=== PATIENT | male | born 1975 | race Caucasian/White ===

== ENCOUNTER 2017-02-09 07:43 | Emergency (ER) | payer OTHER ==
[~2017-02-09] VITALS: Ht 172.7 cm; Wt 146.0 kg
[~2017-02-09 07:43] MED LIST: ALBU0.08 INH; ASPCH81X PO; ATOR10TA88 PO; BUPRTAB51 PO; HYDR50TA3 PO; LISI20TA3 PO; MONT1TAB3 PO; NTRGSL/4 UT; PANT40TA PO; POTA-327 PO; VERA240T20 PO; VNTHFA/IN INH
[2017-02-09 07:45] VITALS: Ht 172.7 cm; Wt 146.0 kg
[2017-02-09] MEDS ORDERED: POTA10CA28 PO (08:16)
[2017-02-09] MEDS ORDERED: ALBINS/ INH (08:21)
[2017-02-09 08:40] LABS: BASO % 0.2 %; BASO ABS # 0.02 K/uL (0-0.2); COMPLETE YES; EOS % 0.6 %; HEMATOCRIT 42.5 % (42-52); IG% 0.8 %; LYMPH % 11.2 %; LYMPH ABS # 1.38 K/uL (1.2-3.4); MEAN CELL VOLUME 88.7 fL (80-100); MEAN CORPUSCULAR HEMOGLOBIN 30.3 pg (25-34); MEAN CORPUSCULAR HGB CONC 34.1 g/dl (32-36); MONO % 8.1 %; NEUT % 79.1 %; PLATELET COUNT 319 K/uL (130-400); RED BLOOD COUNT 4.79 M/uL (4.7-6.1); WHITE BLOOD COUNT 12.27 K/uL (4.8-10.8)
[2017-02-09 08:52] LABS: PROTHROMBIN TIME (PATIENT) 10.8 SECONDS (9.0-12.0)
[2017-02-09 08:57] LABS: BUN/CREATININE RATIO 13.6 (10-20); CALCIUM 8.4 mg/dl (8.5-10.1); POTASSIUM 3.7 mmol/L (3.5-5.1)
[2017-02-09 09:01] LABS: ALB/GLOB RATIO 0.8 (0.9-2); CKMB/CK RATIO 0.7 (0-3.0)
--- NOTE | 2017-02-09 09:50 | DIAGNOSTIC IMAGING REPORT ---
CHEST 2 VIEWS ROUTINE HISTORY: cough, chest pain COMPARISON: Chest 11/26/2016. FINDINGS: The lungs remain clear. The heart is normal in size. No pleural effusions. No pneumothorax. IMPRESSION: No acute process. Electronically signed by: Aguilar Juarez M.D. 02/09/2017 9:48 AM Dictated Date/Time: 02/09/2017 9:47 AM
--- NOTE | 2017-02-09 09:54 | DIAGNOSTIC IMAGING REPORT ---
LEFT RIBS UNILATERAL MIN 2 VIEWS CLINICAL HISTORY: left rib pain, fall yesterday COMPARISON STUDY: Chest 02/09/2017. FINDINGS: No acute left rib fractures. No pneumothorax. IMPRESSION: No acute left rib fractures. Electronically signed by: Aguilar Juarez M.D. 02/09/2017 9:52 AM Dictated Date/Time: 02/09/2017 9:51 AM
[2017-02-09 11:24] VITALS: BP 138/81; PULSE 79; TEMP 36.8; O2SAT 98
[2017-02-09] MEDS ORDERED: AZITTAB PO ×2 (11:54→12:06)
--- NOTE | 2017-02-09 11:54 | EMERGENCY ROOM VISIT NOTE ---
History First contact with patient: 07:49 Chief Complaint: CARDIAC ASSESSMENT Stated Complaint: TIGHTNESS IN CHEST, LEFT ARM PAIN, FELL Nursing Triage Summary: pt to the ED with c/o fall yesterday and went out to shovel and now has chest tightness and cough with burning fell on left side and has rib pain and couldn't sleep History of Present Illness Patient is a 41-year-old white male with past medical history significant for morbid obesity, asthma, hypertension, GERD and history of renal cell carcinoma status post partial left nephrectomy. He presents to the emergency department for evaluation of chest pain, shortness of breath, cough and left-sided rib pain. Patient reports that he had an upper respiratory illness for about a week. He reports sinus pressure, nasal congestion and a slight cough. Yesterday, he felt like his symptoms are worsened. He noted his cough was productive of some scant yellow sputum, but he felt more short of breath. He also developed some left-sided chest discomfort that he describes as both burning and aching in nature, which radiated slightly to the left upper chest and shoulder. He did nebulizer treatments 2 yesterday without relief. He also reports that he sustained a fall to his left side yesterday when he went out to [facility]. This occurred around 8:00 in the morning. He states that he tried to shovel, but had to stop due to his shortness of breath. He did not note any worsening pain with the exertion. He had difficulty sleeping due to his shortness of breath. He reports feeling slightly nauseous, and vomited up water that he had to drink early this morning. He reports a remote history of a PE about 3 years ago which occurred in the setting of a surgical procedure. His most recent cardiac catheterization was in December of this year performed in [place] which was reportedly clear. The patient has a family history of an early cardiac , but he himself has never had an OH. He had nitroglycerin, but did not use it for his chest pain because he did not feel that it was related to his heart. He has not had a fever. He presently rates his left- sided red/chest discomfort a 10/10. Review of Systems Review of systems as per HPI. All other systems reviewed were negative. 10 systems reviewed. Past Medical/Surgical History Medical Problems: (1) ASTHMA, UNSPECIFIED, W (ACUTE) EXACERBATION (2) Asthma, Unspecified, W (Acute) Exacerbation (3) Asthma, Unspecified, W (Acute) Exacerbation (4) BENIGN HYPERTENSION (5) BODY MASS INDEX 50.0-59.9, ADULT (6) Cancer of kidney (7) Diab Hannah Wo Compl, Type Ii Or Unspec Type, Not Uncntrld (8) GENERALIZED ANXIETY DIS (9) HX-PENICILLIN ALLERGY (10) Hypertension Nos (11) MORBID OBESITY (12) Renal cell carcinoma Electronic medical records are reviewed and summarized as above/below. See Problem List. Family History Diabetes mellitus FH: heart disease Hypertension Social History Smoking Status: Never Smoker Alcohol Use: none Drug Use: none Marital Status: Housing Status: lives with family Occupation Status: employed Current/Historical Medications Scheduled Albuterol Sulf (Proventil 0.083% 2.5MG/3ML), 2.5 MG INH HS Aspirin (Aspirin Chewable), 81 MG PO QAM Atorvastatin (Lipitor), 10 MG PO QAM Azithromycin (Zithromax Z-Yehuda), 0 PO UD Bupropion (Wellbutrin-Xl), 300 MG PO QAM Hydrochlorothiazide (Hctz), 50 MG PO QAM Lisinopril (Prinivil), 40 MG PO QAM Montelukast Sodium (Singulair), 10 MG PO QAM Pantoprazole (Protonix), 40 MG PO BID Potassium Chloride (Micro-K Ext Rel), 10 MEQ PO BID Verapamil Sust Rel (Calan Sr Ext Rel), 240 MG PO QAM Scheduled PRN Albuterol Hfa (Ventolin Hfa), 2 PUFFS INH QID PRN for Shortness of Breath Nitroglycerin (Nitrostat), 0.4 MG UT UD PRN for Chest Pain Allergies Coded Allergies: Acetaminophen (Unverified Allergy, Intermediate, UPSET STOMACH/ NO BOWEL MOVEMENT, 02/09/17) Ketorolac (Unverified Allergy, Intermediate, UPSET STOMACH/ ITCHY, 02/09/17 ) Oxycodone (Unverified Allergy, Intermediate, UPSET STOMACH/ NO BOWEL MOVEMENT, 02/09/17) Penicillins (Verified Allergy, Mild, THROAT SWELLING, 02/09/17) Physical Exam Vital Signs Date Time Temp Pulse Resp B/P Pulse Ox O2 Delivery O2 Flow Rate FiO2 02/09/17 11:24 36.8 79 18 138/81 98 Room Air 02/09/17 09:50 78 18 144/89 98 Room Air 02/09/17 08:08 85 02/09/17 07:45 37.2 93 20 173/106 96 Physical Exam CONSTITUTIONAL: Patient is obese 41-year-old white male who is awake and alert and in no acute distress. Oxygen saturation is 96% on room air. Respiratory rate 20 and unlabored. No conversational dyspnea noted. EYES: Pupils equal, round, reactive to light and accommodation. EOMs intact without nystagmus. Sclera are anicteric. ENT: Tympanic membranes intact, with normal landmarks. External canals are clear. Oral and nasopharynx are clear. Mucous membranes are moist, no lesions , tongue and gums appear normal. NECK: No bruits auscultated. Supple without lymphadenopathy. No thyromegaly. No meningeal signs. Full active range of motion without discomfort. CARDIOVASCULAR: Regular rate and rhythm, with normal S1 and S2, no murmur or gallop or rub is heard. No carotid bruits auscultated. No JVD. Peripheral pulses easy to palpable. RESPIRATORY: Breath sounds equal and clear to auscultation without wheezes, rales, or rhonchi heard. Full and equal chest expansion without accessory muscle use or retractions. He has slight tenderness to palpation over the inferior left mid axillary line. GI: Bowel sounds are present. Abdomen is soft, nontender, nondistended. No organomegaly. No pulsatile masses. No guarding or rebound. MUSCULOSKELETAL: Full range of motion of extremities x 4 with good strength. No cyanosis, edema, joint tenderness or swelling. No deformity. INTEGUMENTARY: No lesions or rash, normal skin turgor. NEUROLOGICAL: Alert, oriented, and cooperative. Cranial nerves, sensation and strength grossly intact. Pupils round, equal, and react to light, EOMs are full. LYMPH: No lymphadenopathy. Medical Decision & Procedures ER Provider Diagnostic Interpretation: CHEST 2 VIEWS ROUTINE HISTORY: cough, chest pain COMPARISON: Chest 11/26/2016. FINDINGS: The lungs remain clear. The heart is normal in size. No pleural effusions. No pneumothorax. IMPRESSION: No acute process. LEFT RIBS UNILATERAL MIN 2 VIEWS CLINICAL HISTORY: left rib pain, fall yesterday COMPARISON STUDY: Chest 02/09/2017. FINDINGS: No acute left rib fractures. No pneumothorax. IMPRESSION: No acute left rib fractures. Laboratory Results 02/09/17 08:30 Red Blood Count 4.79, Mean Corpuscular Volume 88.7, Mean Corpuscular Hemoglobin 30.3, Mean Corpuscular Hemoglobin Concent 34.1, Mean Platelet Volume 9.0, Neutrophils (%) (Auto) 79.1, Lymphocytes (%) (Auto) 11.2, Monocytes (%) (Auto) 8.1, Eosinophils (%) (Auto) 0.6, Basophils (%) (Auto) 0.2, Neutrophils # (Auto) 9.70, Lymphocytes # (Auto) 1.38, Monocytes # (Auto) 1.00, Eosinophils # (Auto) 0.07, Basophils # (Auto) 0.02 02/09/17 08:30 Test 02/09/17 08:30 White Blood Count 12.27 K/uL (4.8-10.8) Red Blood Count 4.79 M/uL (4.7-6.1) Hemoglobin 14.5 g/dL (14.0-18.0) Hematocrit 42.5 % (42-52) Mean Corpuscular Volume 88.7 fL (80-100) Mean Corpuscular Hemoglobin 30.3 pg (25-34) Mean Corpuscular Hemoglobin Concent 34.1 g/dl (32-36) Platelet Count 319 K/uL (130-400) Mean Platelet Volume 9.0 fL (7.4-10.4) Neutrophils (%) (Auto) 79.1 % Lymphocytes (%) (Auto) 11.2 % Monocytes (%) (Auto) 8.1 % Eosinophils (%) (Auto) 0.6 % Basophils (%) (Auto) 0.2 % Neutrophils # (Auto) 9.70 K/uL (1.4-6.5) Lymphocytes # (Auto) 1.38 K/uL (1.2-3.4) Monocytes # (Auto) 1.00 K/uL (0.11-0.59) Eosinophils # (Auto) 0.07 K/uL (0-0.5) Basophils # (Auto) 0.02 K/uL (0-0.2) RDW Standard Deviation 45.2 fL (36.4-46.3) RDW Coefficient of Variation 13.8 % (11.5-14.5) Immature Granulocyte % (Auto) 0.8 % Immature Granulocyte # (Auto) 0.10 K/uL (0.00-0.02) Prothrombin Time 10.8 SECONDS (9.0-12.0) Prothromb Time International Ratio 1.0 (0.9-1.1) Activated Partial Thromboplast Time 25.9 SECONDS (21.0-31.0) Partial Thromboplastin Ratio 1.0 Anion Gap 7.0 mmol/L (3-11) Est Creatinine Clear Calc Drug Dose 134.0 ml/min Estimated GFR () 106.4 Estimated GFR (Non- 91.8 BUN/Creatinine Ratio 13.6 (10-20) Calcium Level 8.4 mg/dl (8.5-10.1) Total Bilirubin 0.4 mg/dl (0.2-1) Aspartate Amino Transf (AST/SGOT) 27 U/L (15-37) Alanine Aminotransferase (ALT/SGPT) 53 U/L (12-78) Alkaline Phosphatase 100 U/L (45-117) Total Creatine Kinase 234 U/L (39-308) Creatine Kinase MB 1.7 ng/ml (0.5-3.6) Creatine Kinase MB Ratio 0.7 (0-3.0) Troponin I < 0.015 ng/ml (0-0.045) Total Protein 7.6 gm/dl (6.4-8.2) Albumin 3.4 gm/dl (3.4-5.0) Globulin 4.2 gm/dl (2.5-4.0) Albumin/Globulin Ratio 0.8 (0.9-2) ECG Indication: chest pain, SOB/dyspnea Rate (beats per minute): 90 Rhythm: normal sinus Findings: no acute ischemic change, no ectopy Change: no significant change ED Course Patient was seen and assessed as above. Old records were reviewed. IV access was obtained. Laboratory studies were collected including CBC with differential , coags, CMP, cardiac enzymes and urine dip. Chest x-ray and left rib x-rays were obtained. EKG did not demonstrate acute ischemic changes. Urine dip was negative for hematuria. Chest x-ray did not demonstrate any acute findings. No evidence for failure, consolidation, pneumonia or effusion. Left rib x-rays were negative for fracture. Laboratory studies noted a minimally elevated white count at 12,000 H&H is normal. Electrolytes are within normal limits. Liver functions are not elevated. Cardiac enzymes are negative 1, with chest pain symptoms ongoing for roughly 24 hours. Laboratory and diagnostic imaging studies were reviewed with attending physician. I suspect the patient's symptoms are multifactorial. He has underlying asthma and has had an upper respiratory illness for the last week which appears to be getting worse. He likely has an exacerbation of his asthma , possibly an early bronchitis. He does not have any evidence for pneumonia on exam. He also fell and hit the left ribs yesterday, but does not have any evidence for pneumothorax, rib fracture and I do not suspect retroperitoneal or intra-abdominal injury. His testing is not consistent with cardiac etiology at this time. He had a negative cardiac catheterization about a year ago. The patient was reassured. He was encouraged to continue his inhalers as prescribed. I did discuss a short course of prednisone with the patient, but he states that he has not tolerated the side effects well in the past and declines. He was given a prescription for a Z-Yehuda should his symptoms not improve with supportive care over the next 2-3 days. He is educated on the worrisome signs or symptoms for which she should return to the emergency department. He was discharged home in the care of family in good condition. He rated his discomfort a 0/10 at discharge. Medical Decision See ED course Impression Primary Impression: Left sided chest pain Additional Impressions: URI (upper respiratory infection) Rib pain on left side Fall Departure Information Prescriptions Azithromycin (ZITHROMAX Z-YEHUDA) 250 Mg Tab 0 PO UD, #1 PKT 2 TABS DAY 1, THEN 1 TAB DAILY FOR 4 DAYS Prov: Nunu Kulkarni PA 02/09/17 Referrals Mya Galvan D.O. (PCP) Patient Instructions My [facility] Additional Instructions Azithromycin(Z-Yehuda) : Take one a day for 5 additional days. All antibiotics can cause diarrhea. If this occurs and you feel worse or it does not resolve in 1-2 days follow up with your doctor or return to the Emergency Department as this could be signs of serious underlying problems. Any medication can cause an allergic reaction, stop the pills immediately and return to the ER for rash, hives, breathing difficulties, or swelling. Continue inhalers/nebulizers as prescribed. Ibuprofen(Motrin, Advil) may be used for fever or pain. Use 600mg every six hours as needed. Take with food. Avoid using more than 2400mg in a 24 hour period. Do not use 2400mg per day for more than three consecutive days without physician direction. Prolonged inappropriate use can lead to stomach upset or ulcers. This is available over the counter and typically comes in 200mg tablets. (AND/OR) Acetaminophen(Tylenol) may be used for fever or pain. Use 1000mg every eight hours as needed. Avoid using more than 3000mg in a 24 hour period. This is available over the counter. Read all the package inserts or medication information paperwork provided. If you have any questions or concerns call your primary provider, pharmacist or the ER for assistance. Controlling your fever with Tylenol and Ibuprofen as above will make you feel better. Rest and drink plenty of fluids. Avoid strenuous activity until your symptoms resolve and your breathing returns to normal. Continue current medications. Return to the ER for chest pain, difficulty breathing, persistent fevers, vomiting, worsening of your condition, or as needed. Follow-up with your primary care physician in 3-5 days for recheck. If your symptoms are not improving by this weekend, so and take the prescription for azithromycin. Problem Qualifiers
== END 2017-02-09 11:54 | disposition home or self-care (01) ==
LOC: C.EDB 07:45
DX: R07.81 Pleurodynia (principal); J06.9 Acute upper respiratory infection, unspecified; W19.XXXA Unspecified fall, initial encounter; Y93.H1 Activity, digging, shoveling and raking; J45.909 Unspecified asthma, uncomplicated; I10 Essential (primary) hypertension; Z85.528 Personal history of other malignant neoplasm of kidney; Z90.5 Acquired absence of kidney; E11.9 Type 2 diabetes mellitus without complications; E66.01 Morbid (severe) obesity due to excess calories; Z83.3 Family history of diabetes mellitus; Z82.49 Family history of ischemic heart disease and other diseases of the circulatory system; Z79.82 Long term (current) use of aspirin; Z79.899 Other long term (current) drug therapy

== ENCOUNTER → 2017-02-16 | Outpatient (CLI) | payer OTHER ==
[~2017-02-16] MED LIST changes: +ALBINS/ INH; -ALBU0.08 INH; +AZITTAB PO; -POTA-327 PO; +POTA10CA28 PO
[2017-02-16 09:51] LABS: BLOOD UREA NITROGEN 17 mg/dl (7-18); CALCIUM 8.9 mg/dl (8.5-10.1); CARBON DIOXIDE 31 mmol/L (21-32); CHLORIDE 103 mmol/L (98-107); GLUCOSE 96 mg/dl (70-99); POTASSIUM 3.6 mmol/L (3.5-5.1); SODIUM 140 mmol/L (136-145)
== END | disposition home or self-care (01) ==
LOC: C.LAB 08:29
PROVIDERS: ATTEND Family Medicine
DX: K05.6 Periodontal disease, unspecified (principal)

== ENCOUNTER 2017-03-09 13:14 | Emergency (ER) | payer OTHER ==
[~2017-03-09 13:14] MED LIST changes: +ATOR10TA82 PO; -ATOR10TA88 PO
[2017-03-09 13:26] VITALS: Ht 172.7 cm
[2017-03-09] MEDS ORDERED: HYDROCODONE/ACETAMINOPHEN 7.5/325MG TAB PO STA (15:19)
--- NOTE | 2017-03-09 15:23 | EMERGENCY ROOM VISIT NOTE ---
ED Visit Note First contact with patient: 13:28 CHIEF COMPLAINT: "Dental pain, bleeding". HISTORY OF PRESENT ILLNESS: This 41-year-old male patient presented to the emergency department via private vehicle accompanied by female for evaluation of his bleeding, status post dental extraction this morning. The patient had nearly all of his teeth removed today around [address] Goff of [place]. The patient states that since then he has had continued bleeding, and mcc home he called the office and stated that he is experiencing continued bleeding in the office said that he may return or go to the local ER. He decided to the ER. He denies any blood thinners, rates his pain as a 10/10. He does furnish a prescription written by the dentist office for clindamycin and Pennock. REVIEW OF SYSTEMS: A 6 system review of systems was completed with positives and pertinent negatives listed in the HPI. ALLERGIES: Acetaminophen, Toradol, oxycodone, penicillins. MEDICATIONS: As noted below. PMH: High blood pressure, asthma, stomach problems SOCIAL HISTORY: Patient lives at home with . PHYSICAL EXAM: Vitals are noted on the nurse's note and reviewed by myself. Vital signs stable. He is nontoxic in appearance. GENERAL -41-year-old male appearing his stated age who is in no acute distress. Communicates well with provider and answers questions appropriately. The patient does have difficulty talking as he does have gauze in his mouth. HEAD - NC/AT. EYES - Sclera anicteric. Palpebral conjunctiva pink and moist with no injection noted. MOUTH/OROPHARYNX - Without perioral cyanosis. Buccal mucosa pink and moist and without leukoplakia. Tongue midline with equal elevation of palate bilaterally. No tonsillar hypertrophy, erythema, or exudates noted. No there is evidence of recent extraction of all of the patient's teeth. There are many sockets that currently have evidence of recent bleeding. There is oozing of blood from all of these sites without evidence of hemorrhage. Posterior pharynx is patent. ED COURSE: Patient was seen and evaluated as above. After obtaining a thorough history and physical examination he was appearing that the patient is experiencing normal bleeding secondary to recent dental extraction. Gauze was in the patient's mouth, and when mixed with saliva the gauze became saturated with diluted blood. This was removed, the patient was given water to cleanse the mouth, he then rinse the mouth and I repacked these regions with cause. Patient tolerated this well. After period of 2 hours he had the packing repeated and was reevaluated many times her stay. I did elect to discuss the case with my attending, and subsequently with the office of which the patient had recently been to. I recommended that I take a teabag and wrapped this and gauze, saturated region in place in the patient's mouth. I discussed this with the patient, and two decaffeinated tea bags were utilized. The patient tolerated this well. The bleeding did begin to slow down. I believe that at this time he is stable for discharge as the bleeding appears to be what is expected given the procedure. He is not lightheaded or showing evidence of anemia. He was given one Pennock tablet here for his pain. I see that the patient has an acetaminophen and oxycodone allergy however the patient states that when he takes his medications he gets an upset stomach, but is able to take these and would like something for the pain. He also furnishes prescription for the same medication. He was educated upon worrisome symptoms which to return, had questions prior to discharge, and was discharged home in good condition. In the evaluation and treatment of this patient, the following differential diagnoses were considered: Periapical Abscess, normal post-operative bleeding, Osteonecrosis of the Jaw, Dental Fracture, Dental Caries, Hema's Angina, Vincent's Angina, Facial Cellulitis. Problem List Medical Problems: (1) ASTHMA, UNSPECIFIED, W (ACUTE) EXACERBATION Status: Chronic (2) BENIGN HYPERTENSION Status: Chronic (3) BODY MASS INDEX 50.0-59.9, ADULT Status: Chronic (4) Cancer of kidney Status: Chronic (5) GENERALIZED ANXIETY DIS Status: Chronic (6) HX-PENICILLIN ALLERGY Status: Chronic (7) MORBID OBESITY Status: Chronic (8) Renal cell carcinoma Status: Chronic Current/Historical Medications Scheduled Albuterol Sulf (Proventil 0.083% 2.5MG/3ML), 2.5 MG INH HS Aspirin (Aspirin Chewable), 81 MG PO QAM Atorvastatin (Lipitor), 10 MG PO QAM Azithromycin (Zithromax Z-Yehuda), 0 PO UD Bupropion (Wellbutrin-Xl), 300 MG PO QAM Hydrochlorothiazide (Hctz), 50 MG PO QAM Lisinopril (Prinivil), 40 MG PO QAM Montelukast Sodium (Singulair), 10 MG PO QAM Pantoprazole (Protonix), 40 MG PO BID Potassium Chloride (Micro-K Ext Rel), 10 MEQ PO BID Verapamil Sust Rel (Calan Sr Ext Rel), 240 MG PO QAM Scheduled PRN Albuterol Hfa (Ventolin Hfa), 2 PUFFS INH QID PRN for Shortness of Breath Nitroglycerin (Nitrostat), 0.4 MG UT UD PRN for Chest Pain Allergies Coded Allergies: Acetaminophen (Unverified Allergy, Intermediate, UPSET STOMACH/ NO BOWEL MOVEMENT, 02/09/17) Ketorolac (Unverified Allergy, Intermediate, UPSET STOMACH/ ITCHY, 02/09/17 ) Oxycodone (Unverified Allergy, Intermediate, UPSET STOMACH/ NO BOWEL MOVEMENT, 02/09/17) Penicillins (Verified Allergy, Mild, THROAT SWELLING, 02/09/17) Vital Signs Date Time Temp Pulse Resp B/P Pulse Ox O2 Delivery O2 Flow Rate FiO2 03/09/17 15:33 72 16 166/85 99 03/09/17 13:26 72 20 177/107 96 Room Air Medications Administered Medications (Trade) Dose Ordered Sig/Edouard Route Start Time Stop Time Status Last Admin Dose Admin Acetaminophen/ Hydrocodone Bitart (Pennock 7.5/325 Tab) 1 tab NOW STAT PO 03/09/17 15:19 03/09/17 15:22 DC 03/09/17 15:32 1 TAB Departure Information Impression Primary Impression: S/P tooth extraction Additional Impression: Bleeding gums Dispostion Home / Self-Care Condition GOOD Referrals Mya Galvan D.ORamiro (PCP) Forms HOME CARE DOCUMENTATION FORM, IMPORTANT VISIT INFORMATION Patient Instructions My [facility] Additional Instructions You have been treated in the Emergency Department for Dental Pain/bleeding. You have received pain medicine in the emergency department which impairs your ability to operate a vehicle. It is illegal for you to drive after receiving these medicines. You may take the prescription of clindamycin and Pennock to your prescribed by the dentist. Refrain from smoking cigarettes or using chewing tobacco until you have been evaluated by your dentist. Keeping beverages lukewarm and consuming soft foods can decrease your pain. Warm compresses over the affected area may offer some relief. You MUST seek evaluation of your dental pain by a dentist following your visit to the Emergency Department. The Emergency Department is not capable of treating dental issues long-term. You should call your dentist as soon as possible to make an appointment for evaluation of your dental pain. Please keep your follow-up appointment with the dentist. Return to the emergency department if you develop the following symptoms despite treatment course outlined above: fever, intractable pain, increased redness, swelling, or purulent discharge. Please return to the emergency department with any new/concerning symptoms. Problem Qualifiers
[2017-03-09 15:33] VITALS: BP 166/85; PULSE 72; O2SAT 99
[2017-09-05] MEDS ORDERED: HYD50 PO (09:16)
[2017-09-05] MEDS ORDERED: LISI40TA PO (09:16)
[2017-09-05] MEDS ORDERED: ATOR10TA82 PO (09:16)
[2017-09-05] MEDS ORDERED: PANT40TA PO (09:16)
[2017-09-05] MEDS ORDERED: MONT1TAB3 PO (09:16)
[2017-09-05] MEDS ORDERED: BUPRTAB51 PO (09:16)
[2017-09-05] MEDS ORDERED: VERA180T PO (09:16)
[2017-09-05] MEDS ORDERED: CITA40TA12 PO (09:16)
== END 2017-03-09 15:34 | disposition home or self-care (01) ==
LOC: C.EDB 13:16 → C.EDD 15:34
DX: K08.409 Partial loss of teeth, unspecified cause, unspecified class (principal); K91.840 Postprocedural hemorrhage of a digestive system organ or structure following a digestive system procedure; I10 Essential (primary) hypertension; J45.909 Unspecified asthma, uncomplicated; E66.01 Morbid (severe) obesity due to excess calories; C64.9 Malignant neoplasm of unspecified kidney, except renal pelvis; Z79.82 Long term (current) use of aspirin

== ENCOUNTER 2017-04-16 10:44 | Emergency (ER) | payer OTHER ==
[~2017-04-16] VITALS: Ht 172.7 cm; Wt 113.2 kg
[2017-04-16 10:46] VITALS: Ht 172.7 cm; Wt 113.2 kg
--- NOTE | 2017-04-16 11:45 | DIAGNOSTIC IMAGING REPORT ---
LEFT ELBOW MIN 3 VIEWS ROUTINE CLINICAL HISTORY: L elbow pain COMPARISON: None. DISCUSSION: The bones and joint spaces appear intact. There is no evidence of fracture, dislocation or bony disease. There is no evidence for soft tissue swelling. IMPRESSION: Negative study. Electronically signed by: Raudel Kerr M.D. 04/16/2017 11:43 AM Dictated Date/Time: 04/16/2017 11:43 AM
[2017-04-16 12:10] VITALS: BP 163/92; PULSE 58; TEMP 36.6; O2SAT 95
--- NOTE | 2017-04-16 19:03 | EMERGENCY ROOM VISIT NOTE ---
ED Visit Note First contact with patient: 11:01 Chief Complaint: Left arm pain. History of Present Illness: Mr. Hdoge is a 41-year-old white male who ambulates into the ED complaining of left arm pain over the medial aspect of the left elbow. 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 He reports since that time he has been having moderate to severe pain over the lateral aspect of the elbow. He describes his pain as a sharp sensation. He rates his discomfort 10/10. The pain is nonradiating. Pain worsens with palpation and the last few degrees of flexion. He has not identified any alleviating factors related to the pain. He reports he has been using acetaminophen; even notice listed on his allergy list, without relief of his discomfort. Associated with his pain he feels the area of his pain is also swollen. He denies fevers, chills, sweats, skin eruptions, skin color changes, neck pain , shoulder pain, wrist pain, hand pain, arm weakness/numbness/tingling. He also denies any previous significant injuries or surgeries to the elbow. Review of Systems: As noted above in history of present illness. At least body systems were reviewed and found to be negative as noted above. Past Medical History: Asthma, hypertension, obesity, kidney cancer, diabetes, anxiety. Current Medications: Medications Dose Route/Sig Max Daily Dose Days Date Category Dose Instructions Zithromax Z-Yehuda (Azithromycin) 250 Mg Tab 0 PO UD 02/09/17 Rx 2 TABS DAY 1, THEN 1 TAB DAILY FOR 4 DAYS Proventil 0.083% 2.5MG/3ML (Albuterol Sulf) 2.5 Mg/3 Ml Nebu 2.5 Mg INH HS 02/09/17 Reported Micro-K Ext Rel (Potassium Chloride) 10 Meq Capcr 10 Meq PO BID 02/09/17 Reported Aspirin Chewable (Aspirin) 81 Mg Chew 81 Mg PO QAM 06/23/16 Reported Protonix (Pantoprazole Sodium) 40 Mg Tab 40 Mg PO BID 06/23/16 Reported Wellbutrin-Xl (Bupropion HCl) 300 Mg Tabcr 300 Mg PO QAM 01/20/16 Reported Calan Sr Ext Rel (Verapamil HCl) 240 Mg Tabcr 240 Mg PO QAM 05/20/15 Reported Prinivil (Lisinopril) Unknown Strength Tab 1 Tab PO QAM 04/07/15 Reported Nitrostat (Nitroglycerin) 0.4 Mg Tab 0.4 Mg UT UD PRN 01/31/15 Reported Lipitor (Atorvastatin Calcium) 10 Mg Tab 10 Mg PO QAM 04/07/14 Reported Singulair (Montelukast Sodium) 10 Mg Tab 10 Mg PO QAM 09/12/13 Reported Ventolin Hfa (Albuterol) 200 Puffs/84815 Mcg Aers 2 Puffs INH QID PRN 01/20/13 Reported Hctz (Hydrochlorothiazide) 50 Mg Tab 50 Mg PO QAM 01/20/13 Reported Allergies to Medications: Acetaminophen, oxycodone, penicillin, Toradol. Social History: Patient is currently employed; he feels safe in his home environment; he denies tobacco use. Physical Examination: Vital Signs: Date Time Temp Pulse Resp B/P Pulse Ox O2 Delivery O2 Flow Rate FiO2 04/16/17 12:10 36.6 58 16 163/92 95 04/16/17 10:46 36.6 56 16 163/92 96 Room Air GENERAL: 41-year-old male in mild distress due to pain, nontoxic-appearing, afebrile and hemodynamically stable. NEUROLOGICAL: Awake, alert and oriented to person, place and time. Answering questions appropriately and following commands. SKIN: Warm, dry and pink. No soft tissue eruptions or trauma noted. LEFT UPPER EXTREMITY: No gross bony deformity. No tenderness in the shoulder, proximal humerus, forearm, wrist or hand. Moderate tenderness over the medial epicondyle of the distal humerus. I do not appreciate any bony deformity or crepitus. There is no swelling or ecchymosis. No ligamentous laxity. Patient is able to reach full extension without discomfort but the last few degrees of flexion worsens his discomfort. Additionally he has discomfort with pronation but not supination. Throughout the forearm and hand the skin was warm and pink. Capillary refill is brisk. Distal pulses and sensation are intact. ED Course: Patient is assessed as noted above. Left Elbow X-Rays: Were read by myself and the radiologist shows no acute fractures or dislocations. No elevation of the fat pads or no effusion within the joint. Patient was given ice for pain and comfort. Patient's elbow was wrapped in an Adrian bandage for support. Patient was educated about today's findings and instructed on his treatment plan ; he verbalizes understanding and agreement with this plan. Clinical Impression: Left elbow pain. Decision-Making: Initially my differential diagnosis I considered fracture, subluxation, joint effusion, contusion and other causes. Disposition: Patient discharged home in stable condition; prior to departure he was reassessed and subjectively reported he was feeling better and rated his discomfort 3/10. Plan: Comfort measures were discussed with the patient including rest, ice and ibuprofen use. Patient was encouraged to follow-up with his primary care provider if no better in 3-5 days. Patient was encouraged return the ED for worsening/uncontrolled pain, elbow swelling, numbness, weakness of the extremity/lower arm/hand or any new/ concerning symptoms.
[2017-09-05] MEDS ORDERED: HYD50 PO (09:16)
[2017-09-05] MEDS ORDERED: BUPRTAB51 PO (09:16)
[2017-09-05] MEDS ORDERED: PANT40TA PO (09:16)
[2017-09-05] MEDS ORDERED: LISI40TA PO (09:16)
[2017-09-05] MEDS ORDERED: CITA40TA12 PO (09:16)
[2017-09-05] MEDS ORDERED: MONT1TAB3 PO (09:16)
[2017-09-05] MEDS ORDERED: ATOR10TA82 PO (09:16)
[2017-09-05] MEDS ORDERED: VERA180T PO (09:16)
== END 2017-04-16 12:11 | disposition home or self-care (01) ==
LOC: C.EDB 10:45 → C.EDD 12:11
DX: M25.522 Pain in left elbow (principal); I10 Essential (primary) hypertension; E11.9 Type 2 diabetes mellitus without complications; F41.9 Anxiety disorder, unspecified; J45.909 Unspecified asthma, uncomplicated; Z85.528 Personal history of other malignant neoplasm of kidney; Z79.82 Long term (current) use of aspirin; Z79.899 Other long term (current) drug therapy; Z88.0 Allergy status to penicillin; Z88.5 Allergy status to narcotic agent; Z88.6 Allergy status to analgesic agent; Z88.8 Allergy status to other drugs, medicaments and biological substances

== ENCOUNTER → 2017-09-06 | Day surgery (SDC) | payer OTHER ==
[2017-09-05 09:16] VITALS: Ht 172.7 cm; Wt 128.6 kg
[~2017-09-06] VITALS: Ht 172.7 cm; Wt 128.6 kg
[~2017-09-06] MED LIST changes: -ATOR10TA82 PO; +ATOR10TA88 PO; -AZITTAB PO; +CITA40TA12 PO; +HYD50 PO; -HYDR50TA3 PO; +KETAMINE HCL INJ 50 MG/ML 10 ML VIAL ONE; +LIDOCAINE HCL 2% 2 ML VIAL (20MG/ML) ONE; -LISI20TA3 PO; +LISI40TA PO; +MIDAZOLAM HCL 1 MG/ML 2ML VIAL ONE; +PROPOFOL IV EMULSION 10 MG/ML 20 ML VIAL IV ONE; +SODIUM CHLORIDE 0.9% 500ML 500 ML IV ONE; +VERA180T PO; -VERA240T20 PO
--- NOTE | 2017-09-06 10:02 | Endo History and Physical ---
History & Physical Date of Service: Sep 06, 2017. Chief Complaint: lower abdominal pain and diarrhea,upper gastric pain Referring Physician: Dr. Mya Galvan History of Present Illness chronic diarrhea and abdominal pain Past Medical History Arthritis, Asthma, Male Genitourinary Prob., Pulmonary Emboli, Anxiety, Reflux, Cancer, Sleep Apnea, Hypertension, Depression Past Surgical History Hx Cardiac Surgery: No Hx Internal Defibrillator: No Hx Pacemaker: No Hx Abdominal Surgery: No Hx Post-Op Nausea and Vomiting: No Hx Cancer Surgery: Yes (PARTIAL LEFT NEPRHECTOMY, LEFT UNDER EYE MOHS PROCEDURE ) Hx Thoracic Surgery: No Hx Orthopedic: No Hx Urinary Tract Surgery: No Family History Colon CA, IBD Social History Smoking Status: Never Smoker Hx Substance Use: No Hx Alcohol Use: Yes (RARELY) Allergies Coded Allergies: Acetaminophen (Verified Allergy, Intermediate, UPSET STOMACH/ NO BOWEL MOVEMENT, 09/06/17) Ketorolac (Verified Allergy, Intermediate, UPSET STOMACH/ ITCHY, 09/06/17) Oxycodone (Verified Allergy, Intermediate, UPSET STOMACH/ NO BOWEL MOVEMENT, 09/06/17) Penicillins (Verified Allergy, Mild, THROAT SWELLING, 09/05/17) Tramadol (Verified Allergy, Unknown, RASH, UPSET STOMACH, 09/05/17) Current Medications Reported Home Medications Medications Dose Route/Sig Max Daily Dose Days Date Category Calan Sr Ext Rel (Verapamil Hcl) 180 Mg Tab 180 Mg PO QAM 09/05/17 Reported Singulair (Montelukast Sodium) 10 Mg Tab 10 Mg PO QAM 09/05/17 Reported Hydrochlorothiazide 50 Mg Tab 1 Tab PO QAM 09/05/17 Reported Lipitor (Atorvastatin Calcium) 10 Mg Tab 10 Mg PO QAM 09/05/17 Reported Zestril (Lisinopril) 40 Mg Tab 40 Mg PO QAM 09/05/17 Reported Celexa (Citalopram Hydrobromide) 40 Mg Tab 40 Mg PO QAM 09/05/17 Reported Protonix (Pantoprazole Sodium) 40 Mg Tab 40 Mg PO BID 09/05/17 Reported Wellbutrin Xl (Bupropion Hcl) 300 Mg Tab 300 Mg PO QAM 09/05/17 Reported Proventil 0.083% 2.5MG/3ML (Albuterol Sulf) 2.5 Mg/3 Ml Nebu 2.5 Mg INH HS 02/09/17 Reported Micro-K Ext Rel (Potassium Chloride) 10 Meq Capcr 10 Meq PO BID 02/09/17 Reported Aspirin Chewable (Aspirin) 81 Mg Chew 81 Mg PO QAM 06/23/16 Reported Nitrostat (Nitroglycerin) 0.4 Mg Tab 0.4 Mg UT UD PRN 01/31/15 Reported Ventolin Hfa (Albuterol) 200 Puffs/74480 Mcg Aers 2 Puffs INH QID PRN 01/20/13 Reported Vital Signs Weight (Kilograms): 128.64 Height (Feet): 5 Height (Inches): 8 Date Time Temp Pulse Resp B/P (MAP) Pulse Ox O2 Delivery O2 Flow Rate FiO2 09/06/17 09:41 36.9 65 20 119/76 (90) 97 Room Air Physical Exam General Appearance: no apparent distress Respiratory/Chest: Auscultation: breath sounds normal Cardiovascular: Heart Auscultation: RRR Abdomen: Inspection & Palpation: soft Liver: non-tender Assessment and Plan patient stable for EGD/Edward
--- NOTE | 2017-09-06 10:53 | GI REPORT ---
Procedure Date: 09/06/2017 9:58 AM Procedure: Upper GI endoscopy Indications: Epigastric abdominal pain, Endoscopy to assess diarrhea in patient suspected of having celiac disease Medicines: See the Anesthesia note for documentation of the administered medications Complications: No immediate complications. Estimated Blood Loss: Estimated blood loss was minimal. Procedure: Pre-Anesthesia Assessment: - Prior to the procedure, a History and Physical was performed, and patient medications, allergies and sensitivities were reviewed. The patient's tolerance of previous anesthesia was reviewed. - The risks and benefits of the procedure and the sedation options and risks were discussed with the patient. All questions were answered and informed consent was obtained. - Patient identification and proposed procedure were verified prior to the procedure by the physician and the nurse. The procedure was verified in the pre-procedure area. - Pre-procedure physical examination revealed no contraindications to sedation. - After reviewing the risks and benefits, the patient was deemed in satisfactory condition to undergo the procedure. After obtaining informed consent, the endoscope was passed under direct vision. Throughout the procedure, the patient's blood pressure, pulse, and oxygen saturations were monitored continuously. The scope was introduced through the mouth, and advanced to the fourth part of the duodenum. Small bowel enteroscopy was deemed necessary due to symptoms concerning for celiac. The upper GI endoscopy was accomplished without difficulty. The patient tolerated the procedure well. Findings: The esophagus was normal. The stomach was normal. The duodenum to the 4th part was normal. Biopsies for histology were taken with a cold forceps for evaluation of celiac disease. Verification of patient identification for the specimen was done by the physician and nurse using the patient's name and medical record number. Estimated blood loss was minimal. The cardia and gastric fundus were normal on retroflexion. Impression: - Normal esophagus. - Normal stomach. - Normal duodenum to the 4th part. Biopsied. Recommendation: - Await pathology results. - Perform a colonoscopy today. Luis Antonio Lantigua M.D. Luis Antonio Lantigua MD 09/06/2017 10:52:31 AM This report has been signed electronically. Note Initiated On: 09/06/2017 9:58 AM I attest to the content of the Intraoperative Record and orders documented therein, exceptions below
--- NOTE | 2017-09-06 10:55 | GI REPORT ---
Procedure Date: 09/06/2017 9:59 AM Procedure: Colonoscopy Indications: Chronic diarrhea Medicines: See the Anesthesia note for documentation of the administered medications Complications: No immediate complications. Estimated Blood Loss: Estimated blood loss was minimal. Procedure: Pre-Anesthesia Assessment: - See the other procedure note for documentation of the pre-procedure assessment. After I obtained informed consent, the scope was passed under direct vision. Throughout the procedure, the patient's blood pressure, pulse, and oxygen saturations were monitored continuously. The Scope was introduced through the anus and advanced to the cecum, identified by appendiceal orifice and ileocecal valve. The colonoscopy was performed without difficulty. The patient tolerated the procedure well. The quality of the bowel preparation was poor. Findings: The perianal and digital rectal examinations were normal. The colonic mucosa appeared normal. Biopsies for histology were taken with a cold forceps from the entire colon for evaluation of microscopic colitis. Verification of patient identification for the specimen was done by the physician and nurse using the patient's name and medical record number. Estimated blood loss was minimal. No additional abnormalities were found on retroflexion. Impression: - Preparation of the colon was poor. - The entire examined colon is normal. Biopsied. - No evidence of IBD. Recommendation: - Await pathology results. - Discharge patient to home. Luis Antonio Lantigua M.D. Luis Antonio Lantigua MD 09/06/2017 10:54:28 AM This report has been signed electronically. Note Initiated On: 09/06/2017 9:59 AM I attest to the content of the Intraoperative Record and orders documented therein, exceptions below
--- NOTE | 2017-09-06 10:55 | Discharge Instructions ---
Endoscopy Patient Instructions Date / Procedure(s) Performed Sep 06, 2017. Colonoscopy, EGD Allergy Information Coded Allergies: Acetaminophen (Verified Allergy, Intermediate, UPSET STOMACH/ NO BOWEL MOVEMENT, 09/06/17) Ketorolac (Verified Allergy, Intermediate, UPSET STOMACH/ ITCHY, 09/06/17) Oxycodone (Verified Allergy, Intermediate, UPSET STOMACH/ NO BOWEL MOVEMENT, 09/06/17) Penicillins (Verified Allergy, Mild, THROAT SWELLING, 09/05/17) Tramadol (Verified Allergy, Unknown, RASH, UPSET STOMACH, 09/05/17) Discharge Date / Findings Sep 06, 2017. normal EGD and colonoscopy. Biopsied. Medication Instructions Stopped Medication(s): no meds since Tuesday,all needed to be refilled Provider Instructions Activity Restrictions - No exercising or heavy lifting for 24 hours. - Do not drink alcohol the day of the procedure. - Do not drive a car or operate machinery until the day after the procedure. - Do not make any important decisions or sign important papers in 24 hours after the procedure. Following Day: - Return to full activity which may include returning to work/school. Diet Start your diet with liquids and light foods (jello, soup, juice, toast). Then eat your usual diet if not nauseated. Treatment For Common After Affects For mild abdominal pain, bloating, or excessive gas: - Rest - Eat lightly - Lie on right side Follow-Up Information Follow-up with Dr. Mya Galvan as scheduled Anesthesia Information What You Should Know You have had a procedure that required some medicine to reduce anxiety and discomfort. This treatment is called moderate sedation. After receiving the treatment, you may be sleepy, but you will be able to breathe on your own. The effects of the treatment may last for several hours. Follow these instructions along with Activity/Diet recommendations noted above: * Do NOT do anything where dizziness or clumsiness would be dangerous. * Rest quietly at home today, then you can be up and about tomorrow. * Have a responsible person stay with you the rest of today. * You may have had an I.V. today. If so, you may take the dressing off later today. Recommendations Call your doctor if: * Trouble breathing * Continuous vomiting for more than 24 hours * Temperature above 101 degrees * Severe abdominal pain or bloating * Pain not relieved by pain medicine ordered * There is increased drainage or redness from any incision * A large amount of rectal bleeding greater than 2-3 tablespoons. (If you had a polyp/s removed or have hemorrhoids, a small amount of blood - from the rectum is to be expected.) * You have any unanswered questions or concerns. IN THE EVENT OF A SERIOUS EMERGENCY, GO TO THE NEAREST EMERGENCY ROOM Your discharge instructions were prepared by provider Luis Antonio Lantigua. Patient Instructions Signature Page Luis Hodge Patient (or Guardian) Signature/Date: I have read and understand the instructions given to me by my caregivers. Caregiver/RN/Doctor Signature/Date: The above-named patient and/or guardian has received patient instructions on this date. + Original Patient Signature Page (only) stays with chart. Please make copy for patient.
[2017-09-06 11:20] VITALS: BP 160/88; PULSE 58; O2SAT 96
--- NOTE | 2017-09-06 11:36 | Anesthesiology Progress Note ---
Anesthesia Post Op Note Date & Time Sep 06, 2017 at 11:36 Vital Signs Pain Intensity: 0 Vital Signs Past 12 Hours Date Time Temp Pulse Resp B/P (MAP) Pulse Ox O2 Delivery O2 Flow Rate FiO2 09/06/17 11:20 58 20 160/88 (112) 96 Room Air 09/06/17 11:12 75 20 132/82 (99) 95 Room Air 09/06/17 10:52 76 20 169/81 (110) 96 Room Air 09/06/17 09:41 36.9 65 20 119/76 (90) 97 Room Air Notes Mental Status: alert / awake / arousable, participated in evaluation Pt Amnestic to Procedure: Yes Nausea / Vomiting: adequately controlled Pain: adequately controlled Airway Patency, RR, SpO2: stable & adequate BP & HR: stable & adequate Hydration State: stable & adequate Anesthetic Complications: no major complications apparent
== END ==
LOC: C.GI 09:18
PROVIDERS: ATTEND Internal Medicine Gastroenterology
DX: K52.9 Noninfective gastroenteritis and colitis, unspecified (principal); J45.909 Unspecified asthma, uncomplicated; J44.9 Chronic obstructive pulmonary disease, unspecified; G47.33 Obstructive sleep apnea (adult) (pediatric); I10 Essential (primary) hypertension; E11.9 Type 2 diabetes mellitus without complications; F32.9 Major depressive disorder, single episode, unspecified; Z68.41 Body mass index [BMI] 40.0-44.9, adult; E66.9 Obesity, unspecified; I25.2 Old myocardial infarction; Z79.899 Other long term (current) drug therapy; Z86.711 Personal history of pulmonary embolism; Z88.5 Allergy status to narcotic agent; Z90.5 Acquired absence of kidney; Z98.890 Other specified postprocedural states; Z88.0 Allergy status to penicillin; Z80.0 Family history of malignant neoplasm of digestive organs

== ENCOUNTER → 2017-12-19 | Day surgery (SDC) | payer OTHER ==
[2017-12-15 09:06] VITALS: BMI 44.0
--- NOTE | 2017-12-15 09:48 | PAT Medication Instructions ---
Service Date Dec 15, 2017. Current Home Medication List Albuterol Hfa (Ventolin Hfa), 2 PUFFS INH QID PRN for Shortness of Breath Albuterol Sulf (Proventil 0.083% 2.5MG/3ML), 2.5 MG INH HS Aspirin (Aspirin Chewable), 81 MG PO QAM Atorvastatin (Lipitor), 10 MG PO QAM Bupropion Hcl (Wellbutrin Xl), 300 MG PO QAM Citalopram Hydrobromide (Celexa), 40 MG PO QAM Hydrochlorothiazide (Hydrochlorothiazide), 1 TAB PO QAM Lisinopril (Zestril), 40 MG PO QAM Montelukast Sodium (Singulair), 10 MG PO QAM Nitroglycerin (Nitrostat), 0.4 MG UT UD PRN for Chest Pain Pantoprazole (Protonix), 40 MG PO BID Potassium Chloride (Micro-K Ext Rel), 10 MEQ PO BID Tamsulosin HCl (Tamsulosin HCl), 1 CAP PO HS Verapamil Hcl (Calan Sr Ext Rel), 180 MG PO QAM Medication Instructions For Your Scheduled Surgery - Check with surgeon and knot tying operator for instructions: Aspirin (Aspirin Chewable), 81 MG PO QAM - Hold the following medications the morning of surgery: Potassium Chloride (Micro-K Ext Rel), 10 MEQ PO BID Lisinopril (Zestril), 40 MG PO QAM Montelukast Sodium (Singulair), 10 MG PO QAM Hydrochlorothiazide (Hydrochlorothiazide), 1 TAB PO QAM - Take the following medications the morning of surgery with a sip of water: Albuterol Hfa (Ventolin Hfa), 2 PUFFS INH QID PRN for Shortness of Breath (if needed) Atorvastatin (Lipitor), 10 MG PO QAM Bupropion Hcl (Wellbutrin Xl), 300 MG PO QAM Citalopram Hydrobromide (Celexa), 40 MG PO QAM Nitroglycerin (Nitrostat), 0.4 MG UT UD PRN for Chest Pain (if needed) Pantoprazole (Protonix), 40 MG PO BID Verapamil Hcl (Calan Sr Ext Rel), 180 MG PO QAM - Take the following medications as scheduled the night before surgery: Tamsulosin HCl (Tamsulosin HCl), 1 CAP PO HS Potassium Chloride (Micro-K Ext Rel), 10 MEQ PO BID Pantoprazole (Protonix), 40 MG PO BID Nitroglycerin (Nitrostat), 0.4 MG UT UD PRN for Chest Pain (if needed) Albuterol Sulf (Proventil 0.083% 2.5MG/3ML), 2.5 MG INH HS Albuterol Hfa (Ventolin Hfa), 2 PUFFS INH QID PRN for Shortness of Breath (if needed). If you have any questions please call us at [phone] or [phone] or [phone]
[~2017-12-19] VITALS: Ht 172.7 cm; Wt 130.5 kg
[~2017-12-19] MED LIST changes: +ACETAMINOPHEN 325 MG TAB PO PRN; +ALBUT/IPRATROP 3MG/0.5MG NEB 3 ML VIAL INH PRN; +ATOR10TA82 PO; -ATOR10TA88 PO; +ATROPINE SULFATE 0.1 MG/ML 5ML SYR IV PRN; +BUPIVACAINE 0.5 % 5 MG/1 ML MPF 30ML VIAL ONE; +CEFAZOLIN 3000MG IV PUSH 15 ML IV SCH; +CHECK SCOPOLAMINE PATCH PLACEMENT SCH; +CLINDAMYCIN IV 900 MG in DEXTROSE 5% 50ML 44 ML IV SCH; +DICY10CA55 PO; +EpHEDrine SULFATE INJ 50 MG/ML AMP IV PRN; +FENTANYL CITRATE INJ 50 MCG/1 ML 2 ML VIAL IV PRN; +FENTANYL CITRATE INJ 50 MCG/1 ML 2 ML VIAL ONE; +FLM4 PO; +HYDROmorphone INJ 1 MG/ML SYR IV PRN; -KETAMINE HCL INJ 50 MG/ML 10 ML VIAL ONE; +LABETALOL HCL IV 5 MG/ML 20ML IV PRN; +LACTATED RINGER'S 1000ML 1,000 ML IV SCH; +LIDOCAINE HCL 1% 20 ML VIAL ONE; -LIDOCAINE HCL 2% 2 ML VIAL (20MG/ML) ONE; +NURSING VERBAL MED ORDER ONE; +ONDANSETRON INJ 2 MG/ML 2 ML VIAL IV PRN; +OXYCODONE/ACETAMINOPHEN 5-325 TAB ONE; +OXYCODONE/ACETAMINOPHEN 5-325 TAB PO PRN; +PHENYLEPHRINE 100MCG/ML 5ML SYR IV PRN; +PROMETHAZINE HCL INJ 12.5 MG in SODIUM CHLORIDE 0.9% 50ML 50 ML IV PRN; -PROPOFOL IV EMULSION 10 MG/ML 20 ML VIAL IV ONE; +SCOPOLAMINE 1.5 MG TDSY TD SCH; -SODIUM CHLORIDE 0.9% 500ML 500 ML IV ONE
[2017-12-19 05:45] VITALS: BP 153/87; PULSE 68; TEMP 36.7; O2SAT 98; Ht 172.7 cm; Wt 130.5 kg
--- NOTE | 2017-12-19 06:52 | History & Physical Bridge Note ---
H&P Re-Evaluation Bridge Note: I have examined the patient, reviewed the History & Physical and in the interval since the performance of the History & Physical I have noted the following changes of clinical significance: No changes noted
--- NOTE | 2017-12-19 07:28 | Discharge Instructions ---
Discharge Instructions Date of Service Dec 19, 2017. Admission Reason for Admission: Right Inguinal Hernia Discharge Discharge Diagnosis / Problem: same Discharge Goals Goal(s): Therapeutic intervention (Nystatin powder for skin infection) Activity Recommendations Activity Limitations: resume your previous activity Lifting Limitations: no more than 10 pounds (up until and after surgery) Shower/Bathe: no limitations Driving or Machine Use: no limitations . Instructions / Follow-Up Instructions / Follow-Up You will be given prescription for Nystatin powder for rash, please use as directed You will need to call surgical office at [phone] to reschedule your surgery once the rash has resolved. No heavy lifting up until and after your surgery to prevent hernia from increasing in size Current Hospital Diet Patient's current hospital diet: Discharge Diet Recommended Diet: Regular Diet Pending Studies Studies pending at discharge: no Medical Emergencies . Who to Call and When: Medical Emergencies: If at any time you feel your situation is an emergency, please call 911 immediately. . Non-Emergent Contact Non-Emergency issues call your: Primary Care Provider, Surgeon Call Non-Emergent contact if: your pain is worsening . "Provider Documentation" section prepared by Bertha Salgado. . VTE Core Measure Inpt VTE Proph given/why not?: Treatment not indicated (surgery case cancelled)
[2017-12-19 07:30] VITALS: BP 144/97; PULSE 60; TEMP 36.8; O2SAT 95
[2017-12-19 08:01] VITALS: BP 137/71; PULSE 60; TEMP 37; O2SAT 95
[2017-12-19 08:35] VITALS: BP 150/91; PULSE 61; TEMP 36.6; O2SAT 96
--- NOTE | 2017-12-19 08:37 | Anesthesiology Progress Note ---
Anesthesia Post Op Note Date & Time Dec 19, 2017 at 08:37 Vital Signs Pain Intensity: 7 Vital Signs Past 12 Hours Date Time Temp Pulse Resp B/P (MAP) Pulse Ox O2 Delivery O2 Flow Rate FiO2 12/19/17 08:01 37 60 18 137/71 95 Room Air 12/19/17 07:30 36.8 60 18 144/97 95 Room Air 12/19/17 05:45 36.7 68 18 153/87 (109) 98 Room Air Notes Mental Status: alert / awake / arousable, participated in evaluation Pt Amnestic to Procedure: Yes Nausea / Vomiting: adequately controlled Pain: adequately controlled Airway Patency, RR, SpO2: stable & adequate BP & HR: stable & adequate Hydration State: stable & adequate Anesthetic Complications: no major complications apparent Pt doing well. Schedule cancelled due to pt having a rash near where the incision will be. VSS.
== END | disposition home or self-care (01) ==
LOC: C.ACU 04:52
PROVIDERS: ATTEND Surgery
DX: K40.90 Unilateral inguinal hernia, without obstruction or gangrene, not specified as recurrent (principal); R21 Rash and other nonspecific skin eruption; Z53.09 Procedure and treatment not carried out because of other contraindication; J45.30 Mild persistent asthma, uncomplicated; J44.9 Chronic obstructive pulmonary disease, unspecified; K21.9 Gastro-esophageal reflux disease without esophagitis; E66.01 Morbid (severe) obesity due to excess calories; Z86.711 Personal history of pulmonary embolism; Z85.528 Personal history of other malignant neoplasm of kidney; Z79.899 Other long term (current) drug therapy

== ENCOUNTER 2017-12-20 18:13 | Emergency (ER) | payer OTHER ==
[~2017-12-20] VITALS: Ht 172.7 cm; Wt 133.5 kg
[~2017-12-20 18:13] MED LIST changes: -ACETAMINOPHEN 325 MG TAB PO PRN; -ALBUT/IPRATROP 3MG/0.5MG NEB 3 ML VIAL INH PRN; -ATROPINE SULFATE 0.1 MG/ML 5ML SYR IV PRN; -BUPIVACAINE 0.5 % 5 MG/1 ML MPF 30ML VIAL ONE; -CEFAZOLIN 3000MG IV PUSH 15 ML IV SCH; -CHECK SCOPOLAMINE PATCH PLACEMENT SCH; -CLINDAMYCIN IV 900 MG in DEXTROSE 5% 50ML 44 ML IV SCH; -DICY10CA55 PO; -EpHEDrine SULFATE INJ 50 MG/ML AMP IV PRN; -FENTANYL CITRATE INJ 50 MCG/1 ML 2 ML VIAL IV PRN; -FENTANYL CITRATE INJ 50 MCG/1 ML 2 ML VIAL ONE; -HYDROmorphone INJ 1 MG/ML SYR IV PRN; -LABETALOL HCL IV 5 MG/ML 20ML IV PRN; -LACTATED RINGER'S 1000ML 1,000 ML IV SCH; -LIDOCAINE HCL 1% 20 ML VIAL ONE; -MIDAZOLAM HCL 1 MG/ML 2ML VIAL ONE; -NURSING VERBAL MED ORDER ONE; -ONDANSETRON INJ 2 MG/ML 2 ML VIAL IV PRN; -OXYCODONE/ACETAMINOPHEN 5-325 TAB ONE; -OXYCODONE/ACETAMINOPHEN 5-325 TAB PO PRN; -PHENYLEPHRINE 100MCG/ML 5ML SYR IV PRN; -PROMETHAZINE HCL INJ 12.5 MG in SODIUM CHLORIDE 0.9% 50ML 50 ML IV PRN; -SCOPOLAMINE 1.5 MG TDSY TD SCH
[2017-12-20 18:18] VITALS: TEMP 36.9; Ht 172.7 cm; Wt 133.5 kg
[2017-12-20] MEDS ORDERED: ACETAMINOPHEN IV 1,000 MG in EMPTY BAG 0 ML IV STA (18:47)
[2017-12-20] MEDS ORDERED: ONDANSETRON INJ 2 MG/ML 2 ML VIAL IV STA (18:47)
[2017-12-20 19:26] LABS: BASO % 0.3 %; BASO ABS # 0.03 K/uL (0-0.2); EOS % 1.5 %; EOS ABS # 0.14 K/uL (0-0.5); HEMOGLOBIN 14.5 g/dL (14.0-18.0); IG# 0.05 K/uL (0.00-0.02); LYMPH % 21.6 %; LYMPH ABS # 1.96 K/uL (1.2-3.4); MEAN CELL VOLUME 88.1 fL (80-100); MEAN CORPUSCULAR HEMOGLOBIN 30.4 pg (25-34); MEAN CORPUSCULAR HGB CONC 34.5 g/dl (32-36); MEAN PLATELET VOLUME 9.2 fL (7.4-10.4); MONO % 8.6 %; MONO ABS # 0.78 K/uL (0.11-0.59); NEUT % 67.4 %; PLATELET COUNT 306 K/uL (130-400); RED CELL DISTRIBUTION WIDTH CV 13.9 % (11.5-14.5); RED CELL DISTRIBUTION WIDTH SD 45.1 fL (36.4-46.3); WHITE BLOOD COUNT 9.06 K/uL (4.8-10.8)
[2017-12-20 19:56] LABS: ALBUMIN 3.5 gm/dl (3.4-5.0); CALCIUM 8.5 mg/dl (8.5-10.1); CREATININE 1.19 mg/dl (0.60-1.40); POTASSIUM 3.5 mmol/L (3.5-5.1)
[2017-12-20 19:59] LABS: TOTAL PROTEIN 7.5 gm/dl (6.4-8.2)
[2017-12-20] MEDS ORDERED: OPTIRAY 320 IV PRN (20:45)
[2017-12-20] MEDS ORDERED: DICYCLOMINE HCL 10 MG CAP PO ONE (20:45)
--- NOTE | 2017-12-20 21:17 | DIAGNOSTIC IMAGING REPORT ---
CT OF THE ABDOMEN AND PELVIS WITH CONTRAST CLINICAL HISTORY: Left mid abdominal pain. COMPARISON STUDY: CT of the abdomen and pelvis August 06, 2016. TECHNIQUE: Following IV administration of 93 mL of Optiray-320, axial images of the abdomen and pelvis were obtained from the lung bases to the proximal femurs. Images were reviewed in the axial, sagittal, and coronal planes. IV contrast was administered without complication. A dose lowering technique was utilized adhering to the principles of ALARA. CT DOSE: 1750.49 mGy.cm FINDINGS: Fatty infiltration of the liver is noted. There is a 4 mm calculus within the upper pole of the right kidney. There is a 2 mm left renal calculus. There are no ureteral calculi and there is no hydronephrosis. There are apparent postsurgical findings within the lower pole of the left kidney. There is moderate to marked left renal atrophy with hypoenhancement of the left kidney. The findings are likely chronic. The left renal artery is diminutive. This is suboptimally assessed on this non-CTA exam. Caliber of the abdominal aorta is normal. The spleen, adrenal glands and pancreas are unremarkable. There is no peripancreatic infiltration. Caliber and wall thickness of small and large bowel are normal. The appendix is normal. There is colonic diverticulosis without evidence for acute diverticulitis. No suspicious osseous lesions are present. There is no lymphadenopathy or ascites. IMPRESSION: 1. No acute process within the abdomen or pelvis. 2. Bilateral nephrolithiasis. No ureteral calculi or hydronephrosis. 3. Moderate to marked left renal atrophy with apparent postsurgical findings within the lower pole of the left kidney which suggest a partial nephrectomy. Heterogeneous enhancement of the left kidney which has slightly progressed since prior exam but is likely chronic. Renal infarct could appear similar although is considered less likely. Electronically signed by: Neto Mcgowan M.D. 12/20/2017 9:16 PM Dictated Date/Time: 12/20/2017 9:05 PM
[2017-12-20] MEDS ORDERED: DiphenhydrAMINE HCL 50 MG/ML VIAL IV STA (21:43)
--- NOTE | 2017-12-20 22:24 | DIAGNOSTIC IMAGING REPORT ---
SCROTAL ULTRASOUND CLINICAL HISTORY: Testicular pain. COMPARISON STUDY: Scrotal ultrasound December 27, 2015. TECHNIQUE: Grayscale and color and duplex Doppler sonography of the scrotum was performed. FINDINGS: The right testis measures 4.7 x 2.4 x 2.9 cm and the left measures 4.2 x 2.5 x 3 cm. Color flow within each testis is symmetric. There is no testicular mass. There is no evidence for epididymitis. IMPRESSION: Unremarkable scrotal ultrasound. Electronically signed by: Neto Mcgowan M.D. 12/20/2017 10:23 PM Dictated Date/Time: 12/20/2017 10:22 PM
[2017-12-20 22:45] VITALS: BP 142/81; PULSE 61; O2SAT 96
--- NOTE | 2017-12-20 23:03 | EMERGENCY ROOM VISIT NOTE ---
History Report prepared by Lazaro: Mary Jane Alvarez Under the Supervision of: Dr. Ana Keen D.O. First contact with patient: 18:33 Chief Complaint: ABDOMINAL PAIN Stated Complaint: L SIDE FLANK AND GROIN PAIN Nursing Triage Summary: Patient ambulatory to triage with a steady and upright gait, states "I am supposed to have a right inguinal hernia repaired on 01/02. I have a rash in my right groin and am using a powder on it. I started having pain in my left lower abdomen today that goes down into my privates. My testicles are hurting. I am peeing but not good. I had left kidney cancer and still have it. They removed a piece of it about 5 years ago. I have an enlarged prostate." History of Present Illness The patient is a 42 year old male who presents to the Emergency Room with complaints of constant left sided abdominal pain starting today. The patient states that it has been worsening as the day has gone on and at its worst, it was a 10/10 in severity. He states that the pain radiates into his back. The patient complains of pain in bilateral testicles. He notes that he has an enlarged prostate and is unsure if this is related to that. The patient notes that he has not had a constant normal flow rate with urination. He states that this is abnormal for him. He notes that he has had diarrhea, chills, nausea, and vomiting yesterday. The patient denies swelling in his testicles, fever, rashes around testicles, sores around testicles, penile drainage, and hematochezia. The patient states that he had cancer in his left kidney with a partial nephrectomy and a hernia on the right side. He states that he was scheduled for surgery yesterday, but was unable to go through with it due to a yeast rash under his stomach. He states that he has been using the powder they gave to him and it has helped decrease the redness. denies feeling bloated worse when lying down Source of History: patient Onset: today Position: abdomen (left sided) Symptom Intensity: 10/10 Quality: other (radiating) Timing: constant, worsening Associated Symptoms: + chills, + nausea, + vomiting, + back pain, + diarrhea , + urinary symptoms, No fevers, No hematochezia Note: The patient complains of bilateral testicle pain. The patient denies swelling in his testicles, rashes around testicles, sores around testicles, and penile drainage. Review of Systems See HPI for pertinent positives & negatives. A total of 10 systems reviewed and were otherwise negative. Past Medical & Surgical Medical Problems: (1) ASTHMA, UNSPECIFIED, W (ACUTE) EXACERBATION (2) Asthma, Unspecified, W (Acute) Exacerbation (3) Asthma, Unspecified, W (Acute) Exacerbation (4) BENIGN HYPERTENSION (5) BODY MASS INDEX 50.0-59.9, ADULT (6) Cancer of kidney (7) Diab Hannah Wo Compl, Type Ii Or Unspec Type, Not Uncntrld (8) GENERALIZED ANXIETY DIS (9) HX-PENICILLIN ALLERGY (10) Hypertension Nos (11) MORBID OBESITY (12) Renal cell carcinoma Family History Diabetes mellitus FH: heart disease Hypertension Social History Smoking Status: Never Smoker Alcohol Use: none Drug Use: none Marital Status: Housing Status: lives with family Occupation Status: employed Current/Historical Medications Scheduled Albuterol Sulf (Proventil 0.083% 2.5MG/3ML), 2.5 MG INH HS Aspirin (Aspirin Chewable), 81 MG PO QAM Atorvastatin (Lipitor), 10 MG PO QAM Bupropion Hcl (Wellbutrin Xl), 300 MG PO QAM Citalopram Hydrobromide (Celexa), 40 MG PO QAM Dicyclomine Hcl (Bentyl), 20 MG PO Q8 Hydrochlorothiazide (Hydrochlorothiazide), 1 TAB PO QAM Lisinopril (Zestril), 40 MG PO QAM Montelukast Sodium (Singulair), 10 MG PO QAM Pantoprazole (Protonix), 40 MG PO BID Potassium Chloride (Micro-K Ext Rel), 10 MEQ PO BID Tamsulosin HCl (Tamsulosin HCl), 1 CAP PO HS Verapamil Hcl (Calan Sr Ext Rel), 180 MG PO QAM Scheduled PRN Albuterol Hfa (Ventolin Hfa), 2 PUFFS INH QID PRN for Shortness of Breath Nitroglycerin (Nitrostat), 0.4 MG UT UD PRN for Chest Pain Allergies Coded Allergies: Ketorolac (Verified Allergy, Intermediate, UPSET STOMACH/ ITCHY, 12/20/17) Penicillins (Verified Allergy, Mild, THROAT SWELLING, 12/20/17) Tramadol (Verified Allergy, Unknown, RASH, UPSET STOMACH, 12/20/17) Oxycodone (Verified Adverse Reaction, Intermediate, UPSET STOMACH/ NO BOWEL MOVEMENT, 12/20/17) Physical Exam Vital Signs Date Time Temp Pulse Resp B/P (MAP) Pulse Ox O2 Delivery O2 Flow Rate FiO2 12/20/17 22:45 61 20 142/81 96 Room Air 12/20/17 21:34 60 20 174/60 95 Room Air 12/20/17 20:18 64 20 139/84 95 Room Air 12/20/17 18:18 36.9 77 20 171/99 96 Room Air Physical Exam GENERAL: alert, well appearing, well nourished, no distress, non-toxic EYE EXAM: normal conjunctiva, PERRL and EOM's grossly intact OROPHARYNX: no exudate, no erythema, lips, buccal mucosa, and tongue normal and mucous membranes are moist, poor dentition. NECK: supple, no nuchal rigidity, no adenopathy, non-tender LUNGS: Clear to auscultation. Normal chest wall mechanics HEART: no murmurs, S1 normal and S2 normal ABDOMEN: Obese abdomen, abdomen soft, non-tender, normo-active bowel sounds, no palpable masses, no palpable hernia, no rebound or guarding. BACK: Back is symmetrical on inspection and there is no deformity, no midline tenderness, no CVA tenderness. : Circumcised, bilateral descended testicles, no palpable mass, no scrotal edema, no inguinal lymphadenopathy, no discharge, no rashes or sores. SKIN: no rashes and no bruising UPPER EXTREMITIES: upper extremities are grossly normal. LOWER EXTREMITIES: No pitting edema. NEURO EXAM: Normal sensorium, cranial nerves II-XII grossly intact, normal speech, no gross weakness of arms, no gross weakness of legs. Medical Decision & Procedures ER Provider Diagnostic Interpretation: Radiology results have been interpreted by the radiologist and reviewed by me. CT OF THE ABDOMEN AND PELVIS WITH CONTRAST CLINICAL HISTORY: Left mid abdominal pain. COMPARISON STUDY: CT of the abdomen and pelvis August 06, 2016. TECHNIQUE: Following IV administration of 93 mL of Optiray-320, axial images of the abdomen and pelvis were obtained from the lung bases to the proximal femurs. Images were reviewed in the axial, sagittal, and coronal planes. IV contrast was administered without complication. A dose lowering technique was utilized adhering to the principles of ALARA. CT DOSE: 1750.49 mGy.cm FINDINGS: Fatty infiltration of the liver is noted. There is a 4 mm calculus within the upper pole of the right kidney. There is a 2 mm left renal calculus. There are no ureteral calculi and there is no hydronephrosis. There are apparent postsurgical findings within the lower pole of the left kidney. There is moderate to marked left renal atrophy with hypoenhancement of the left kidney. The findings are likely chronic. The left renal artery is diminutive. This is suboptimally assessed on this non-CTA exam. Caliber of the abdominal aorta is normal. The spleen, adrenal glands and pancreas are unremarkable. There is no peripancreatic infiltration. Caliber and wall thickness of small and large bowel are normal. The appendix is normal. There is colonic diverticulosis without evidence for acute diverticulitis. No suspicious osseous lesions are present. There is no lymphadenopathy or ascites. IMPRESSION: 1. No acute process within the abdomen or pelvis. 2. Bilateral nephrolithiasis. No ureteral calculi or hydronephrosis. 3. Moderate to marked left renal atrophy with apparent postsurgical findings within the lower pole of the left kidney which suggest a partial nephrectomy. Heterogeneous enhancement of the left kidney which has slightly progressed since prior exam but is likely chronic. Renal infarct could appear similar although is considered less likely. Electronically signed by: Neto Mcgowan M.D. 12/20/2017 9:16 PM Dictated Date/Time: 12/20/2017 9:05 PM SCROTAL ULTRASOUND CLINICAL HISTORY: Testicular pain. COMPARISON STUDY: Scrotal ultrasound December 27, 2015. TECHNIQUE: Grayscale and color and duplex Doppler sonography of the scrotum was performed. FINDINGS: The right testis measures 4.7 x 2.4 x 2.9 cm and the left measures 4.2 x 2.5 x 3 cm. Color flow within each testis is symmetric. There is no testicular mass. There is no evidence for epididymitis. IMPRESSION: Unremarkable scrotal ultrasound. Electronically signed by: Neto Mcgowan M.D. 12/20/2017 10:23 PM Dictated Date/Time: 12/20/2017 10:22 PM Laboratory Results 12/20/17 19:05 Red Blood Count 4.77, Mean Corpuscular Volume 88.1, Mean Corpuscular Hemoglobin 30.4, Mean Corpuscular Hemoglobin Concent 34.5, Mean Platelet Volume 9.2, Neutrophils (%) (Auto) 67.4, Lymphocytes (%) (Auto) 21.6, Monocytes (%) (Auto) 8.6, Eosinophils (%) (Auto) 1.5, Basophils (%) (Auto) 0.3, Neutrophils # (Auto) 6.10, Lymphocytes # (Auto) 1.96, Monocytes # (Auto) 0.78, Eosinophils # (Auto) 0.14, Basophils # (Auto) 0.03 12/20/17 19:05 Test 12/20/17 19:05 12/20/17 19:18 12/20/17 20:15 White Blood Count 9.06 K/uL (4.8-10.8) Red Blood Count 4.77 M/uL (4.7-6.1) Hemoglobin 14.5 g/dL (14.0-18.0) Hematocrit 42.0 % (42-52) Mean Corpuscular Volume 88.1 fL (80-100) Mean Corpuscular Hemoglobin 30.4 pg (25-34) Mean Corpuscular Hemoglobin Concent 34.5 g/dl (32-36) Platelet Count 306 K/uL (130-400) Mean Platelet Volume 9.2 fL (7.4-10.4) Neutrophils (%) (Auto) 67.4 % Lymphocytes (%) (Auto) 21.6 % Monocytes (%) (Auto) 8.6 % Eosinophils (%) (Auto) 1.5 % Basophils (%) (Auto) 0.3 % Neutrophils # (Auto) 6.10 K/uL (1.4-6.5) Lymphocytes # (Auto) 1.96 K/uL (1.2-3.4) Monocytes # (Auto) 0.78 K/uL (0.11-0.59) Eosinophils # (Auto) 0.14 K/uL (0-0.5) Basophils # (Auto) 0.03 K/uL (0-0.2) RDW Standard Deviation 45.1 fL (36.4-46.3) RDW Coefficient of Variation 13.9 % (11.5-14.5) Immature Granulocyte % (Auto) 0.6 % Immature Granulocyte # (Auto) 0.05 K/uL (0.00-0.02) Anion Gap 7.0 mmol/L (3-11) Est Creatinine Clear Calc Drug Dose 105.8 ml/min Estimated GFR () 85.6 Estimated GFR (Non- 73.8 BUN/Creatinine Ratio 14.1 (10-20) Calcium Level 8.5 mg/dl (8.5-10.1) Total Bilirubin 0.3 mg/dl (0.2-1) Aspartate Amino Transf (AST/SGOT) 24 U/L (15-37) Alanine Aminotransferase (ALT/SGPT) 45 U/L (12-78) Alkaline Phosphatase 108 U/L (45-117) Total Protein 7.5 gm/dl (6.4-8.2) Albumin 3.5 gm/dl (3.4-5.0) Globulin 4.0 gm/dl (2.5-4.0) Albumin/Globulin Ratio 0.9 (0.9-2) Lipase 108 U/L (73-393) Bedside Lactic Acid Venous 1.12 mmol/L (0.90-1.70) Urine Color YELLOW Urine Appearance CLEAR (CLEAR) Urine pH 6.5 (4.5-7.5) Urine Specific [place] 1.031 (1.000-1.030) Urine Protein NEG (NEG) Urine Glucose (UA) NEG (NEG) Urine Ketones TRACE (NEG) Urine Occult Blood NEG (NEG) Urine Nitrite NEG (NEG) Urine Bilirubin NEG (NEG) Urine Urobilinogen NEG (NEG) Urine Leukocyte Esterase NEG (NEG) Laboratory results per my review. Medications Administered Medications (Trade) Dose Ordered Sig/[place] Route Start Time Stop Time Status Last Admin Dose Admin Ondansetron HCl (Zofran Inj) 4 mg NOW STAT IV 12/20/17 18:47 12/20/17 18:49 DC 12/20/17 19:11 4 MG Acetaminophen 1000 mg/Empty Bag 100 ml @ 400 mls/hr NOW STAT IV 12/20/17 18:47 12/20/17 19:01 DC 12/20/17 19:09 400 MLS/HR Dicyclomine HCl (Bentyl Cap) 20 mg NOW ONCE PO 12/20/17 20:45 12/20/17 20:46 DC 12/20/17 20:46 20 MG Diphenhydramine HCl (Benadryl Inj) 25 mg NOW STAT IV 12/20/17 21:43 12/20/17 21:44 DC 12/20/17 22:44 25 MG ED Course 1837: The patient was evaluated in room C7. A complete history and physical exam was performed. 1846: Ordered Acetaminophen 1000 mg/ Empty Bag 100 ml @ 400 mls/hr IV, Zofran Inj 4 mg IV. 2031: Nursing staff called and stated that the patient is still in pain. 2044: Ordered Bentyl Cap 20 mg PO. 2137: I reevaluated the patient and he reports that his pain is minimally improved. 2142: Ordered Benadryl Inj 25 mg IV. 2254: Upon reevaluation, the patient is feeling better. I discussed the findings and the treatment plan with the patient. He verbalizes agreement and understanding. The patient was discharged home. Medical Decision The patient is a 42 year old male who presents to the Emergency Room with complaints of constant left sided abdominal pain starting today. Differential diagnosis: Etiologies such as appendicitis, diverticulitis, PUD, biliary pathology, UTI, pancreatitis, obstruction, mesenteric ischemia, aortic pathology, infections, inflammatory bowel disease, renal colic, as well as others were entertained. Medication Reconcilliation Current Medication List: was personally reviewed by me Blood Pressure Screening Patient's blood pressure: Elevated blood pressure Blood pressure disposition: Elevated BP felt to be situational Impression Primary Impression: Abdominal pain Scribe Attestation The scribe's documentation has been prepared under my direction and personally reviewed by me in its entirety. I confirm that the note above accurately reflects all work, treatment, procedures, and medical decision making performed by me. Departure Information Dispostion Home / Self-Care Prescriptions Dicyclomine Hcl (BENTYL) 10 Mg Cap 20 MG PO Q8 for Pain, #20 CAP Prov: Ana Keen, DO 12/20/17 Referrals Mya Galvan D.O. (PCP) Forms Call Back Authorization, HOME CARE DOCUMENTATION FORM, IMPORTANT VISIT INFORMATION Patient Instructions My [facility] Additional Instructions Please continue regular medications as prescribed. You may use the additional pain medication as provided. Please follow up with your family doctor as a precaution. If you develop worsening pain, diarrhea, noticed black or bloody stools, have difficulty urinating, notice a change in the color or odor of your urine, develop fevers or chills, you have any other new or concerning symptoms, please return the emergency room. Problem Qualifiers Primary Impression: Abdominal pain Abdominal location: unspecified location Qualified Codes: R10.9 - Unspecified abdominal pain
[2017-12-20] MEDS ORDERED: DICY10CA55 PO (23:04)
[2017-12-22] MEDS ORDERED: [UNRECOGNIZED DRUG - OTHER] TOP (08:11)
== END 2017-12-20 23:16 | disposition home or self-care (01) ==
LOC: C.EDB 18:15 → C.EDC 23:16
DX: R10.9 Unspecified abdominal pain (principal); J45.909 Unspecified asthma, uncomplicated; I10 Essential (primary) hypertension; Z85.528 Personal history of other malignant neoplasm of kidney; E11.9 Type 2 diabetes mellitus without complications; F41.9 Anxiety disorder, unspecified; E66.01 Morbid (severe) obesity due to excess calories; Z83.3 Family history of diabetes mellitus; Z82.49 Family history of ischemic heart disease and other diseases of the circulatory system; Z79.82 Long term (current) use of aspirin; Z79.899 Other long term (current) drug therapy

== ENCOUNTER 2018-01-02 08:09 | Day surgery (SDC) | payer OTHER ==
[2017-12-22 08:15] VITALS: BMI 43.0
[~2018-01-02] VITALS: Ht 172.7 cm; Wt 129.6 kg
[~2018-01-02 08:09] MED LIST changes: +LACTATED RINGER'S 1000ML 1,000 ML IV SCH; +[UNRECOGNIZED DRUG - OTHER] TOP
[2018-01-02 09:11] VITALS: BP 146/88; PULSE 61; TEMP 36.9; O2SAT 96; Ht 172.7 cm; Wt 129.6 kg
[2018-01-02] MEDS ORDERED: PHENYLEPHRINE 100MCG/ML 5ML SYR IV PRN (09:45)
[2018-01-02] MEDS ORDERED: ONDANSETRON INJ 2 MG/ML 2 ML VIAL IV PRN ×2 (09:45→13:00)
[2018-01-02] MEDS ORDERED: HYDROmorphone INJ 0.5 MG/0.5 ML SYR IV PRN (09:45)
[2018-01-02] MEDS ORDERED: EpHEDrine SULFATE INJ 50 MG/ML AMP IV PRN (09:45)
[2018-01-02] MEDS ORDERED: ATROPINE SULFATE 0.1 MG/ML 5ML SYR IV PRN (09:45)
[2018-01-02] MEDS ORDERED: LABETALOL HCL IV 5 MG/ML 20ML IV PRN (09:45)
[2018-01-02] MEDS ORDERED: PROMETHAZINE HCL INJ 12.5 MG in SODIUM CHLORIDE 0.9% 50ML 50 ML IV PRN (09:45)
[2018-01-02] MEDS ORDERED: NURSING VERBAL MED ORDER ONE ×2 (10:00→16:00)
[2018-01-02] MEDS ORDERED: FENTANYL CITRATE INJ 50 MCG/1 ML 2 ML VIAL ONE (10:14)
[2018-01-02] MEDS ORDERED: LIDOCAINE HCL 1% 20 ML VIAL ONE (10:14)
[2018-01-02] MEDS ORDERED: MIDAZOLAM HCL 1 MG/ML 2ML VIAL ONE (10:14)
--- NOTE | 2018-01-02 10:14 | History and Physical ---
History & Physical Date & Time of Service: Jan 02, 2018 at 10:08 Chief Complaint: Right Inguinal Hernia Primary Care Physician: Mya Galvan D.O. History of Present Illness Source: patient Luis was originally seen in the office for consultation for a right inguinal hernia. They originally had symptoms for a few weeks prior to the initial visit. It started at work. Described as sharp pain. However it was intermittent. He did have a lump seen in the left inguinal region but was easily reduced. He was never unable to reduce. He has no signs of constipation , cough, difficulty urinating, melena, hematochezia, generalized abdominal pain , nausea or vomiting. He was recently scheduled for repair 2 weeks ago but had a yeast infection along the inferior abdominal crease. He used nystatin at that rash has completely resolved. Past Medical/Surgical History Medical Problems: (1) ASTHMA, UNSPECIFIED, W (ACUTE) EXACERBATION Status: Chronic (2) BENIGN HYPERTENSION Status: Chronic (3) BODY MASS INDEX 50.0-59.9, ADULT Status: Chronic (4) Cancer of kidney Status: Chronic (5) GENERALIZED ANXIETY DIS Status: Chronic (6) HX-PENICILLIN ALLERGY Status: Chronic (7) MORBID OBESITY Status: Chronic (8) Renal cell carcinoma Status: Chronic (9) Sleep apnea Family History Diabetes mellitus FH: heart disease Hypertension Social History Smoking Status: Never Smoker Smokeless Tobacco Use: No Drug Use: none Marital Status: Occupational Status: employed Immunizations History of Tetanus Vaccine?: Yes Tetanus Immunization Date: Jul 06, 2013 History of Pneumococcal: Yes Pneumococcal Date: Nov 12, 2013 Multi-Drug Resistant Organisms History of MDRO: No Allergies Coded Allergies: Oxycodone (Verified Allergy, Severe, THROAT SWELLED UP, HARD TIME BREATHING, 01/02/18) GI UPSET, CONSTIPATION Penicillins (Verified Allergy, Severe, THROAT SWELLING, 01/02/18) Ketorolac (Verified Allergy, Intermediate, UPSET STOMACH/ ITCHY, 01/02/18) Tramadol (Verified Allergy, Intermediate, RASH, UPSET STOMACH, 01/02/18) Home Medications Scheduled Aspirin (Aspirin Chewable), 81 MG PO QAM Atorvastatin (Lipitor), 10 MG PO QAM Bupropion Hcl (Wellbutrin Xl), 300 MG PO QAM Citalopram Hydrobromide (Celexa), 40 MG PO QAM Hydrochlorothiazide (Hydrochlorothiazide), 1 TAB PO QAM Lisinopril (Zestril), 40 MG PO QAM Montelukast Sodium (Singulair), 10 MG PO QAM Pantoprazole (Protonix), 40 MG PO BID Potassium Chloride (Micro-K Ext Rel), 10 MEQ PO BID Tamsulosin HCl (Tamsulosin HCl), 1 CAP PO HS Verapamil Hcl (Calan Sr Ext Rel), 180 MG PO QAM [Powder], Unknown Dose TOP TID Scheduled PRN Albuterol Hfa (Ventolin Hfa), 2 PUFFS INH QID PRN for Shortness of Breath Albuterol Sulf (Proventil 0.083% 2.5MG/3ML), 2.5 MG INH HS PRN for PRN Nitroglycerin (Nitrostat), 0.4 MG UT UD PRN for Chest Pain Review of Systems Constitutional: No fever, No chills Respiratory: No cough Cardiovascular: No chest pain Abdomen: + pain (occasional in right inguinal area) Genitourinary - Male: No hematuria, No dysuria Endocrine: No fatigue Integumentary: No rash Physical Exam Vital Signs Date Time Temp Pulse Resp B/P (MAP) Pulse Ox O2 Delivery O2 Flow Rate FiO2 01/02/18 09:11 36.9 61 20 146/88 (107) 96 Room Air General Appearance: no apparent distress, + obese Neck: supple, no adenopathy Respiratory/Chest: lungs clear Cardiovascular: regular rate, rhythm Abdomen/GI: non tender, soft, no organomegaly, + hernia (small right inguinal that is easily reduced) Back: normal inspection Extremities/Musculoskelatal: normal inspection Skin: normal color Impression Assessment and Plan This patient has a right inguinal hernia. We previously discussed the laparoscopic seizure. He understands that it may need to be converted to an open procedure. I again explained the complications to him. He has signed a consent form.
[2018-01-02] MEDS ORDERED: LIDOCAINE HCL 2% 2 ML VIAL (20MG/ML) ONE (10:15)
[2018-01-02] MEDS ORDERED: BUPIVACAINE 0.5 % 5 MG/1 ML MPF 30ML VIAL ONE (10:15)
[2018-01-02] MEDS ORDERED: ROCURONIUM BROMIDE 10 MG/ML 5 ML VIAL IV ONE ×3 (10:15→11:27)
[2018-01-02] MEDS ORDERED: CLINDAMYCIN IV 900 MG in DEXTROSE 5% 50ML 44 ML IV SCH (10:15)
[2018-01-02] MEDS ORDERED: PROPOFOL IV EMULSION 10 MG/ML 20 ML VIAL IV ONE (10:15)
[2018-01-02] MEDS ORDERED: ACETAMINOPHEN 1000 MG/100 ML IV IV ONE (10:18)
[2018-01-02] MEDS ORDERED: EpHEDrine SULFATE INJ 50 MG/ML AMP ONE (11:27)
[2018-01-02] MEDS ORDERED: ONDANSETRON INJ 2 MG/ML 2 ML VIAL ONE (12:41)
[2018-01-02] MEDS ORDERED: NEOSTIGMINE METHYLSULFATE 5 MG/5 ML SYR ONE (12:41)
[2018-01-02] MEDS ORDERED: GLYCOPYRROLATE INJ 0.2 MG/ML VIAL ONE (12:41)
[2018-01-02] MEDS ORDERED: DEXAMETHASONE SOD INJ 4 MG/ML VIAL ONE (12:41)
[2018-01-02] MEDS ORDERED: HYDROCODONE/ACETAMIN 5/325MG TAB PO PRN (13:00)
[2018-01-02] MEDS ORDERED: SODIUM CHLORIDE 0.9% 1000ML 1,000 ML IV SCH (13:00)
--- NOTE | 2018-01-02 13:00 | [facility] Post Operative Brief Note ---
Immediate Operative Summary Operative Date Jan 02, 2018. Pre-Operative Diagnosis Right Inguinal Hernia Post-Operative Diagnosis Right Inguinal Hernia Procedure(s) Performed Laparoscopic Assisted to Open Right Hemicolectomy Surgeon Dr Pitts Formulation Scientist Surgeon(s) Bertha Lloyd PA-C Estimated Blood Loss 5CC Findings Consistent with Post-Op Diagnosis Specimens None per Surgeon Drains None Anesthesia Type General Complication(s) none Disposition Disposition: Recovery Room / PACU
--- NOTE | 2018-01-02 13:08 | Discharge Instructions ---
Discharge Instructions Date of Service Jan 02, 2018. Admission Reason for Admission: Right Inguinal Hernia Discharge Discharge Diagnosis / Problem: Same Discharge Goals Goal(s): Decrease discomfort Activity Recommendations Activity Limitations: per Instructions/Follow-up section Lifting Limitations: no more than 10 pounds (for 6 weeks) Shower/Bathe: tomorrow (shower only) . Instructions / Follow-Up Instructions / Follow-Up ACTIVITY RECOMMENDATIONS: * Walk as much as possible. * No heavy lifting (>10 lbs.) for 2 weeks. SPECIAL CARE INSTRUCTIONS: * Ice to hernia repair site on and off until bedtime tonight. * May shower in 24 hours. Let water run over area and pat dry. * Leave steri strips on for one week. * Call the surgeon's office with any questions or concerns - (ex. temperature higher than 101 degrees F, excessive bleeding or pain). MEDICATIONS: Resume previous medications unless instructed otherwise by your surgeon. * Ibuprofen 600 mg every 6 hours with food * [place] 1 every 4 hours, as needed for pain FOLLOW UP VISIT: If not already scheduled, please call the office to schedule a two week follow- up appointment. Office number Current Hospital Diet Patient's current hospital diet: Discharge Diet Recommended Diet: Diabetes Type 2 Diet Procedures Procedures Performed: Laparoscopic right indirect inguinal hernia repair Pending Studies Studies pending at discharge: no Medical Emergencies . Who to Call and When: Medical Emergencies: If at any time you feel your situation is an emergency, please call 911 immediately. . Non-Emergent Contact Non-Emergency issues call your: Primary Care Provider, Surgeon Call Non-Emergent contact if: your pain is worsening, wound has increased redness, wound has increased pain . "Provider Documentation" section prepared by Raudel Pitts. . VTE Core Measure Inpt VTE Proph given/why not?: Treatment not indicated
[2018-01-02] MEDS: FENTANYL CITRATE INJ 50 MCG/1 ML 2 ML VIAL IV PRN ×3 (13:17→13:27)
[2018-01-02 14:08] VITALS: BP 148/78; PULSE 81; TEMP 36.6; O2SAT 91
--- NOTE | 2018-01-02 14:13 | Anesthesiology Progress Note ---
Anesthesia Post Op Note Date & Time Jan 02, 2018 at 14:01 Vital Signs Pain Intensity: 10 Vital Signs Past 12 Hours Date Time Temp Pulse Resp B/P (MAP) Pulse Ox O2 Delivery O2 Flow Rate FiO2 01/02/18 13:45 80 16 01/02/18 13:45 79 16 154/88 94 01/02/18 13:40 77 17 01/02/18 13:40 78 17 138/74 97 01/02/18 13:35 79 15 01/02/18 13:35 79 15 136/77 99 01/02/18 13:30 74 14 136/69 98 01/02/18 13:30 74 14 01/02/18 13:25 82 16 129/66 99 01/02/18 13:25 81 16 01/02/18 13:20 75 13 01/02/18 13:20 74 13 145/72 98 01/02/18 13:15 81 18 165/84 99 01/02/18 13:15 82 18 01/02/18 13:14 165/94 01/02/18 13:13 165/94 01/02/18 13:10 37.2 81 14 165/94 100 Oxymask 7 01/02/18 09:11 36.9 61 20 146/88 (107) 96 Room Air Notes Mental Status: alert / awake / arousable, participated in evaluation Pt Amnestic to Procedure: Yes Nausea / Vomiting: adequately controlled Pain: adequately controlled Airway Patency, RR, SpO2: stable & adequate BP & HR: stable & adequate Hydration State: stable & adequate Anesthetic Complications: no major complications apparent Pt doing well. VSS. Complaining of chest pain that is no different than his typical chest pain at home. 12 lead EKG ordered and was unchanged from previous EKG except for HR (current EKG: nsr @86). Also c/o sore throat/SOB. Lungs clear to auscultation bilaterally; no wheezes or rhonci noted. O2 sats ranging from 93 -96% on RA. Pt awake and talking, but does not want to open his eyes. Pt with h/ o multiple ED visits for SOB and CP. Discussed with Dr. Pitts about possibly observing pt overnight. Pt had already asked about staying overnight during pre-op. Dr. Pitts will decide. Will continue to monitor pt in phase II PACU for now.
[2018-01-02 14:38] VITALS: BP 134/68; PULSE 78; TEMP 37.3; O2SAT 97
[2018-01-02 15:10] VITALS: BP 139/68; PULSE 88; TEMP 36.5; O2SAT 98
[2018-01-02 15:45] VITALS: BP 140/77; PULSE 98; TEMP 36.7; O2SAT 98
[2018-01-02] MEDS ORDERED: HYDROmorphone INJ 0.5 MG/0.5 ML SYR ONE (15:51)
[2018-01-02] MEDS ORDERED: HYDROmorphone INJ 0.5 MG/0.5 ML SYR IV SCH (16:00)
[2018-01-02 16:40] VITALS: BP 123/76; PULSE 95; TEMP 36.6; O2SAT 95
--- NOTE | 2018-01-02 18:58 | OPERATIVE REPORT ---
DATE OF OPERATION: 01/02/2018 PREOPERATIVE DIAGNOSIS: Right inguinal hernia. POSTOPERATIVE DIAGNOSIS: Right indirect inguinal hernia. PROCEDURE: Laparoscopic repair of right indirect inguinal hernia. SURGEON: Dr. Pitts. MANAGER PORT: Bertha Lloyd PA-C. FINDINGS: The patient had a small indirect inguinal hernia. 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 There was no direct component. The peritoneum was flimsy. Cord structures appeared normal. TECHNIQUE: The patient was given a general anesthetic and the area was prepped and draped in the usual sterile fashion. A small incision was made 3-4 cm above the umbilicus, carried down through the subcutaneous tissue to the fascia which was grasped with 2 Felecia clamps and incised between. The peritoneum was identified, incised, and the introducer was placed bluntly. The abdomen was then insufflated to a pressure of 15 mmHg with carbon dioxide. The left side a 5 mm introducer and the right-sided 11 mm introducers were placed under direct vision through small skin incisions. The patient was placed in Trendelenburg airplane left position. The peritoneum was opened beginning at the medial umbilical ligament and working laterally anterior to the internal ring. Dissection was then carried out from anterior to posterior, first on the lateral side. I had to extend the peritoneal incision laterally and continued that lateral anterior to posterior dissection. I then performed a similar dissection on the medial side working anterior to posterior until I got back to where I could identify the pubic tubercle. I then worked near the cord structures. The epigastric vessels were easily identified. It required some meticulous dissection, dissecting the cord structures away. At one point the lipoma of the cord was identified and this was reduced from the internal ring with ease. The flimsy attachments were divided using blunt dissection. Further dissection was carried out working anterior to posterior. The peritoneum was rather flimsy and I had to carefully dissect the structures away from the preperitoneal area. Further dissection was then carried out on the anterior abdominal wall creating the superior flap of the peritoneum. A piece of large preformed right inguinal hernia mesh was then placed. I had to perform some more posterior dissection in order to get the mesh to lie flat, but that was accomplished. The mesh was tacked anteriorly to the anterior abdominal wall. I could feel the Tacker prior to placing each of the tacks. The old mesh was lying nicely. I then had to close the peritoneum using the stapling device as well. That was more difficult, especially posteriorly where there had been some tears from the flimsy peritoneum, but this was able to be completely accomplished with care. The gas was allowed to escape and the introducers were removed. The fascia of the midline introducer was closed with interrupted 0 Vicryl and the skin of all the incisions was closed with 4-0 Monocryl in either an interrupted or running subcuticular fashion. The estimated blood loss was 5 mL. Sponge, needle and instrument counts were correct x2 prior to closure. The patient tolerated surgical procedure without complication and was transferred to recovery. I attest to the content of the Intraoperative Record and any orders documented therein. Any exception s are noted below.
== END 2018-01-02 17:03 | disposition home or self-care (01) ==
LOC: C.ACU 08:09
PROVIDERS: ATTEND Surgery
DX: K40.90 Unilateral inguinal hernia, without obstruction or gangrene, not specified as recurrent (principal); J45.909 Unspecified asthma, uncomplicated; I10 Essential (primary) hypertension; F41.1 Generalized anxiety disorder; G47.30 Sleep apnea, unspecified; E66.01 Morbid (severe) obesity due to excess calories; Z68.43 Body mass index [BMI] 50.0-59.9, adult; Z85.528 Personal history of other malignant neoplasm of kidney; Z83.3 Family history of diabetes mellitus; Z82.49 Family history of ischemic heart disease and other diseases of the circulatory system; Z88.5 Allergy status to narcotic agent; Z88.0 Allergy status to penicillin; Z88.8 Allergy status to other drugs, medicaments and biological substances; Z79.82 Long term (current) use of aspirin; Z79.899 Other long term (current) drug therapy

== ENCOUNTER 2018-01-05 19:41 | Emergency (ER) | payer OTHER ==
[~2018-01-05] VITALS: Ht 167.6 cm; Wt 131.9 kg
[~2018-01-05 19:41] MED LIST changes: -LACTATED RINGER'S 1000ML 1,000 ML IV SCH
[2018-01-05 19:47] VITALS: TEMP 36.7; Ht 167.6 cm; Wt 131.9 kg
--- NOTE | 2018-01-05 20:45 | EMERGENCY ROOM VISIT NOTE ---
History First contact with patient: 19:52 Chief Complaint: LEG PAIN,LEG INJURY Stated Complaint: LEG PAIN,L SIDE AND R GROIN History of Present Illness The patient is a 42 year old male who presents to the Emergency Room with complaints of lower abdominal pain that radiates to his upper legs bilaterally that has progressively worsened since his laparoscopic hernia repair, done [address] Pitts's office called the pt today to check on him, and he complained of this pain to them, and stated he last took a pain pill last night , but denies taking them q4hrs as directed. Says he doesn't want to take a pain pill because it makes him sleepy. Reports a history of pulmonary embolism and so just "wanted to be sure everything was ok". Denies SOB, chest pain, or hemoptysis although does have chronic asthma. Has been ambulating as directed by surgeon. Has been eating and drinking with no issues. is at bedside. Review of Systems See HPI for pertinent positives and negatives. Past Medical/Surgical History Medical Problems: (1) ASTHMA, UNSPECIFIED, W (ACUTE) EXACERBATION (2) Asthma, Unspecified, W (Acute) Exacerbation (3) Asthma, Unspecified, W (Acute) Exacerbation (4) BENIGN HYPERTENSION (5) BODY MASS INDEX 50.0-59.9, ADULT (6) Cancer of kidney (7) Diab Hannah Wo Compl, Type Ii Or Unspec Type, Not Uncntrld (8) GENERALIZED ANXIETY DIS (9) HX-PENICILLIN ALLERGY (10) Hypertension Nos (11) MORBID OBESITY (12) Renal cell carcinoma Family History Diabetes mellitus FH: heart disease Hypertension Social History Smoking Status: Never Smoker Alcohol Use: none Drug Use: none Marital Status: Housing Status: lives with family Occupation Status: employed Current/Historical Medications Scheduled Aspirin (Aspirin Chewable), 81 MG PO QAM Atorvastatin (Lipitor), 10 MG PO QAM Bupropion Hcl (Wellbutrin Xl), 300 MG PO QAM Citalopram Hydrobromide (Celexa), 40 MG PO QAM Hydrochlorothiazide (Hydrochlorothiazide), 50 MG PO QAM Lisinopril (Zestril), 40 MG PO QAM Montelukast Sodium (Singulair), 10 MG PO QAM Pantoprazole (Protonix), 40 MG PO BID Potassium Chloride (Micro-K Ext Rel), 10 MEQ PO BID Tamsulosin HCl (Tamsulosin HCl), 1 CAP PO HS Verapamil Hcl (Calan Sr Ext Rel), 180 MG PO QAM Scheduled PRN Albuterol Hfa (Ventolin Hfa), 2 PUFFS INH QID PRN for Shortness of Breath Albuterol Sulf (Proventil 0.083% 2.5MG/3ML), 2.5 MG INH HS PRN for PRN Hydrocodone/Acetaminophen 7.5MG/325MG (Fox 7.5MG/325MG), Unknown Dose PO Q4H PRN for Pain Nitroglycerin (Nitrostat), 0.4 MG UT UD PRN for Chest Pain Physical Exam Vital Signs Date Time Temp Pulse Resp B/P (MAP) Pulse Ox O2 Delivery O2 Flow Rate FiO2 01/05/18 23:04 70 18 134/73 95 Room Air 01/05/18 21:54 64 20 147/80 95 Room Air 01/05/18 19:47 36.7 88 24 161/91 96 Room Air Physical Exam GENERAL: Awake, alert, well-appearing, in no distress. Obese. HENT: Normocephalic, atraumatic. EYES: Normal conjunctiva. Sclera non-icteric. RESPIRATORY: Clear to auscultation. CARDIAC: Regular rate, normal rhythm. Extremities warm and well perfused. Pulses equal. ABDOMEN: Soft, non-distended. Tenderness to palpation over surgical incision points - in tact, steri strips present. No rebound or guarding. No masses. GENITOURINARY: Examined groin area - non tender, pinpoint dark purple spots on testicles bilaterally, non distended, equal in size. Penis normal in appearance , nondraining. RECTAL: Deferred. MUSCULOSKELETAL: Chest examination reveals no tenderness. The back is symmetrical on inspection without obvious abnormality. No joint edema. LOWER EXTREMITIES: Calves are equal size bilaterally and ++ moderately tender bilaterally. No edema. No discoloration. SKIN: No rash or jaundice noted. Medical Decision & Procedures Laboratory Results 01/05/18 20:30 Red Blood Count 4.85, Mean Corpuscular Volume 89.3, Mean Corpuscular Hemoglobin 30.5, Mean Corpuscular Hemoglobin Concent 34.2, Mean Platelet Volume 9.5, Neutrophils (%) (Auto) 69.0, Lymphocytes (%) (Auto) 16.9, Monocytes (%) (Auto) 11.5, Eosinophils (%) (Auto) 1.3, Basophils (%) (Auto) 0.3, Neutrophils # (Auto ) 6.51, Lymphocytes # (Auto) 1.59, Monocytes # (Auto) 1.08, Eosinophils # (Auto ) 0.12, Basophils # (Auto) 0.03 01/05/18 20:30 Test 01/05/18 20:20 01/05/18 20:30 Urine Color YELLOW Urine Appearance CLEAR (CLEAR) Urine pH 7.5 (4.5-7.5) Urine Specific [place] 1.017 (1.000-1.030) Urine Protein NEG (NEG) Urine Glucose (UA) NEG (NEG) Urine Ketones NEG (NEG) Urine Occult Blood NEG (NEG) Urine Nitrite NEG (NEG) Urine Bilirubin NEG (NEG) Urine Urobilinogen NEG (NEG) Urine Leukocyte Esterase NEG (NEG) Urine WBC (Auto) 0 /hpf (0-5) Urine RBC (Auto) 0-4 /hpf (0-4) Urine Hyaline Casts (Auto) 0 /lpf (0-5) Urine Epithelial Cells (Auto) 10-20 /lpf (0-5) Urine Bacteria (Auto) NEG (NEG) White Blood Count 9.42 K/uL (4.8-10.8) Red Blood Count 4.85 M/uL (4.7-6.1) Hemoglobin 14.8 g/dL (14.0-18.0) Hematocrit 43.3 % (42-52) Mean Corpuscular Volume 89.3 fL (80-100) Mean Corpuscular Hemoglobin 30.5 pg (25-34) Mean Corpuscular Hemoglobin Concent 34.2 g/dl (32-36) Platelet Count 302 K/uL (130-400) Mean Platelet Volume 9.5 fL (7.4-10.4) Neutrophils (%) (Auto) 69.0 % Lymphocytes (%) (Auto) 16.9 % Monocytes (%) (Auto) 11.5 % Eosinophils (%) (Auto) 1.3 % Basophils (%) (Auto) 0.3 % Neutrophils # (Auto) 6.51 K/uL (1.4-6.5) Lymphocytes # (Auto) 1.59 K/uL (1.2-3.4) Monocytes # (Auto) 1.08 K/uL (0.11-0.59) Eosinophils # (Auto) 0.12 K/uL (0-0.5) Basophils # (Auto) 0.03 K/uL (0-0.2) RDW Standard Deviation 46.5 fL (36.4-46.3) RDW Coefficient of Variation 14.2 % (11.5-14.5) Immature Granulocyte % (Auto) 1.0 % Immature Granulocyte # (Auto) 0.09 K/uL (0.00-0.02) Anion Gap 4.0 mmol/L (3-11) Est Creatinine Clear Calc Drug Dose 95.6 ml/min Estimated GFR () 79.1 Estimated GFR (Non- 68.3 BUN/Creatinine Ratio 12.4 (10-20) Calcium Level 8.6 mg/dl (8.5-10.1) Total Bilirubin 0.4 mg/dl (0.2-1) Aspartate Amino Transf (AST/SGOT) 23 U/L (15-37) Alanine Aminotransferase (ALT/SGPT) 43 U/L (12-78) Alkaline Phosphatase 94 U/L (45-117) Total Protein 7.6 gm/dl (6.4-8.2) Albumin 3.3 gm/dl (3.4-5.0) Globulin 4.3 gm/dl (2.5-4.0) Albumin/Globulin Ratio 0.8 (0.9-2) Medications Administered Medications (Trade) Dose Ordered Sig/Edouard Route Start Time Stop Time Status Last Admin Dose Admin Fentanyl Citrate (Fentanyl Inj) 100 mcg NOW ONCE IV 01/05/18 21:30 01/05/18 21:33 DC 01/05/18 21:54 100 MCG Ondansetron HCl (Zofran Inj) 4 mg NOW STAT IV 01/05/18 21:50 01/05/18 21:51 DC 01/05/18 21:53 4 MG Acetaminophen/ Hydrocodone Bitart (Fox 7.5/325 Tab) 1 tab NOW STAT PO 01/05/18 22:54 01/05/18 22:55 DC 01/05/18 23:04 1 TAB Procedure [~ rep ct add3]] (TESTICULAR) SCROTUM-CONT CLINICAL HISTORY: 42 years-old Male presenting with testicular pain, mid testicular pain after right inguinal hernia repair. TECHNIQUE: Real-time grayscale and color and spectral Doppler ultrasound imaging of the scrotum was performed. COMPARISON: 12/20/2017. FINDINGS: Right testis: Normal echogenicity and echotexture. Testis measures 5.1 x 2.3 x 2.9 cm. Normal color Doppler flow and arterial and venous waveforms in the testicular parenchyma. Epididymal head normal. Trace hydrocele aerated No varicocele. Left testis: Normal echogenicity and echotexture. Testis measures 4.0 x 2.1 x 2.8 cm. Normal color Doppler flow and arterial and venous waveforms in the testicular parenchyma. Epididymal head normal. Trace hydrocele. Varicocele present. Symmetric perfusion of the testes. IMPRESSION: 1. Trace hydroceles. 2. Left varicocele. 3. No evidence of testicular torsion. Electronically signed by: Grayson Bledsoe M.D. 01/05/2018 10:30 PM Dictated Date/Time: 01/05/2018 10:29 PM ED Course 2000 seen and assessed pt 2030 ordered labs - cbc, cmp, ua, testicular ultrasound 2200 labs unremarkable. 2219 US done - shows as above - unremarkable. 2300 D/w pt normal lab findings, on repeat exam, abdomen is soft, mildly tender. D/w pt the need to call surgeon's office tomorrow morning and discuss visit here today. Discussed need to take pain medication as prescribed, continue ambulating and hydrating. Return if sx's become worse. Given one Fox here . Medical Decision The patient is a 42 year old male who presents to the Emergency Room with complaints of lower abdominal pain that radiates to his upper legs bilaterally that has progressively worsened since his laparoscopic hernia repair, done [address] Pitts's office called the pt today to check on him, and he complained of this pain to them, and stated he last took a pain pill last night , but denies taking them q4hrs as directed. Says he doesn't want to take a pain pill because it makes him sleepy. Reports a history of pulmonary embolism and so just "wanted to be sure everything was ok". Denies SOB, chest pain, or hemoptysis although does have chronic asthma. Has been ambulating as directed by surgeon. Has been eating and drinking with no issues. is at bedside. Ddx: post op pain, infection, cellulitis, testicular torsion Surgical incision sites post laparoscopic hernia repair are in tact and non draining. Labs are unremarkable and ultrasound of testicles show trace hydroceles, left varicocele, no evidence of testicular torsion. Likely noncontributory to his abdominal pain. Pt feeling better [id number] mcg Fentanyl, and also ordered Fox 7/325 to be given here in ED. Told pt to discuss with surgeon's office his visit here today first thing tomorrow morning. Pt stable for discharge. Impression Primary Impression: Postoperative abdominal pain Departure Information Dispostion Home / Self-Care Condition GOOD [facility] Instructions [facility] Additional Instructions You were seen in the ED due to pain in your abdomen and upper legs and groin area. Your blood work came back normal, as did the ultrasound of your testicles. Be sure to call Dr. Pitts's office tomorrow morning and let them know of your visit here, and ask to be seen. Please continue as per your surgeon's instructions - continue walking, hydrating well, and taking pain medication as prescribed. If you don't desire to take the pain medication prescribed by your surgeon, tylenol is also a good alternative. Do NOT exceed the maximum daily dose as indicated on the bottle. Remember each Fox pill contains 325 mg of Tylenol which counts against your maximum daily dose of tylenol. Return if your symptoms become worse, or if you begin to have trouble breathing or chest pain. Resident Tracking Resident Involvement: Resident Care Provided Care Provided: Adult ED
--- NOTE | 2018-01-05 21:19 | EMERGENCY ROOM VISIT NOTE ---
History Report prepared by Lazaro: Corwin Johnson Under the Supervision of: Dr. Carlos Dominique M.D. First contact with patient: 19:52 Chief Complaint: LEG PAIN,LEG INJURY Stated Complaint: LEG PAIN,L SIDE AND R GROIN History of Present Illness The patient is a 42 year old male who presents to the Emergency Room with complaints of worsening lower abdominal pain that radiates into his bilateral legs for the past three days after having a hernia repair. He currently rates his discomfort as a 9/10 in severity. He additionally states that he is having some testicular pain, and he was having some burning with urination two days ago. The patient state that he has been eating and drinking fine, and he has not taken very many pain medications. He denies any fevers, chills, congestion, shortness of breath, chest pain, and coughing up blood. The patient reports that he called his surgeon, and they told him to come to the ED for evaluation if the pain got worse. He has a history of PEs. The patient states that he has been eating, drinking, urinating, and walking fine. Source of History: patient Onset: three days ago Position: abdomen Symptom Intensity: 9/10 Timing: worsening Associated Symptoms: No fevers, No chills, No chest pain, No SOB Note: Associated symptoms: Testicular pain and burning with urination Review of Systems See HPI for pertinent positives and negatives. A total of ten systems were reviewed and were otherwise negative. Past Medical & Surgical Medical Problems: (1) ASTHMA, UNSPECIFIED, W (ACUTE) EXACERBATION (2) Asthma, Unspecified, W (Acute) Exacerbation (3) Asthma, Unspecified, W (Acute) Exacerbation (4) BENIGN HYPERTENSION (5) BODY MASS INDEX 50.0-59.9, ADULT (6) Cancer of kidney (7) Diab Hannah Wo Compl, Type Ii Or Unspec Type, Not Uncntrld (8) GENERALIZED ANXIETY DIS (9) HX-PENICILLIN ALLERGY (10) Hypertension Nos (11) MORBID OBESITY (12) Renal cell carcinoma Family History Diabetes mellitus FH: heart disease Hypertension Social History Smoking Status: Never Smoker Alcohol Use: none Drug Use: none Marital Status: Housing Status: lives with family Occupation Status: employed Current/Historical Medications Scheduled Aspirin (Aspirin Chewable), 81 MG PO QAM Atorvastatin (Lipitor), 10 MG PO QAM Bupropion Hcl (Wellbutrin Xl), 300 MG PO QAM Citalopram Hydrobromide (Celexa), 40 MG PO QAM Hydrochlorothiazide (Hydrochlorothiazide), 50 MG PO QAM Lisinopril (Zestril), 40 MG PO QAM Montelukast Sodium (Singulair), 10 MG PO QAM Pantoprazole (Protonix), 40 MG PO BID Potassium Chloride (Micro-K Ext Rel), 10 MEQ PO BID Tamsulosin HCl (Tamsulosin HCl), 1 CAP PO HS Verapamil Hcl (Calan Sr Ext Rel), 180 MG PO QAM Scheduled PRN Albuterol Hfa (Ventolin Hfa), 2 PUFFS INH QID PRN for Shortness of Breath Albuterol Sulf (Proventil 0.083% 2.5MG/3ML), 2.5 MG INH HS PRN for PRN Hydrocodone/Acetaminophen 7.5MG/325MG ([place] 7.5MG/325MG), Unknown Dose PO Q4H PRN for Pain Nitroglycerin (Nitrostat), 0.4 MG UT UD PRN for Chest Pain Allergies Coded Allergies: Oxycodone (Verified Allergy, Severe, THROAT SWELLED UP, HARD TIME BREATHING, 01/05/18) GI UPSET, CONSTIPATION Penicillins (Verified Allergy, Severe, THROAT SWELLING, 01/05/18) Ketorolac (Verified Allergy, Intermediate, UPSET STOMACH/ ITCHY, 01/05/18) Tramadol (Verified Allergy, Intermediate, RASH, UPSET STOMACH, 01/05/18) Physical Exam Vital Signs Date Time Temp Pulse Resp B/P (MAP) Pulse Ox O2 Delivery O2 Flow Rate FiO2 01/05/18 23:04 70 18 134/73 95 Room Air 01/05/18 21:54 64 20 147/80 95 Room Air 01/05/18 19:47 36.7 88 24 161/91 96 Room Air Physical Exam GENERAL: No distress HENT: Normocephalic, atraumatic. Dry mucous membranes Oropharynx unremarkable. EYES: Normal conjunctiva. Sclera non-icteric. NECK: Supple. No nuchal rigidity. FROM. No JVD. RESPIRATORY: Clear to auscultation. CARDIAC: Regular rate, normal rhythm. Extremities warm and well perfused. Pulses equal. ABDOMEN: Mild lower abdominal tenderness. No peritoneal signs. Soft, non- distended. No rebound or guarding. No masses. RECTAL: Deferred. : Mild right testicular and epididymal tenderness. No edema, erythema, or crepitus. Cremasteric reflex intact. MUSCULOSKELETAL: Chest examination reveals no tenderness. The back is symmetrical on inspection without obvious abnormality. There is no CVA tenderness to palpation. No joint edema. LOWER EXTREMITIES: Calves are equal size bilaterally and non-tender. No edema. No discoloration. NEURO: Normal sensorium. No sensory or motor deficits noted. SKIN: No rash or jaundice noted. Medical Decision & Procedures ER Provider Diagnostic Interpretation: Radiology results as stated below per my review and radiologist interpretation: (TESTICULAR) SCROTUM-CONT CLINICAL HISTORY: 42 years-old Male presenting with testicular pain, mid testicular pain after right inguinal hernia repair. TECHNIQUE: Real-time grayscale and color and spectral Doppler ultrasound imaging of the scrotum was performed. COMPARISON: 12/20/2017. FINDINGS: Right testis: Normal echogenicity and echotexture. Testis measures 5.1 x 2.3 x 2.9 cm. Normal color Doppler flow and arterial and venous waveforms in the testicular parenchyma. Epididymal head normal. Trace hydrocele aerated No varicocele. Left testis: Normal echogenicity and echotexture. Testis measures 4.0 x 2.1 x 2.8 cm. Normal color Doppler flow and arterial and venous waveforms in the testicular parenchyma. Epididymal head normal. Trace hydrocele. Varicocele present. Symmetric perfusion of the testes. IMPRESSION: 1. Trace hydroceles. 2. Left varicocele. 3. No evidence of testicular torsion. Electronically signed by: Grayson Bledsoe M.D. 01/05/2018 10:30 PM Dictated Date/Time: 01/05/2018 10:29 PM Laboratory Results 01/05/18 20:30 Red Blood Count 4.85, Mean Corpuscular Volume 89.3, Mean Corpuscular Hemoglobin 30.5, Mean Corpuscular Hemoglobin Concent 34.2, Mean Platelet Volume 9.5, Neutrophils (%) (Auto) 69.0, Lymphocytes (%) (Auto) 16.9, Monocytes (%) (Auto) 11.5, Eosinophils (%) (Auto) 1.3, Basophils (%) (Auto) 0.3, Neutrophils # (Auto ) 6.51, Lymphocytes # (Auto) 1.59, Monocytes # (Auto) 1.08, Eosinophils # (Auto ) 0.12, Basophils # (Auto) 0.03 01/05/18 20:30 Test 01/05/18 20:20 01/05/18 20:30 Urine Color YELLOW Urine Appearance CLEAR (CLEAR) Urine pH 7.5 (4.5-7.5) Urine Specific [place] 1.017 (1.000-1.030) Urine Protein NEG (NEG) Urine Glucose (UA) NEG (NEG) Urine Ketones NEG (NEG) Urine Occult Blood NEG (NEG) Urine Nitrite NEG (NEG) Urine Bilirubin NEG (NEG) Urine Urobilinogen NEG (NEG) Urine Leukocyte Esterase NEG (NEG) Urine WBC (Auto) 0 /hpf (0-5) Urine RBC (Auto) 0-4 /hpf (0-4) Urine Hyaline Casts (Auto) 0 /lpf (0-5) Urine Epithelial Cells (Auto) 10-20 /lpf (0-5) Urine Bacteria (Auto) NEG (NEG) White Blood Count 9.42 K/uL (4.8-10.8) Red Blood Count 4.85 M/uL (4.7-6.1) Hemoglobin 14.8 g/dL (14.0-18.0) Hematocrit 43.3 % (42-52) Mean Corpuscular Volume 89.3 fL (80-100) Mean Corpuscular Hemoglobin 30.5 pg (25-34) Mean Corpuscular Hemoglobin Concent 34.2 g/dl (32-36) Platelet Count 302 K/uL (130-400) Mean Platelet Volume 9.5 fL (7.4-10.4) Neutrophils (%) (Auto) 69.0 % Lymphocytes (%) (Auto) 16.9 % Monocytes (%) (Auto) 11.5 % Eosinophils (%) (Auto) 1.3 % Basophils (%) (Auto) 0.3 % Neutrophils # (Auto) 6.51 K/uL (1.4-6.5) Lymphocytes # (Auto) 1.59 K/uL (1.2-3.4) Monocytes # (Auto) 1.08 K/uL (0.11-0.59) Eosinophils # (Auto) 0.12 K/uL (0-0.5) Basophils # (Auto) 0.03 K/uL (0-0.2) RDW Standard Deviation 46.5 fL (36.4-46.3) RDW Coefficient of Variation 14.2 % (11.5-14.5) Immature Granulocyte % (Auto) 1.0 % Immature Granulocyte # (Auto) 0.09 K/uL (0.00-0.02) Anion Gap 4.0 mmol/L (3-11) Est Creatinine Clear Calc Drug Dose 95.6 ml/min Estimated GFR () 79.1 Estimated GFR (Non- 68.3 BUN/Creatinine Ratio 12.4 (10-20) Calcium Level 8.6 mg/dl (8.5-10.1) Total Bilirubin 0.4 mg/dl (0.2-1) Aspartate Amino Transf (AST/SGOT) 23 U/L (15-37) Alanine Aminotransferase (ALT/SGPT) 43 U/L (12-78) Alkaline Phosphatase 94 U/L (45-117) Total Protein 7.6 gm/dl (6.4-8.2) Albumin 3.3 gm/dl (3.4-5.0) Globulin 4.3 gm/dl (2.5-4.0) Albumin/Globulin Ratio 0.8 (0.9-2) Laboratory results reviewed by me Medications Administered Medications (Trade) Dose Ordered Sig/Edouard Route Start Time Stop Time Status Last Admin Dose Admin Fentanyl Citrate (Fentanyl Inj) 100 mcg NOW ONCE IV 01/05/18 21:30 01/05/18 21:33 DC 01/05/18 21:54 100 MCG Ondansetron HCl (Zofran Inj) 4 mg NOW STAT IV 01/05/18 21:50 01/05/18 21:51 DC 01/05/18 21:53 4 MG Acetaminophen/ Hydrocodone Bitart ([place] 7.5/325 Tab) 1 tab NOW STAT PO 01/05/18 22:54 01/05/18 22:55 DC 01/05/18 23:04 1 TAB ED Course 1951: The patient was evaluated in room B3. A complete history and physical exam was performed. 2303: The patient was reevaluated. Discussed results and discharge instructions : He verbalized understanding and agreement. The patient is ready for discharge. Medical Decision I reviewed the patient's past medical history, medications, and the nursing notes as described above. Differential diagnosis: Etiologies such as appendicitis, diverticulitis, PUD, biliary pathology, UTI, pancreatitis, surgical complication, epididymitis, orchitis, testicular torsion , obstruction, mesenteric ischemia, aortic pathology, infections, inflammatory bowel disease, renal colic, as well as others were entertained. The patient is a 42-year-old gentleman with a past medical history of a recent laparoscopic repair of right indirect inguinal hernia on January [address] Pitts presents emergency Department with persistent lower abdominal and right groin testicular pain per hpi. Of note the patient's symptoms occur in the setting of not taking any postoperative pain medication. Patient also reports burning with urination. On arrival the patient is in NAD, AFVSS. On exam the patient has mild lower abdominal tenderness and right inguinal and testicular and epididymal tenderness that could be consistent with the patient' s postop status in the setting of no analgesia. Testicles are without erythema , edema or crepitus. Cremasteric reflexes intact. No lower extremity edema or ttp. Labs unremarkable including WBC within normal limits. UA negative for infection. Testicular ultrasound negative for acute findings. Since dysuria is possibly related to his operative crow catheter which should resolve over time. Otherwise given reassuring workup and improvement in patient's pain with analgesia no indication for further imaging at this time. The patient will contact a surgeon tomorrow for reevaluation. Findings and plan for follow-up reviewed with patient. Patient agreeable and d/c'd per discharge instructions. I discussed the case with the resident physician, examined the patient, and agree with the findings and plan as documented in the residents note unless otherwise clarified here by me. Medication Reconcilliation Current Medication List: was personally reviewed by me Blood Pressure Screening Patient's blood pressure: Elevated blood pressure Blood pressure disposition: Elevated BP felt to be situational Impression Primary Impression: Postoperative abdominal pain Scribe Attestation The scribe's documentation has been prepared under my direction and personally reviewed by me in its entirety. I confirm that the note above accurately reflects all work, treatment, procedures, and medical decision making performed by me. Departure Information Dispostion Home / Self-Care Referrals Mya Galvan D.O. (PCP) Forms HOME CARE DOCUMENTATION FORM, IMPORTANT VISIT INFORMATION Patient Instructions [facility] Additional Instructions You were seen in the ED due to pain in your abdomen and upper legs and groin area. Your blood work came back normal, as did the ultrasound of your testicles. Be sure to call Dr. Pitts's office tomorrow morning and let them know of your visit here, and ask to be seen. Please continue as per your surgeon's instructions - continue walking, hydrating well, and taking pain medication as prescribed. If you don't desire to take the pain medication prescribed by your surgeon, tylenol is also a good alternative. Do NOT exceed the maximum daily dose as indicated on the bottle. Remember each [place] pill contains 325 mg of Tylenol which counts against your maximum daily dose of tylenol. Return if your symptoms become worse, or if you begin to have trouble breathing or chest pain.
[2018-01-05] MEDS ORDERED: HYDR-3983 PO (21:22)
[2018-01-05] MEDS ORDERED: FENTANYL CITRATE INJ 50 MCG/1 ML 2 ML VIAL IV ONE (21:30)
[2018-01-05 21:42] LABS: BASO % 0.3 %; BASO ABS # 0.03 K/uL (0-0.2); EOS % 1.3 %; EOS ABS # 0.12 K/uL (0-0.5); HEMATOCRIT 43.3 % (42-52); HEMOGLOBIN 14.8 g/dL (14.0-18.0); IG# 0.09 K/uL (0.00-0.02); LYMPH % 16.9 %; LYMPH ABS # 1.59 K/uL (1.2-3.4); MEAN CELL VOLUME 89.3 fL (80-100); MEAN CORPUSCULAR HEMOGLOBIN 30.5 pg (25-34); MEAN CORPUSCULAR HGB CONC 34.2 g/dl (32-36); MEAN PLATELET VOLUME 9.5 fL (7.4-10.4); MONO % 11.5 %; MONO ABS # 1.08 K/uL (0.11-0.59); NEUT ABS # 6.51 K/uL (1.4-6.5); PLATELET COUNT 302 K/uL (130-400); RED CELL DISTRIBUTION WIDTH CV 14.2 % (11.5-14.5); RED CELL DISTRIBUTION WIDTH SD 46.5 fL (36.4-46.3); WHITE BLOOD COUNT 9.42 K/uL (4.8-10.8)
[2018-01-05] MEDS ORDERED: ONDANSETRON INJ 2 MG/ML 2 ML VIAL IV STA (21:50)
[2018-01-05 21:55] LABS: ALBUMIN 3.3 gm/dl (3.4-5.0); CALCIUM 8.6 mg/dl (8.5-10.1); CREATININE 1.27 mg/dl (0.60-1.40)
[2018-01-05 21:58] LABS: TOTAL PROTEIN 7.6 gm/dl (6.4-8.2)
--- NOTE | 2018-01-05 22:32 | DIAGNOSTIC IMAGING REPORT ---
(TESTICULAR) SCROTUM-CONT CLINICAL HISTORY: 42 years-old Male presenting with testicular pain, mid testicular pain after right inguinal hernia repair. TECHNIQUE: Real-time grayscale and color and spectral Doppler ultrasound imaging of the scrotum was performed. COMPARISON: 12/20/2017. FINDINGS: Right testis: Normal echogenicity and echotexture. Testis measures 5.1 x 2.3 x 2.9 cm. Normal color Doppler flow and arterial and venous waveforms in the testicular parenchyma. Epididymal head normal. Trace hydrocele aerated No varicocele. Left testis: Normal echogenicity and echotexture. Testis measures 4.0 x 2.1 x 2.8 cm. Normal color Doppler flow and arterial and venous waveforms in the testicular parenchyma. Epididymal head normal. Trace hydrocele. Varicocele present. Symmetric perfusion of the testes. IMPRESSION: 1. Trace hydroceles. 2. Left varicocele. 3. No evidence of testicular torsion. Electronically signed by: Grayson Bledsoe M.D. 01/05/2018 10:30 PM Dictated Date/Time: 01/05/2018 10:29 PM
[2018-01-05] MEDS ORDERED: HYDROCODONE/ACETAMINOPHEN 7.5/325MG TAB PO STA (22:54)
[2018-01-05 23:04] VITALS: BP 134/73; PULSE 70; O2SAT 95
== END 2018-01-05 23:33 | disposition home or self-care (01) ==
LOC: C.EDB 19:43
DX: R10.30 Lower abdominal pain, unspecified (principal); Z98.890 Other specified postprocedural states; N43.3 Hydrocele, unspecified; I86.1 Scrotal varices; J45.909 Unspecified asthma, uncomplicated; I10 Essential (primary) hypertension; E11.9 Type 2 diabetes mellitus without complications; Z79.82 Long term (current) use of aspirin; Z88.0 Allergy status to penicillin; Z86.711 Personal history of pulmonary embolism; Z85.528 Personal history of other malignant neoplasm of kidney; Z83.3 Family history of diabetes mellitus; Z82.49 Family history of ischemic heart disease and other diseases of the circulatory system

== ENCOUNTER → 2018-01-19 | Outpatient (CLI) | payer OTHER ==
[~2018-01-19] MED LIST changes: +HYDR-3983 PO; +MOME200A INH; -[UNRECOGNIZED DRUG - OTHER] TOP
== END | disposition home or self-care (01) ==
LOC: C.LABSPEC 17:12
PROVIDERS: ATTEND Urology
DX: R30.0 Dysuria (principal); R31.29 Other microscopic hematuria

== ENCOUNTER → 2018-01-19 | Outpatient (CLI) | payer OTHER ==
--- NOTE | 2018-01-19 13:26 | DIAGNOSTIC IMAGING REPORT ---
VIDEO SWALLOW HISTORY: Dysphagia DYSPHAGIA TECHNIQUE: Video fluoroscopic evaluation of swallowing was performed in the AP and lateral projections by the speech pathology staff. The patient is fed nectar-thick and thin liquid barium, a barium coated wafer, and barium pudding. FLUOROSCOPY TIME: 3.2 minutes. COMPARISON STUDY: None. FINDINGS: There is normal hyoid excursion and epiglottic deflection. No significant aspiration. Delayed/disordered swallowing function. Moderate esophageal dysmotility IMPRESSION: 1. Delayed/disordered swallowing function. Esophageal dysmotility/spasm. No evidence for aspiration. 2. Please see the speech pathologist report for detailed findings and recommendations. The above report was generated using voice recognition software. It may contain grammatical, syntax or spelling errors. Electronically signed by: Raudel Kerr M.D. 01/19/2018 1:24 PM Dictated Date/Time: 01/19/2018 1:23 PM
--- NOTE | 2018-01-19 15:39 | SWALLOWING EVALUATION ---
HISTORY: This 42 year old man was referred for a video swallow study at [facility] in order to rule out aspiration and identify the safest consistencies for optimal oral intake. The patient reports coughing while eating and has a known history of GERD. He stated he had a "bad night" of GERD last night and that his throat feels irritated. Patient also stated that while eating he can feel food become stuck in the mid sternum area. PMH is significant for asthma, HTN, kidney cancer, anxiety, morbid obesity, EDIN. Current diet is regular soft. PROCEDURE: The patient was seen in the Radiology Department of [facility] for the VFSS. Cursory examination of the oral cavity revealed the patient to be edentulous. Oral motor function was wnl. The patient was seated upright on a stool and was viewed in both the Anterior-Posterior (A-P) and Lateral planes. Volitional phonation exercises completed in the A-P plane revealed bilateral vocal fold movement. Vocal intensity was wnl. Patient required repositioning throughout the study as he was unable to fully relax his shoulders, compromising the lateral view of the study at times. In the lateral plane, the patient was given the following boluses: 1 tsp. thin liquid barium x 2, single swallow thin liquid barium self-presented from a cup, sequential swallows of thin liquid barium self-presented from a straw, 1 tsp. nectar-thick liquid barium, single swallow nectar-thick liquid barium self-presented from a cup, 1 tsp. barium pudding, and 1 club cracker coated in barium pudding. The patient was then repositioned into the A-P plane and given the following boluses: 1 tsp. nectar thick barium and 1 tsp. barium pudding. RESULTS: Oral Stage: Lip closure was adequate. The patient was unable to maintain a cohesive liquid bolus in the oral cavity, as evidenced by premature spillage of less than half the bolus during the bolus hold task. Mastication was disorganized. Lingual motion for bolus transport was also noted to be slow. There was retention lining the tongue and palate after the initial swallow. The initiation of the pharyngeal swallow occurred when the bolus head reached the pyriforms. Patient tended to swallow in piecemeal like fashion. Pharyngeal Stage: Soft palate elevation was complete. Laryngeal elevation revealed complete superior movement of the thyroid cartilage with complete approximation of the arytenoids to the epiglottic base. Anterior hyoid excursion and epiglottic deflection are complete. Laryngeal vestibular closure was complete. The pharyngeal stripping wave was present and complete. Pharyngeal contraction was complete. There was complete distention and duration of the opening to the pharyngoesophageal segment (PES). Tongue base retraction was partially reduced with a narrow column of contrast located between the tongue base and pharyngeal wall during the swallow. There was retention located along the tongue base, in the valleculae, and pyriforms after the swallow. There was no evidence of laryngeal penetration or aspiration for this study. The patient was noted to have frequent coughing after the swallow but this was NOT aspiration. The patient felt as though his throat irritation was contributing to this cough. A second swallow assisted to clear a majority of the retention but not fully. Esophageal stage: The patient presented with mid-distal esophageal retention. This is suggestive of esophageal dysmotility. A liquid wash assisted to clear the majority of the retention. SUMMARY/RECOMMENDATIONS: This patient presents with mild reba-pharyngeal dysphagia. He presents with s/s of esophageal dysfunction. The following is recommended: 1. Soft "slippery" diet and thin liquids. Avoid foods that are dry, thick, pasty, and doughy. Use condiments such as sauce and gravy to assist in keeping foods moist. 2. Aspiration and GERD precautions. Straws OK. Fully upright for meals and for 30 minutes after meals. Head of bed to be elevated to at least 30 degrees at all times, to include while sleeping. 3. Alternate solids and liquids. Allow for rest breaks while eating. Small frequent meals. 4. Consider follow up with GI for further testing (EGD vs Barium Swallow) and medication management as appropriate. A summary of the results and recommendations was discussed with the patient immediately after the study with verbal understanding. Both verbal and written information was provided re: a slippery diet and GERD precautions. He verbalized understanding to the slippery diet and already follows GERD precautions at home. Thank you for referral of this patient. Please contact me at if any additional information is needed.
== END | disposition home or self-care (01) ==
LOC: C.RAD 11:15
PROVIDERS: ATTEND Nurse Practitioner Family
DX: R13.10 Dysphagia, unspecified (principal); K22.4 Dyskinesia of esophagus

== ENCOUNTER → 2018-01-26 | Day surgery (SDC) | payer OTHER ==
[2018-01-24 08:00] VITALS: Ht 167.6 cm; Wt 131.8 kg
[~2018-01-26] VITALS: Ht 167.6 cm; Wt 131.8 kg
[~2018-01-26] MED LIST changes: -HYDR-3983 PO; +KETAMINE HCL INJ 50 MG/ML 10 ML VIAL ONE; +LIDOCAINE HCL 2% 2 ML VIAL (20MG/ML) ONE; -MOME200A INH; +PROPOFOL IV EMULSION 10 MG/ML 20 ML VIAL IV ONE
--- NOTE | 2018-01-26 10:44 | Endo History and Physical ---
History & Physical Date of Service: Jan 26, 2018. Chief Complaint: RUQ ABDOMINAL PAIN Referring Physician: DR. ROHAN ESCALANTE History of Present Illness Heartburn, dysphagia Past Medical History Arthritis, Asthma, Male Genitourinary Prob., Pulmonary Emboli, Anxiety, Reflux, Cancer, Sleep Apnea, Hypertension, Depression Past Surgical History Hx Cardiac Surgery: Yes (HEART CATH/NO STENTS) Hx Internal Defibrillator: No Hx Pacemaker: No Hx Abdominal Surgery: Yes (RT INGUINAL HERNIA) Hx of Implantable Prosthesis: No Hx Post-Op Nausea and Vomiting: Yes Hx Cancer Surgery: Yes (PARTIAL LEFT NEPRHECTOMY, LEFT UNDER EYE MOHS PROCEDURE ) Hx Thoracic Surgery: No Hx Orthopedic: No Hx Urinary Tract Surgery: No Family History IBD Social History Smoking Status: Never Smoker Hx Substance Use: No Hx Alcohol Use: Yes (OCCASIONALLY) Allergies Coded Allergies: Oxycodone (Verified Allergy, Severe, THROAT SWELLED UP, HARD TIME BREATHING, 01/26/18) GI UPSET, CONSTIPATION Penicillins (Verified Allergy, Severe, THROAT SWELLING, 01/26/18) Ketorolac (Verified Allergy, Intermediate, UPSET STOMACH/ ITCHY, 01/26/18) Tramadol (Verified Allergy, Intermediate, RASH, UPSET STOMACH, 01/26/18) Current Medications Reported Home Medications Medications Dose Route/Sig Max Daily Dose Days Date Category Dose Instructions Protonix (Pantoprazole Sodium) 40 Mg Tab 40 Mg PO BID 01/24/18 Reported Tamsulosin HCl 0.4 Mg Cap 1 Cap PO HS 12/15/17 Reported Calan Sr Ext Rel (Verapamil Hcl) 180 Mg Tab 180 Mg PO QAM 09/05/17 Reported Singulair (Montelukast Sodium) 10 Mg Tab 10 Mg PO QAM 09/05/17 Reported Hydrochlorothiazide 50 Mg Tab 50 Mg PO QAM 09/05/17 Reported Lipitor (Atorvastatin Calcium) 10 Mg Tab 10 Mg PO QAM 09/05/17 Reported Zestril (Lisinopril) 40 Mg Tab 40 Mg PO QAM 09/05/17 Reported Celexa (Citalopram Hydrobromide) 40 Mg Tab 40 Mg PO QAM 09/05/17 Reported Wellbutrin Xl (Bupropion Hcl) 300 Mg Tab 300 Mg PO QAM 09/05/17 Reported Proventil 0.083% 2.5MG/3ML (Albuterol Sulf) 2.5 Mg/3 Ml Nebu 2.5 Mg INH HS PRN 02/09/17 Reported Micro-K Ext Rel (Potassium Chloride) 10 Meq Capcr 10 Meq PO BID 02/09/17 Reported Aspirin Chewable (Aspirin) 81 Mg Chew 81 Mg PO QAM 06/23/16 Reported BEEN HOLD FOR "A WHILE", I HAVE TO BUY SOME Nitrostat (Nitroglycerin) 0.4 Mg Tab 0.4 Mg UT UD PRN 01/31/15 Reported Ventolin Hfa (Albuterol) 200 Puffs/22977 Mcg Aers 2 Puffs INH QID PRN 01/20/13 Reported Vital Signs Weight (Kilograms): 131.82 Height (Feet): 5 Height (Inches): 6 Date Time Temp Pulse Resp B/P (MAP) Pulse Ox O2 Delivery O2 Flow Rate FiO2 01/26/18 10:01 37.2 64 18 149/103 (118) 97 Room Air Physical Exam General Appearance: WD/WN, no apparent distress Respiratory/Chest: Respiratory effort: no dyspnea Auscultation: breath sounds normal, no wheezing Cardiovascular: Heart Auscultation: RRR, no murmurs Assessment and Plan EGD today.
--- NOTE | 2018-01-26 11:08 | GI REPORT ---
Procedure Date: 01/26/2018 10:51 AM Procedure: Upper GI endoscopy Indications: Dysphagia, Heartburn Medicines: Monitored Anesthesia Care Complications: No immediate complications. Estimated blood loss: None. Estimated Blood Loss: Estimated blood loss: none. Procedure: Pre-Anesthesia Assessment: - Prior to the procedure, a History and Physical was performed, and patient medications, allergies and sensitivities were reviewed. The patient's tolerance of previous anesthesia was reviewed. - ASA Grade Assessment: III - A patient with severe systemic disease. After obtaining informed consent, the endoscope was passed under direct vision. Throughout the procedure, the patient's blood pressure, pulse, and oxygen saturations were monitored continuously. The scope was introduced through the mouth, and advanced to the third part of duodenum. The upper GI endoscopy was accomplished with ease. The patient tolerated the procedure well. Findings: No endoscopic abnormality was evident in the esophagus to explain the patient's complaint of dysphagia. It was decided, however, to proceed with dilation of the entire esophagus. A guidewire was placed and the scope was withdrawn. Dilation was performed with an [place] dilator with no resistance at 48 Fr and 54 Fr. The Z-line was irregular and was found 40 cm from the incisors. Biopsies were taken with a cold forceps for histology. A small hiatal hernia was present. The entire examined stomach was normal. Biopsies were taken with a cold forceps for Helicobacter pylori testing. The examined duodenum was normal. Impression: - No endoscopic esophageal abnormality to explain patient's dysphagia. Esophagus dilated. Dilated. - Z-line irregular, 40 cm from the incisors. Biopsied. - Small hiatal hernia. - Normal stomach. Biopsied. - Normal examined duodenum. Recommendation: - Await pathology results. - Discharge patient to home (with escort). Amador Hernández M.D. Amador Hernández MD 01/26/2018 11:08:24 AM This report has been signed electronically. Note Initiated On: 01/26/2018 10:51 AM I attest to the content of the Intraoperative Record and orders documented therein, exceptions below
--- NOTE | 2018-01-26 11:11 | Discharge Instructions ---
Endoscopy Patient Instructions Date / Procedure(s) Performed Jan 26, 2018. EGD Allergy Information Coded Allergies: Oxycodone (Verified Allergy, Severe, THROAT SWELLED UP, HARD TIME BREATHING, 01/26/18) GI UPSET, CONSTIPATION Penicillins (Verified Allergy, Severe, THROAT SWELLING, 01/26/18) Ketorolac (Verified Allergy, Intermediate, UPSET STOMACH/ ITCHY, 01/26/18) Tramadol (Verified Allergy, Intermediate, RASH, UPSET STOMACH, 01/26/18) Discharge Date / Findings Jan 26, 2018. Small hiatal hernia; esophagus dilated to 54 Fr without mucosal disruption. Medication Instructions Stopped Medication(s): ASPIRIN 81 MG Restart Stopped Medication(s): Restart all medications today. Take pantoprazole as prescribed before breakfast and before supper. Provider Instructions Activity Restrictions - No exercising or heavy lifting for 24 hours. - Do not drink alcohol the day of the procedure. - Do not drive a car or operate machinery until the day after the procedure. - Do not make any important decisions or sign important papers in 24 hours after the procedure. Following Day: - Return to full activity which may include returning to work/school. Diet Start your diet with liquids and light foods (jello, soup, juice, toast). Then eat your usual diet if not nauseated. Treatment For Common After Affects For mild abdominal pain, bloating, or excessive gas: - Rest - Eat lightly - Lie on right side Follow-Up Information Follow-up with DR. ROHAN ESCALANTE as scheduled Anesthesia Information What You Should Know You have had a procedure that required some medicine to reduce anxiety and discomfort. This treatment is called moderate sedation. After receiving the treatment, you may be sleepy, but you will be able to breathe on your own. The effects of the treatment may last for several hours. Follow these instructions along with Activity/Diet recommendations noted above: * Do NOT do anything where dizziness or clumsiness would be dangerous. * Rest quietly at home today, then you can be up and about tomorrow. * Have a responsible person stay with you the rest of today. * You may have had an I.V. today. If so, you may take the dressing off later today. Recommendations Call your doctor if: * Trouble breathing * Continuous vomiting for more than 24 hours * Temperature above 101 degrees * Severe abdominal pain or bloating * Pain not relieved by pain medicine ordered * There is increased drainage or redness from any incision * A large amount of rectal bleeding greater than 2-3 tablespoons. (If you had a polyp/s removed or have hemorrhoids, a small amount of blood - from the rectum is to be expected.) * You have any unanswered questions or concerns. IN THE EVENT OF A SERIOUS EMERGENCY, GO TO THE NEAREST EMERGENCY ROOM Your discharge instructions were prepared by provider Amador Hernández. Patient Instructions Signature Page Luis Hodge Patient (or Guardian) Signature/Date: I have read and understand the instructions given to me by my caregivers. Caregiver/RN/Doctor Signature/Date: The above-named patient and/or guardian has received patient instructions on this date. + Original Patient Signature Page (only) stays with chart. Please make copy for patient.
--- NOTE | 2018-01-26 11:25 | Anesthesiology Progress Note ---
Anesthesia Post Op Note Date & Time Jan 26, 2018 at 11:24 Vital Signs Vital Signs Past 12 Hours Date Time Temp Pulse Resp B/P (MAP) Pulse Ox O2 Delivery O2 Flow Rate FiO2 01/26/18 11:18 144/99 (114) 01/26/18 11:08 64 18 174/102 (126) 97 Room Air 01/26/18 10:01 37.2 64 18 149/103 (118) 97 Room Air Notes Mental Status: alert / awake / arousable, participated in evaluation Pt Amnestic to Procedure: Yes Nausea / Vomiting: adequately controlled Pain: adequately controlled Airway Patency, RR, SpO2: stable & adequate BP & HR: stable & adequate Hydration State: stable & adequate Anesthetic Complications: no major complications apparent
[2018-01-26 11:41] VITALS: BP 147/100; PULSE 70; O2SAT 97
== END | disposition home or self-care (01) ==
LOC: C.GI 09:37
PROVIDERS: ATTEND Internal Medicine Gastroenterology
DX: R13.10 Dysphagia, unspecified (principal); K29.50 Unspecified chronic gastritis without bleeding; K20.9 Esophagitis, unspecified; K44.9 Diaphragmatic hernia without obstruction or gangrene; I25.10 Atherosclerotic heart disease of native coronary artery without angina pectoris; J45.909 Unspecified asthma, uncomplicated; Z88.1 Allergy status to other antibiotic agents; Z88.5 Allergy status to narcotic agent; Z79.82 Long term (current) use of aspirin

== ENCOUNTER → 2018-01-31 | Outpatient (CLI) | payer OTHER ==
[~2018-01-31] MED LIST changes: -KETAMINE HCL INJ 50 MG/ML 10 ML VIAL ONE; -LIDOCAINE HCL 2% 2 ML VIAL (20MG/ML) ONE; +MOME200A INH; -PROPOFOL IV EMULSION 10 MG/ML 20 ML VIAL IV ONE; +SINCALIDE INJ 2.6 MCG in SODIUM CHLORIDE 0.9% 100ML 100 ML IV SCH
--- NOTE | 2018-01-31 14:04 | DIAGNOSTIC IMAGING REPORT ---
HEPATOBILIARY EF IMAGING CLINICAL HISTORY: 42 years-old Male with RUQ ABDOMINAL PAIN. Acute right upper quadrant abdominal pain TECHNIQUE: Following the intravenous administration of 5 mCi of technetium-99m Choletec, sequential abdominal images were obtained. In order to evaluate the contractile response of the gallbladder, 2.6 mcg of Kinevac was administered by slow intravenous infusion over 10 min starting approximately 65 min after the administration of the radiopharmaceutical. Sequential imaging was continued for 45 min after the start of the Kinevac infusion. The patient reportedly had pain with Kinevac injection. COMPARISON: CT abdomen and pelvis 12/20/2017 FINDINGS: There is prompt, uniform accumulation of the tracer by the liver. There is normal filling of the intrahepatic ducts, common bile duct and gallbladder and normal excretion of the tracer into the duodenum. There is adequate contraction of the gallbladder. The calculated gallbladder ejection fraction is 90% (normal >40%). There is no significant enterogastric reflux. IMPRESSION: 1. Normal contractile response of the gallbladder to Kinevac infusion. 2. Normal biliary imaging study. The above report was generated using voice recognition software. It may contain grammatical, syntax or spelling errors. Electronically signed by: Marquis Edmonds M.D. 01/31/2018 2:03 PM Dictated Date/Time: 01/31/2018 1:40 PM
== END | disposition home or self-care (01) ==
LOC: C.NUCL 10:52
PROVIDERS: ATTEND Nurse Practitioner Family
DX: R13.10 Dysphagia, unspecified (principal); K22.4 Dyskinesia of esophagus; R10.11 Right upper quadrant pain

== ENCOUNTER 2018-02-04 12:14 | Inpatient (IN) | payer OTHER ==
[~2018-02-04] VITALS: Ht 167.6 cm; Wt 133.6 kg
[~2018-02-04 12:14] MED LIST changes: -MOME200A INH; -SINCALIDE INJ 2.6 MCG in SODIUM CHLORIDE 0.9% 100ML 100 ML IV SCH
[2018-02-04] MEDS ORDERED: ASPIRIN 81 MG CHEW PO STA (12:33)
[2018-02-04] MEDS ORDERED: ONDANSETRON INJ 2 MG/ML 2 ML VIAL IV STA (12:33)
[2018-02-04] MEDS ORDERED: NITROGLYCERIN 2% OINTMENT 30GM TUBE EXT ONE (12:45)
--- NOTE | 2018-02-04 13:05 | DIAGNOSTIC IMAGING REPORT ---
CHEST ONE VIEW PORTABLE HISTORY: 42 years-old Male CHEST PAIN acute atypical chest pain COMPARISON: Chest radiograph 02/09/2017 TECHNIQUE: Portable AP view of the chest FINDINGS: Patient is slightly rotated to the right. Cardiac silhouette is within normal limits. The lungs are mildly hypoinflated with mild right hemidiaphragmatic elevation. Hazy opacity of the medial right lung apex without pneumothorax or pleural effusion. Lungs are otherwise clear. The bones appear grossly intact. IMPRESSION: Ill-defined opacity of the medial right lung apex suggests composite tissue density, accentuated by patient positioning and portable technique. Underlying airspace disease could appear similar. Confirmation with PA and lateral views of the chest could be considered. The above report was generated using voice recognition software. It may contain grammatical, syntax or spelling errors. Electronically signed by: Marquis Edmonds M.D. 02/04/2018 1:04 PM Dictated Date/Time: 02/04/2018 1:02 PM
[2018-02-04 13:13] LABS: HEMATOCRIT 44.7 % (42-52); HEMOGLOBIN 15.5 g/dL (14.0-18.0); MEAN CELL VOLUME 87.6 fL (80-100); MEAN CORPUSCULAR HEMOGLOBIN 30.4 pg (25-34); MEAN CORPUSCULAR HGB CONC 34.7 g/dl (32-36); PLATELET COUNT 315 K/uL (130-400); RED CELL DISTRIBUTION WIDTH CV 14.1 % (11.5-14.5); RED CELL DISTRIBUTION WIDTH SD 45.3 fL (36.4-46.3); WHITE BLOOD COUNT 7.69 K/uL (4.8-10.8)
[2018-02-04 13:15] LABS: PTT PATIENT 25.2 SECONDS (21.0-31.0)
[2018-02-04 13:21] LABS: ALBUMIN 3.8 gm/dl (3.4-5.0); ALT/SGPT 45 U/L (12-78); BLOOD UREA NITROGEN 18 mg/dl (7-18); CALCIUM 9.1 mg/dl (8.5-10.1); CARBON DIOXIDE 30 mmol/L (21-32); CREATININE 0.86 mg/dl (0.60-1.40); GLUCOSE 83 mg/dl (70-99); LIPASE 101 U/L (73-393); POTASSIUM 3.9 mmol/L (3.5-5.1); SODIUM 137 mmol/L (136-145)
[2018-02-04 13:26] LABS: ALKALINE PHOSPHATASE 103 U/L (45-117); AST/SGOT 19 U/L (15-37)
--- NOTE | 2018-02-04 13:31 | EMERGENCY ROOM VISIT NOTE ---
History Report prepared by Lazaro: Esperanza Gonzalez Under the Supervision of: Dr. Scar Mascorro M.D. First contact with patient: 12:24 Chief Complaint: CHEST PAIN Stated Complaint: CHEST PAIN AND RIGHT SIDE PAIN, PRIVATES HURT Nursing Triage Summary: Substernal CP and dyspnea at rest/orthopnea that woke him up this AM at 0200. Also c/o right upper quadrant abdominal pain with associated N/V/D and bilateral testicular pain that has been going on for two days. Pain 10/10. Denies cardiac hx. "they've been checking my gall bladder and I have acid reflux real bad". History of Present Illness The patient is a 42 year old male who presents to the Emergency Room with complaints of sudden chest pain and shortness of breath beginning at 2 am. The patient states his pain woke him from his sleep and was constant for a couple hours. At the onset of his symptoms, he rates his pain as a 10/10 and states his pain radiated to his left arm. He also reports he was nauseated with the onset of his symptoms. The patient did not take nitroglycerin. The patient states he has a history of panic attacks and anxiety but he does not believe his symptoms were from panic. He states he has been having intermittent chest pain for the past two months. The patient had a heart catheterization in 2014. He reports there was no blockage with his cath in 2104. The patient states he has not taken nitroglycerin for the last year and a half. He notes some testicle pain but denies any urinary symptoms. The patient also notes some increased leg swelling and decreased appetite. The patient states he has been following up with his PCP for gallbladder "issues". The patient has a history of hernia repair surgery. Source of History: patient Onset: 2 am Position: other (generalized) Symptom Intensity: 10/10 Quality: other (chest pain and shortness of breath) Timing: constant Associated Symptoms: + chest pain, + SOB, No urinary symptoms Review of Systems See HPI for pertinent positives & negatives. A total of 10 systems reviewed and were otherwise negative. Past Medical & Surgical Medical Problems: (1) ASTHMA, UNSPECIFIED, W (ACUTE) EXACERBATION (2) Asthma, Unspecified, W (Acute) Exacerbation (3) Asthma, Unspecified, W (Acute) Exacerbation (4) BENIGN HYPERTENSION (5) BODY MASS INDEX 50.0-59.9, ADULT (6) Cancer of kidney (7) Diab Hannah Wo Compl, Type Ii Or Unspec Type, Not Uncntrld (8) GENERALIZED ANXIETY DIS (9) HX-PENICILLIN ALLERGY (10) Hypertension Nos (11) MORBID OBESITY (12) Renal cell carcinoma Family History Diabetes mellitus FH: heart disease Hypertension Social History Smoking Status: Never Smoker Alcohol Use: none Drug Use: none Marital Status: Housing Status: lives with family Occupation Status: employed Current/Historical Medications Scheduled Aspirin (Aspirin Chewable), 81 MG PO QAM Atorvastatin (Lipitor), 10 MG PO QAM Bupropion Hcl (Wellbutrin Xl), 300 MG PO QAM Citalopram Hydrobromide (Celexa), 40 MG PO QAM Hydrochlorothiazide (Hydrochlorothiazide), 50 MG PO QAM Lisinopril (Zestril), 40 MG PO QAM Montelukast Sodium (Singulair), 10 MG PO QAM Pantoprazole (Protonix), 40 MG PO BID Potassium Chloride (Micro-K Ext Rel), 10 MEQ PO BID Tamsulosin HCl (Tamsulosin HCl), 0.4 MG PO HS Verapamil Hcl (Calan Sr Ext Rel), 180 MG PO QAM Scheduled PRN Albuterol Hfa (Ventolin Hfa), 2 PUFFS INH QID PRN for Shortness of Breath Albuterol Sulf (Proventil 0.083% 2.5MG/3ML), 2.5 MG INH HS PRN for PRN Nitroglycerin (Nitrostat), 0.4 MG UT UD PRN for Chest Pain Allergies Coded Allergies: Oxycodone (Verified Allergy, Severe, THROAT SWELLED UP, HARD TIME BREATHING, 02/04/18) GI UPSET, CONSTIPATION Penicillins (Verified Allergy, Severe, THROAT SWELLING, 02/04/18) Ketorolac (Verified Allergy, Intermediate, UPSET STOMACH/ ITCHY, 02/04/18) Tramadol (Verified Allergy, Intermediate, RASH, UPSET STOMACH, 02/04/18) Physical Exam Vital Signs Date Time Temp Pulse Resp B/P (MAP) Pulse Ox O2 Delivery O2 Flow Rate FiO2 02/04/18 13:39 72 18 149/92 94 Room Air 02/04/18 13:04 67 16 126/87 95 Room Air 02/04/18 12:38 66 02/04/18 12:33 95 Room Air 02/04/18 12:16 36.5 66 20 167/103 97 Room Air 02/04/18 12:16 97 Physical Exam GENERAL: Patient is in no acute distress. HEENT: No acute trauma, normocephalic atraumatic, mucous membranes moist, no nasal congestion, no scleral icterus. NECK: No stridor, no adenopathy, no meningismus, trachea is midline. LUNGS: Clear to auscultation bilaterally, no wheeze, no rhonchi, breath sounds equal. HEART: Subtle systolic murmur, regular rate and rhythm. ABDOMEN: Soft, nontender, bowel sounds positive, no hernias, no peritonitis. EXTREMITIES: No cyanosis or edema, full range of motion of all the joints without pain or difficulty, no signs for acute trauma. NEUROLOGIC: Oriented x 3, no acute motor or sensory deficits, no focal weakness. SKIN: No rash, no jaundice, no diaphoresis. : No penile discharge, no scrotal cellulitis. Testicles are normal in size and mildly diffusely tender. Medical Decision & Procedures ER Provider Diagnostic Interpretation: Radiology results as stated below per my review and radiologist interpretation: CHEST ONE VIEW PORTABLE FINDINGS: Patient is slightly rotated to the right. Cardiac silhouette is within normal limits. The lungs are mildly hypoinflated with mild right hemidiaphragmatic elevation. Hazy opacity of the medial right lung apex without pneumothorax or pleural effusion. Lungs are otherwise clear. The bones appear grossly intact. IMPRESSION: Ill-defined opacity of the medial right lung apex suggests composite tissue density, accentuated by patient positioning and portable technique. Underlying airspace disease could appear similar. Confirmation with PA and lateral views of the chest could be considered. The above report was generated using voice recognition software. It may contain grammatical, syntax or spelling errors. Electronically signed by: Marquis Edmonds M.D. Laboratory Results 02/04/18 12:30 02/04/18 12:30 Test 02/04/18 12:30 02/04/18 13:45 Red Blood Count 5.10 M/uL (4.7-6.1) Mean Corpuscular Volume 87.6 fL (80-100) Mean Corpuscular Hemoglobin 30.4 pg (25-34) Mean Corpuscular Hemoglobin Concent 34.7 g/dl (32-36) RDW Standard Deviation 45.3 fL (36.4-46.3) RDW Coefficient of Variation 14.1 % (11.5-14.5) Mean Platelet Volume 9.0 fL (7.4-10.4) Nucleated RBC Absolute Count (auto) 0.00 K/uL (0-0) Nucleated Red Blood Cells % 0.0 % Prothrombin Time 10.2 SECONDS (9.0-12.0) Prothromb Time International Ratio 1.0 (0.9-1.1) Activated Partial Thromboplast Time 25.2 SECONDS (21.0-31.0) Partial Thromboplastin Ratio 1.0 Anion Gap 4.0 mmol/L (3-11) Est Creatinine Clear Calc Drug Dose 144.2 ml/min Estimated GFR () 122.2 Estimated GFR (Non- 105.5 BUN/Creatinine Ratio 20.7 (10-20) Calcium Level 9.1 mg/dl (8.5-10.1) Total Bilirubin 0.2 mg/dl (0.2-1) Aspartate Amino Transf (AST/SGOT) 19 U/L (15-37) Alanine Aminotransferase (ALT/SGPT) 45 U/L (12-78) Alkaline Phosphatase 103 U/L (45-117) Troponin I < 0.015 ng/ml (0-0.045) Total Protein 8.0 gm/dl (6.4-8.2) Albumin 3.8 gm/dl (3.4-5.0) Globulin 4.2 gm/dl (2.5-4.0) Albumin/Globulin Ratio 0.9 (0.9-2) Lipase 101 U/L (73-393) Urine Color YELLOW Urine Appearance CLEAR (CLEAR) Urine pH 5.0 (4.5-7.5) Urine Specific [place] 1.013 (1.000-1.030) Urine Protein NEG (NEG) Urine Glucose (UA) NEG (NEG) Urine Ketones NEG (NEG) Urine Occult Blood NEG (NEG) Urine Nitrite NEG (NEG) Urine Bilirubin NEG (NEG) Urine Urobilinogen NEG (NEG) Urine Leukocyte Esterase NEG (NEG) Laboratory results reviewed by me. Medications Administered Medications (Trade) Dose Ordered Sig/[place] Route Start Time Stop Time Status Last Admin Dose Admin Nitroglycerin (Nitroglycerin 2% Oint) 1 inch NOW ONCE EXT 02/04/18 12:45 02/04/18 12:46 DC 02/04/18 13:01 1 INCH Aspirin (Aspirin Chew) 324 mg NOW STAT PO 02/04/18 12:33 02/04/18 12:40 DC 02/04/18 13:01 324 MG Ondansetron HCl (Zofran Inj) 4 mg NOW STAT IV 02/04/18 12:33 02/04/18 12:39 DC 02/04/18 13:01 4 MG ECG Per My Interpretation Indication: chest pain Rate (beats per minute): 66 Rhythm: normal sinus Findings: other (No PVC, No ST elevation) ED Course 1229: The patient was evaluated in room B11B. A complete history and physical exam was performed. 1233: Ordered Zofran Inj 4 mg IV, Aspirin 324 mg PO. 1245: Ordered Nitroglycerin 1 inch. 1343: I updated the patient on his test results. He is resting comfortably. 1404: Discussed the patient's case with Dr. Saunders. The patient will be evaluated for further management. 1412: Ordered Acetaminophen 1000 mg PO. Medical Decision Differential diagnoses include: cardiac ischemia, angina, IA, pneumonia, CHF, pericarditis, pancreatitis, UTI, anxiety, musculoskeletal pain. There is no leukocytosis or worrisome anemia. No significant electrolyte abnormality, kidney failure or hepatitis. There is no pancreatitis. EKG shows a normal sinus rhythm, no acute ischemia. Cardiac enzyme testing 1 is not consistent with acute cardiac injury. Urinalysis does not show hematuria or infection. Chest x-ray does not show CHF or pneumothorax. No obvious pneumonia. No mediastinal widening. The patient presents with chest pain, some shortness of breath and nausea. He did receive nitroglycerin paste, IV Zofran, oral aspirin and oral Tylenol. He does feel improved. He believes the nitroglycerin has helped his chest discomfort. The patient presents with chest pain which sounds possibly cardiac in nature. I do think further workup in the hospital is required. I talked with the patient about his findings. I spoke to case management. The on-call hospitalist was consulted. Medication Reconcilliation Current Medication List: was personally reviewed by me Blood Pressure Screening Patient's blood pressure: Elevated blood pressure Blood pressure disposition: Referred to PCP (referred to hospitalist) Consults Time Called: [phone] Consulting Physician: Dr. Saunders Returned Call: [phone] Discussed the patient's case with Dr. Saunders. The patient will be evaluated for further management. Impression Primary Impression: Precordial chest pain Scribe Attestation The scribe's documentation has been prepared under my direction and personally reviewed by me in its entirety. I confirm that the note above accurately reflects all work, treatment, procedures, and medical decision making performed by me. Departure Information Dispostion Being Evaluated By Hospitalist Referrals Mya Galvan D.O. (PCP) Patient Instructions My [facility]
[2018-02-04] MEDS ORDERED: ACETAMINOPHEN 500 MG TAB PO STA (14:12)
--- NOTE | 2018-02-04 14:13 | History and Physical ---
History & Physical Date & Time of Service: Feb 04, 2018 at 14:13 . Chief Complaint: chest pain . Primary Care Physician: Mya Galvan D.O. . History of Present Illness Source: patient, clinic records, hospital records 42-year-old male followed by Dr. Mya Morales for Family Medicine. History of hypertension, dyslipidemia, renal cell carcinoma, pulmonary embolism , and other problems as noted below. Father suffered a myocardial infarction at a young age Patient has had several episodes of chest pain over the years and has undergone stress testing and cardiac catheterization without significant findings. Cardiac catheterization was performed by Dr. Guerrero on 01/14/15; coronary anatomy was unremarkable. Recently experiencing chest pressure, dyspnea, and palpitations with exertion. Last evening he ate supper consisting of meat loaf, mashed potatoes, stuffing, gravy. This morning around 2 a.m. he awoke from sleep with midsternal chest pressure radiating to his left arm. Chest pain associated with dyspnea, mild diaphoresis, nausea. Symptoms improved after while, but then recurred around 4 a.m. He came to the ED for evaluation because of his persistent symptoms. In the ED he received nitroglycerin with relief of his chest discomfort. Chest pain-free at the time of my assessment, but experiencing a headache after receiving nitroglycerin. . Past Medical/Surgical History Chronic and Resolved Medical Problems: (1) Asthma Status: Chronic (2) Depression Status: Chronic (3) GERD (gastroesophageal reflux disease) Status: Chronic (4) History of basal cell carcinoma Status: Chronic (5) History of pulmonary embolism Status: Chronic (6) History of renal cell carcinoma Status: Chronic (7) Hypertension Status: Chronic (8) Obesity, morbid, BMI 40.0-49.9 Status: Chronic (9) Sleep apnea Status: Chronic Surgical Problems: (1) History of partial nephrectomy Permanent Comment: left kidney, renal cell carcinoma Status: Chronic (2) Status post inguinal hernia repair Status: Chronic . Family History FATHER Coronary artery disease Diabetes mellitus Kidney disease MOTHER Hypertension Social History Smoking Status: Never Smoker Alcohol Use: none Drug Use: none Marital Status: Occupational Status: employed Immunizations History of Influenza Vaccine: Yes History of Tetanus Vaccine?: Yes Tetanus Immunization Date: Jul 06, 2013 History of Pneumococcal: Yes Pneumococcal Date: Nov 12, 2013 Allergies Coded Allergies: Oxycodone (Verified Allergy, Severe, THROAT SWELLED UP, HARD TIME BREATHING, 02/04/18) GI UPSET, CONSTIPATION Penicillins (Verified Allergy, Severe, THROAT SWELLING, 02/04/18) Ketorolac (Verified Allergy, Intermediate, UPSET STOMACH/ ITCHY, 02/04/18) Tramadol (Verified Allergy, Intermediate, RASH, UPSET STOMACH, 02/04/18) Home Medications Scheduled Aspirin (Aspirin Chewable), 81 MG PO QAM Atorvastatin (Lipitor), 10 MG PO QAM Bupropion Hcl (Wellbutrin Xl), 300 MG PO QAM Citalopram Hydrobromide (Celexa), 40 MG PO QAM Hydrochlorothiazide (Hydrochlorothiazide), 50 MG PO QAM Lisinopril (Zestril), 40 MG PO QAM Mometasone Furoate-Formoterol (Dulera 200/5 Mcg), 2 PUFFS INH BID Montelukast Sodium (Singulair), 10 MG PO QAM Pantoprazole (Protonix), 40 MG PO BID Potassium Chloride (Micro-K Ext Rel), 10 MEQ PO TIDM Tamsulosin HCl (Tamsulosin HCl), 0.4 MG PO HS Verapamil Hcl (Calan Sr Ext Rel), 180 MG PO QAM Scheduled PRN Albuterol Hfa (Ventolin Hfa), 2 PUFFS INH Q4 PRN for Shortness of Breath Albuterol Sulf (Proventil 0.083% 2.5MG/3ML), 2.5 MG INH Q4 PRN for PRN Nitroglycerin (Nitrostat), 0.4 MG UT UD PRN for Chest Pain Review of Systems Constitutional: + fever, + weight loss (Intentional weight loss) Eyes: No worsening of vision, No diplopia ENT: + nasal symptoms (Sinus congestion), No sore throat Respiratory: + cough (Occasional), + dyspnea on exertion Cardiovascular: + problem reported (As noted above in HPI) Abdomen: + nausea, + vomiting, No GI bleeding Musculoskeletal: + joint pain (Knee pain) Genitourinary - Male: No hematuria, No dysuria Neurologic: + problem reported (Headache after nitroglycerin) Endocrine: No excessive thirst, No excessive urination Hematologic / Lymphatic: + abnormal bleeding/bruising (Bruises easily), No swollen lymph nodes Integumentary: No rash, No new/changing skin lesions Physical Exam Vital Signs Date Time Temp Pulse Resp B/P (MAP) Pulse Ox O2 Delivery O2 Flow Rate FiO2 02/04/18 13:39 72 18 149/92 94 Room Air 02/04/18 13:04 67 16 126/87 95 Room Air 02/04/18 12:38 66 02/04/18 12:33 95 Room Air 02/04/18 12:16 36.5 66 20 167/103 97 Room Air 02/04/18 12:16 97 CONSTITUTIONAL vital signs as noted above adult male, obese, no acute distress EYES conjunctivae clear; lids normal pupils equal and reactive to light EARS, NOSE, MOUTH AND THROAT external inspection of ears and nose unremarkable hearing grossly intact to spoken voice oropharynx clear edentulous NECK no masses; trachea midline thyroid normal RESPIRATORY normal respiratory effort; no respiratory distress clear to percussion clear to auscultation CARDIOVASCULAR regular rate and rhythm no murmur, gallop, rub appreciated carotid arteries 2/2; no bruits appreciated abdominal aorta not palpable radial and pedal pulses intact and symmetric capillary refill toes < 2 seconds no pretibial edema GASTROINTESTINAL normal bowel sounds, soft, no palpable masses mild-moderate RUQ tenderness without guarding or rebound no hepatomegaly or splenomegaly appreciated, but exam limited LYMPHATIC no cervical adenopathy MUSCULOSKELETAL no cyanosis; no digital clubbing no calf tenderness motor strength extremities grossly intact SKIN no rash warm and dry NEUROLOGIC PERRL, EOMI, no facial palsy, no dysarthria, tongue midline patellar DTR's 2/2 PSYCHIATRIC oriented to person, place, time mood and affect appropriate . Diagnostics Laboratory Results Results Past 24 Hours Test 02/04/18 12:30 02/04/18 13:45 Range/Units White Blood Count 7.69 4.8-10.8 K/uL Red Blood Count 5.10 4.7-6.1 M/uL Hemoglobin 15.5 14.0-18.0 g/dL Hematocrit 44.7 42-52 % Mean Corpuscular Volume 87.6 80-100 fL Mean Corpuscular Hemoglobin 30.4 25-34 pg Mean Corpuscular Hemoglobin Concent 34.7 32-36 g/dl RDW Standard Deviation 45.3 36.4-46.3 fL RDW Coefficient of Variation 14.1 11.5-14.5 % Platelet Count 315 130-400 K/uL Mean Platelet Volume 9.0 7.4-10.4 fL Nucleated RBC Absolute Count (auto) 0.00 0-0 K/uL Nucleated Red Blood Cells % 0.0 % Prothrombin Time 10.2 9.0-12.0 SECONDS Prothromb Time International Ratio 1.0 0.9-1.1 Activated Partial Thromboplast Time 25.2 21.0-31.0 SECONDS Partial Thromboplastin Ratio 1.0 Sodium Level 137 136-145 mmol/L Potassium Level 3.9 3.5-5.1 mmol/L Chloride Level 103 98-107 mmol/L Carbon Dioxide Level 30 21-32 mmol/L Anion Gap 4.0 3-11 mmol/L Blood Urea Nitrogen 18 7-18 mg/dl Creatinine 0.86 0.60-1.40 mg/dl Est Creatinine Clear Calc Drug Dose 144.2 ml/min Estimated GFR () 122.2 Estimated GFR (Non- 105.5 BUN/Creatinine Ratio 20.7 10-20 Random Glucose 83 70-99 mg/dl Calcium Level 9.1 8.5-10.1 mg/dl Total Bilirubin 0.2 0.2-1 mg/dl Aspartate Amino Transf (AST/SGOT) 19 15-37 U/L Alanine Aminotransferase (ALT/SGPT) 45 12-78 U/L Alkaline Phosphatase 103 45-117 U/L Troponin I < 0.015 0-0.045 ng/ml Total Protein 8.0 6.4-8.2 gm/dl Albumin 3.8 3.4-5.0 gm/dl Globulin 4.2 2.5-4.0 gm/dl Albumin/Globulin Ratio 0.9 0.9-2 Lipase 101 73-393 U/L Urine Color YELLOW Urine Appearance CLEAR CLEAR Urine pH 5.0 4.5-7.5 Urine Specific [place] 1.013 1.000-1.030 Urine Protein NEG NEG Urine Glucose (UA) NEG NEG Urine Ketones NEG NEG Urine Occult Blood NEG NEG Urine Nitrite NEG NEG Urine Bilirubin NEG NEG Urine Urobilinogen NEG NEG Urine Leukocyte Esterase NEG NEG Diagnostic Radiology CHEST ONE VIEW PORTABLE FINDINGS: Patient is slightly rotated to the right. Cardiac silhouette is within normal limits. The lungs are mildly hypoinflated with mild right hemidiaphragmatic elevation. Hazy opacity of the medial right lung apex without pneumothorax or pleural effusion. Lungs are otherwise clear. The bones appear grossly intact. IMPRESSION: Ill-defined opacity of the medial right lung apex suggests composite tissue density, accentuated by patient positioning and portable technique. Underlying airspace disease could appear similar. Confirmation with PA and lateral views of the chest could be considered. The above report was generated using voice recognition software. It may contain grammatical, syntax or spelling errors. Electronically signed by: Marquis Edmonds M.D. 02/04/2018 1:04 PM Dictated Date/Time: 02/04/2018 1:02 PM . EKG EKG performed at 1229 demonstrated normal sinus rhythm at 66/minute, no acute changes. . Impression Assessment and Plan CHEST PAIN Multiple risk factors for ischemic heart disease. Father suffered an ID at a young age. Patient experiencing exertional chest pressure, dyspnea, palpitations which could be anginal in nature. Symptoms early this morning more suggestive GI etiology. Patient had a recent swallowing study that demonstrated esophageal dysmotility. Gallbladder imaging in the past, including recent HIDA scan, unremarkable. First troponin in the ED normal. No acute changes on EKG. Check serial cardiac markers. Ongoing risk factor modification. Consult Cardiology. HYPERTENSION Continue verapamil, lisinopril, and hydrochlorothiazide. OBSTRUCTIVE LUNG DISEASE Pulmonary status stable. Continue usual inhalers. GERD Continue PPI. DYSLIPIDEMIA Continue atorvastatin. MORBID OBESITY AHA diet. VTE PROPHYLAXIS Moderate risk for VTE due to prior history of pulmonary embolism. SQ enoxaparin. Ambulate. DISPOSITION Observation status on Telemetry Unit. Expected discharge to home. Family Medicine follow-up with Dr. Mya Morales. . Resuscitation Status VTE Prophylaxis Will order VTE Prophylaxis: Yes
[2018-02-04] MEDS ORDERED: NITROGLYCERIN 0.4 MG SL PER TAB CHARGE SL PRN (14:15)
[2018-02-04] MEDS ORDERED: ALUMINUM/MAGNESIUM/SIMETH (MAALOX MAX) 30 ML UDC PO PRN (14:15)
[2018-02-04] MEDS ORDERED: ACETAMINOPHEN 325 MG TAB PO PRN (14:15)
[2018-02-04] MEDS ORDERED: MOME200A INH ×2 (14:50)
[2018-02-04 14:59] VITALS: Ht 167.6 cm; Wt 133.6 kg
[2018-02-04] MEDS ORDERED: IV FLUIDS COMPLETED PRN (15:00)
[2018-02-04] MEDS ORDERED: ALBUTEROL HFA 8 GM INHALER INH PRN (15:00)
[2018-02-04] MEDS ORDERED: NITROGLYCERIN 0.4 MG SL PER TAB CHARGE UT PRN (15:00)
[2018-02-04 15:20] VITALS: BP 131/94; PULSE 69; TEMP 36.9; O2SAT 95
[2018-02-04] MEDS ORDERED: ACETAMINOPHEN 500 MG TAB PO PRN (15:30)
[2018-02-04] MEDS: HYDROmorphone INJ 1 MG/ML SYR IV PRN ×2 (16:01→20:12)
[2018-02-04] MEDS: POTASSIUM CHLORIDE 10 MEQ TABCR PO SCH (17:03)
[2018-02-04 19:21] VITALS: BP 167/88; PULSE 64; TEMP 36.4; O2SAT 96
[2018-02-04] MEDS: TAMSULOSIN HCL 0.4 MG CAP PO SCH (20:13)
[2018-02-04] MEDS: ENOXAPARIN 40 MG/0.4 ML SYR SQ SCH (20:13)
[2018-02-04] MEDS: PANTOprazole SOD 40 MG TAB PO SCH (20:14)
[2018-02-04 23:45] VITALS: BP 137/87; PULSE 63; TEMP 37.1; O2SAT 95
[2018-02-05] MEDS: HYDROmorphone INJ 1 MG/ML SYR IV PRN ×5 (01:31→20:41)
[2018-02-05 04:17] VITALS: BP 131/76; PULSE 60; TEMP 37.1; O2SAT 96
[2018-02-05 07:15] VITALS: BP 138/84; PULSE 61; TEMP 37.1; O2SAT 95
[2018-02-05 08:02] LABS: HEMATOCRIT 42.9 % (42-52); HEMOGLOBIN 14.7 g/dL (14.0-18.0); MEAN CELL VOLUME 87.9 fL (80-100); MEAN CORPUSCULAR HEMOGLOBIN 30.1 pg (25-34); MEAN CORPUSCULAR HGB CONC 34.3 g/dl (32-36); MEAN PLATELET VOLUME 8.8 fL (7.4-10.4); PLATELET COUNT 303 K/uL (130-400); RED CELL DISTRIBUTION WIDTH CV 14.3 % (11.5-14.5); RED CELL DISTRIBUTION WIDTH SD 46.2 fL (36.4-46.3); WHITE BLOOD COUNT 7.44 K/uL (4.8-10.8)
[2018-02-05] MEDS ORDERED: NURSING VERBAL MED ORDER ONE ×2 (08:30→13:30)
[2018-02-05] MEDS: ONDANSETRON INJ 2 MG/ML 2 ML VIAL IV PRN ×2 (08:43→20:40)
[2018-02-05] MEDS: CITALOPRAM 40 MG TAB PO SCH (08:44)
[2018-02-05] MEDS: PANTOprazole SOD 40 MG TAB PO SCH ×2 (08:44→22:12)
[2018-02-05] MEDS: MONTELUKAST SOD 10 MG TAB PO SCH (08:44)
[2018-02-05] MEDS: LISINOPRIL 40 MG TAB PO SCH (08:45)
[2018-02-05] MEDS: HYDROCHLOROTHIAZIDE 50 MG TAB PO SCH (08:45)
[2018-02-05] MEDS: ASPIRIN 81 MG ECTAB PO SCH (08:45)
[2018-02-05] MEDS: BuPROPion XL 300 MG TABCR PO SCH (08:45)
[2018-02-05] MEDS: POTASSIUM CHLORIDE 10 MEQ TABCR PO SCH ×3 (08:46→17:52)
[2018-02-05] MEDS ORDERED: ATORVASTATIN 10 MG TAB PO SCH (09:00)
[2018-02-05] MEDS ORDERED: VERAPAMIL HCL 180 MG TABCR PO SCH (09:00)
[2018-02-05 09:02] LABS: ALBUMIN 3.6 gm/dl (3.4-5.0); ALT/SGPT 50 U/L (12-78); AST/SGOT 26 U/L (15-37); BLOOD UREA NITROGEN 16 mg/dl (7-18); CALCIUM 8.9 mg/dl (8.5-10.1); CARBON DIOXIDE 24 mmol/L (21-32); CREATININE 1.01 mg/dl (0.60-1.40); GLUCOSE 100 mg/dl (70-99); LIPASE 101 U/L (73-393); POTASSIUM 3.7 mmol/L (3.5-5.1); SODIUM 138 mmol/L (136-145); TOTAL PROTEIN 7.5 gm/dl (6.4-8.2)
[2018-02-05 09:08] LABS: ALKALINE PHOSPHATASE 98 U/L (45-117); CHOLESTEROL 160 mg/dl (0-200); LDL CHOLESTEROL CALCULATED 91 mg/dl
[2018-02-05 11:48] VITALS: BP 145/85; PULSE 73; TEMP 36.6; O2SAT 97
--- NOTE | 2018-02-05 12:46 | CARDIOLOGY CONSULTATION ---
DATE OF CONSULTATION: 02/05/2018 INPATIENT CONSULTATION CONSULTATION REQUESTED BY: Dr. Quinn. REASON FOR CONSULTATION: Exertional chest discomfort and shortness of breath. HISTORY OF PRESENT ILLNESS: Mr. Hodge is a 42-year-old gentleman who presented to [facility] on 02/04/2018 with a complaint of chest discomfort that woke him from sleep. He states that it is normal, he ate dinner the night before and then went to bed and woke up at about 2:00 a.m. with significant midsternal chest pressure that radiated to his left arm. It was associated with shortness of breath and mild diaphoresis along with some nausea. The symptoms lasted for a little bit but then resolved on their own and then spontaneously recurred about 4:00 a.m. At that time, he came into the Emergency Department with continued discomfort. He was given sublingual nitroglycerin with resolution of the discomfort. Upon further questioning, the patient states he has been having exertional shortness of breath for some time now. He states that whenever he exerts himself walking any significant distance, he does get winded very easily this can occasionally be associated with chest pressure. He describes it more of a chest heaviness in the center of his chest that resolves with rest. He denies any associated radiation of the discomfort, but it can be associated with palpitations. PAST SURGICAL HISTORY: 1. Partial nephrectomy. 2. Total dental extractions. 3. Hernia repair. 4. Multiple upper endoscopies. 5. Colonoscopy. 6. Cardiac catheterization in 2014 revealing normal coronary arteries. MEDICAL ILLNESSES: 1. History of noncardiac chest pain. 2. Asthma. 3. Morbid obesity. 4. Clear cell renal carcinoma status post partial nephrectomy. 5. GERD. 6. History of PE. 7. Obstructive sleep apnea, on nocturnal CPAP. 8. Asthma. FAMILY HISTORY: Remarkable for a father who suffered a fatal myocardial infarction at age 60. SOCIAL HISTORY: He denies any alcohol, tobacco or recreational drug use. He is and lives at home with his . 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 He does not exercise. REVIEW OF SYSTEMS: As per HPI. All review of systems reviewed and negative at this time. ALLERGIES: 1. PERCOCET. 2. PENICILLIN. 3. KETOROLAC. 4. TRAMADOL. MEDICATIONS AN OUTPATIENT: 1. Verapamil 180 mg daily. 2. Potassium chloride 10 mEq 3 times a day. 3. Hydrochlorothiazide 50 mg daily. 4. Lisinopril 40 mg daily. 5. Atorvastatin 10 mg daily. 6. Wellbutrin daily. 7. Singulair daily. 8. Protonix daily. 9. Flomax daily. 10. Albuterol p.r.n. PHYSICAL EXAMINATION: VITALS: Temperature 36.6, pulse 73, respiratory rate 12, blood pressure 145/85. GENERAL: Awake, alert, oriented x3 in no acute distress. HEENT: Normocephalic, atraumatic. Pupils equal, round react to light and accommodation. Extraocular muscles intact. Anicteric sclerae. Moist mucous membranes. NECK: No JVD or bruit. CARDIOVASCULAR: Regular but distant. Unable to appreciate murmurs, rubs or gallops. PULMONARY: Clear to auscultation bilaterally. No rales, rhonchi, or wheezing. ABDOMEN: Bowel sounds x4, soft. No rebound, guarding, tenderness. No organomegaly. EXTREMITIES: No clubbing, cyanosis or edema. +2 pedal pulses bilaterally. SKIN: Warm and dry. TEST RESULTS: A 12-lead EKG performed in the Emergency Department independently reviewed at this time shows normal sinus rhythm at 66 beats per minute, normal axis, normal intervals, no signs of acute ischemia, normal study. LABORATORY STUDIES OF SIGNIFICANCE: Troponin negative x3. IMPRESSION: 1. Acute chest discomfort, likely gastrointestinal in origin. 2. Dyspnea and chest discomfort with exertion. 3. Obesity. 4. Asthma. 5. Hypertension. RECOMMENDATIONS: Mr. Hodge was counseled that the chest pain that awoke him from sleep does appear to be GI in nature; however, his dyspnea with exertion and chest discomfort with exertion is a little more concerning for a possible ischemia, so we will plan on performing the dobutamine stress echocardiogram in the a.m. and should that come back unremarkable, then no further cardiac testing or intervention will be necessary and treatment for his GI disturbances can be pursued.
--- NOTE | 2018-02-05 12:58 | Progress Note ---
Internal Med Progress Note Date of Service: Feb 05, 2018. Provider Documentation: SUBJECTIVE: Patient complains of nausea, Had episode of vomiting after lunch Have pain and discomfort on the right upper quadrant, and epigastric area No complaint of chest pain, chest discomfort or shortness of breath OBJECTIVE: Vital Signs-as noted below Exam: General-[obese, in moderate discomfort due to nausea and abdominal pain] Eyes-[sclera nonicteric, PERRLA/EOMI] ENT-[moist oral mucosa] Neck-[no JVD, no thyromegaly no carotid bruit] Lungs-[clear to auscultation no wheezes or rales] Heart-[regular S1-S2] Abdomen-positive tenderness in the right upper quadrant, epigastric area, abdomen is soft, positive bowel sounds Extremities-[no lower extremity edema, no rash or deformity] Neuro-[alert awake oriented 3, no focal neurological deficit] Lab data as noted below. ASSESSMENT & PLAN: Nausea vomiting abdominal pain: -Has ongoing epigastric/right upper quadrant discomfort -Has persistent nausea, vomited after lunch -No reported diarrhea, or blood in stool -Labs reviewed: Normal lipase level, normal liver function test -Ordered liquid diet - Zofran as needed for nausea -Right upper quadrant ultrasound to assess gallbladder pathology -Patient reports of severe acid reflux/GERD symptom Patient had a recent swallowing study that demonstrated esophageal dysmotility. Gallbladder imaging in the past, including recent HIDA scan, unremarkable. -Continue on Protonix -GI eval requested CHEST PAIN -Symptom has resolved -Presentation of chest discomfort possible GI related -Has multiple risk factors for ischemic heart disease. -Family history of premature coronary artery disease: Father suffered an AL at a young age. -Cardiology consult appreciated -Scheduled for dobutamine stress test tomorrow morning HYPERTENSION Continue verapamil, lisinopril, and hydrochlorothiazide. OBSTRUCTIVE LUNG DISEASE Pulmonary status stable. Continue usual inhalers. GERD -Worsening of symptom associated with nausea vomiting -Bowel rest, GI eval -No report of dark stool or melena Continue PPI. DYSLIPIDEMIA Continue atorvastatin. MORBID OBESITY AHA diet. VTE PROPHYLAXIS Moderate risk for VTE due to prior history of pulmonary embolism. SQ enoxaparin. Ambulate. DISPOSITION Expected discharge to home. Family Medicine follow-up with Dr. Mya Morales. Vital Signs: Date Time Temp Pulse Resp B/P (MAP) Pulse Ox O2 Delivery O2 Flow Rate FiO2 02/05/18 11:48 36.6 73 22 145/85 (105) 97 Room Air 02/05/18 07:15 37.1 61 20 138/84 (102) 95 Room Air 02/05/18 04:17 37.1 60 20 131/76 (94) 96 Room Air 02/05/18 04:17 Room Air 02/04/18 23:45 Room Air 02/04/18 23:45 37.1 63 20 137/87 (104) 95 Room Air 02/04/18 20:15 Room Air 02/04/18 19:21 36.4 64 18 167/88 (114) 96 Room Air 02/04/18 15:20 36.9 69 18 131/94 (106) 95 Room Air 02/04/18 14:59 Room Air 02/04/18 14:52 65 18 126/78 94 Room Air 02/04/18 13:39 72 18 149/92 94 Room Air Lab Results: Results Past 24 Hours Test 02/04/18 13:45 02/04/18 17:53 02/04/18 23:54 02/05/18 07:35 Range/Units Urine Color YELLOW Urine Appearance CLEAR CLEAR Urine pH 5.0 4.5-7.5 Urine Specific Moss 1.013 1.000-1.030 Urine Protein NEG NEG Urine Glucose (UA) NEG NEG Urine Ketones NEG NEG Urine Occult Blood NEG NEG Urine Nitrite NEG NEG Urine Bilirubin NEG NEG Urine Urobilinogen NEG NEG Urine Leukocyte Esterase NEG NEG Troponin I < 0.015 < 0.015 0-0.045 ng/ml White Blood Count 7.44 4.8-10.8 K/uL Red Blood Count 4.88 4.7-6.1 M/uL Hemoglobin 14.7 14.0-18.0 g/dL Hematocrit 42.9 42-52 % Mean Corpuscular Volume 87.9 80-100 fL Mean Corpuscular Hemoglobin 30.1 25-34 pg Mean Corpuscular Hemoglobin Concent 34.3 32-36 g/dl RDW Standard Deviation 46.2 36.4-46.3 fL RDW Coefficient of Variation 14.3 11.5-14.5 % Platelet Count 303 130-400 K/uL Mean Platelet Volume 8.8 7.4-10.4 fL Sodium Level 138 136-145 mmol/L Potassium Level 3.7 3.5-5.1 mmol/L Chloride Level 103 98-107 mmol/L Carbon Dioxide Level 24 21-32 mmol/L Anion Gap 11.0 3-11 mmol/L Blood Urea Nitrogen 16 7-18 mg/dl Creatinine 1.01 0.60-1.40 mg/dl Est Creatinine Clear Calc Drug Dose 122.4 ml/min Estimated GFR () 104.4 Estimated GFR (Non- 90.0 BUN/Creatinine Ratio 15.9 10-20 Random Glucose 100 70-99 mg/dl Calcium Level 8.9 8.5-10.1 mg/dl Total Bilirubin 0.4 0.2-1 mg/dl Direct Bilirubin < 0.1 0-0.2 mg/dl Aspartate Amino Transf (AST/SGOT) 26 15-37 U/L Alanine Aminotransferase (ALT/SGPT) 50 12-78 U/L Alkaline Phosphatase 98 45-117 U/L Total Protein 7.5 6.4-8.2 gm/dl Albumin 3.6 3.4-5.0 gm/dl Triglycerides Level 148 0-150 mg/dl Cholesterol Level 160 0-200 mg/dl HDL Cholesterol 39 mg/dl LDL Cholesterol, Calculated 91 mg/dl VLDL Cholesterol, Calculated 30 mg/dl Cholesterol/HDL Ratio 4.1 Amylase Level 52 25-115 U/L Lipase 101 73-393 U/L
[2018-02-05] MEDS ORDERED: ONDANSETRON INJ 2 MG/ML 2 ML VIAL IV ONE (13:30)
--- NOTE | 2018-02-05 13:47 | Medical Consult ---
Consultation Note Date of Service Feb 05, 2018. Consultation Note Pt with PMH GERD and morbid obesity admit with single episode of nocturnal chest pain shortly after eating. Seen by cardiology, awaiting DSE. Has recently undergone: Ultrasound in Dec 2017 showing liver steatosis. Uls in 2016 for RUQ pain was normal. CCK HIDA, which was normal; and VFSS that was unremarkable. He had a non con CT at ER on 01/28 that was normal. Had non con CT at [place] which showed ? fat necrosis, o/w WNL. he has had mult abd CTs for abd pain - CT on Aug 2017 with IV contast showed "patulous esophagus containing fluid" o/w WNL. CT in Jun 2017 w/o IV contrast was normal. CT in January 2017 and February 2017 w/o contrast was normal. He had EGDs in 01/2018, 08/2017, 2014 and 2011, all of which have been unremarkable. He is gaining weight over the past 6 months. He does not have anemia, or persistent LFT elevation. Maintained on twice daily PPI. Takes Potassium tablets TID. On baby ASA, o/w no NSAIDs listed on JAN. At present, he continues to have pain; he had episode of emesis today. Nurses report that pt has good appetite. On exam, he appears comfortable. He has a large pannus. He is tender along right costal margin. He reports pain when I lightly touch the skin of his RUQ. He also has pain with deep RUQ palpation, but no r/g. A/P: Persistent abdominal pain with negative w/u and no alarm symptoms - He likely has functional dyspepsia; ddx includes abd wall pain. If stress echo is normal, would consider emptying study and high quality CT with oral and IV contrast. These tests can be done as inpt or outpt. - Although he has risks factors for GB disease, I think the likelihood that he has biliary disease is low. Can consider surgery consult as inpt or outpt. His pain appears chronic, rather than acute; unfortunately, I cannot offer any intervention that will dramatically decrease his pain acutely, and I think he would be best served by continued outpt f.u. Will sign off. Please call us with questions as an inpt.
[2018-02-05 15:20] VITALS: BP 121/74; PULSE 59; TEMP 36.5; O2SAT 95
[2018-02-05 18:53] VITALS: BP 101/67; PULSE 58; TEMP 36.5; O2SAT 96
[2018-02-05] MEDS: ENOXAPARIN 40 MG/0.4 ML SYR SQ SCH (20:41)
[2018-02-05] MEDS: TAMSULOSIN HCL 0.4 MG CAP PO SCH (22:12)
[2018-02-05 23:21] VITALS: BP 106/70; PULSE 59; TEMP 37; O2SAT 95
[2018-02-06] VITALS (10 sets, daily range): BP systolic 91–170; BP diastolic 52–89; PULSE 56–72; TEMP 36.4–37.1; O2SAT 93–96
[2018-02-06] MEDS: ONDANSETRON INJ 2 MG/ML 2 ML VIAL IV PRN (02:22)
[2018-02-06] MEDS: HYDROmorphone INJ 1 MG/ML SYR IV PRN ×4 (02:23→18:36)
--- NOTE | 2018-02-06 07:07 | DIAGNOSTIC IMAGING REPORT ---
ABDOMINAL ULTRASOUND, RIGHT UPPER QUADRANT HISTORY: Nausea/right upper quadrant pain. COMPARISON: Right upper quadrant ultrasound May 16, [address] of the abdomen and pelvis January 31, 2018. FINDINGS: Study is compromised by suboptimal penetration. No hepatic lesions are identified. Hepatic echogenicity is increased. There is no biliary ductal dilatation. The pancreas is obscured due to overlying bowel gas. There is no right hydronephrosis. IMPRESSION: 1. No gallstones or biliary ductal dilatation identified. 2. Study moderately compromised due to suboptimal penetration. Obscured pancreas. 3. Fatty liver. Electronically signed by: Neto Mcgowan M.D. 02/06/2018 7:06 AM Dictated Date/Time: 02/06/2018 7:04 AM
[2018-02-06] MEDS: POTASSIUM CHLORIDE 10 MEQ TABCR PO SCH ×3 (07:30→16:29)
[2018-02-06] MEDS ORDERED: DOBUTamine HCL 12.5 MG/ML 20 ML VIAL ONE (09:32)
[2018-02-06] MEDS ORDERED: METOPROLOL TARTRATE 1 MG/ML VIAL ONE ×2 (09:33)
[2018-02-06] MEDS ORDERED: ATROPINE SULFATE 0.1 MG/ML 5ML SYR ONE ×2 (09:33)
[2018-02-06] MEDS ORDERED: PERFLUTREN LIPID MICROSPHERE (DEFINITY) IV ONE (10:50)
--- NOTE | 2018-02-06 11:15 | DOBUTAMINE ECHO ---
*NOTICE TO RECEIVING REPUBLICAN AGENCY This information is strictly Confidential and protected under [place] law. [place] law prohibits you from making any further disclosure of this information unless further disclosure is expressly permitted by the written consent of the person to whom it pertains or is authorized by law. A general authorization for the release of medical or other information is not sufficient for this purpose. Hospital accepts no responsibility if the information is made available to any other person, INCLUDING THE PATIENT. Interpretation Summary * Name: PETE HULL Study Date: 02/06/2018 07:34 AM BP: 116/55 mmHg * Patient Location: C.2T\S\E221\S\1 HR: 60 * : 1975 (M/d/yyyy) Gender: Male Height: 66 in * Age: 42 yrs Ethnicity: [place] Weight: 300 lb * Ordering Physician: Jose Alberto Castellon * Referring Physician: Self, Referred * Performed By: Cheryl Carlson RDCS * * Reason For Study: CHEST PAIN * BSA: 2.4 m2 * -- Conclusions -- * The resting study was technically difficult due to poor acoustic window, but adequate with the administration of ultrasound contrast. * The left ventricular wall motion is normal at rest. * The LV Ejection Fraction = 60-65%. * No significant valvular heart disease was noted on the resting study. * The stress test was terminated prior to reaching target heart rate due to nausea which was not felt to be an angina symptom. * The ECG response was negative for ischemia. * The echocardiogram portion of the stress test was terminated prematurely due to nausea and could not be completed. * The patient was transferred back to the telemetry floor in stable condition. Procedure Details * DOBUTAMINE ECHO, CPT#[id number] * ECHOEX, CPT #[id number] * ECHO DOPPLER, CPT #[id number] * ECHO COLOR FLOW, CPT #[id number] Left Ventricle * The left ventricle is normal in size. * There is normal left ventricular wall thickness. * Ejection Fraction = 60-65%. * Left ventricular systolic function is normal. * The left ventricular wall motion is normal at rest. Right Ventricle * The right ventricle is normal in size and function. Atria * The left atrial size is normal. * Right atrial size is normal. * No ASD detected; PFO is not assessed. Mitral Valve * The mitral valve is normal. * There is no mitral valve stenosis. * Significant mitral regurgitation is absent. Tricuspid Valve * The tricuspid valve is normal. * There is no tricuspid stenosis. * Significant tricuspid regurgitation is absent. Aortic Valve * The aortic valve is trileaflet. * Aortic stenosis is absent. * No aortic regurgitation is present. Pulmonic Valve * The pulmonic valve is not well visualized. Great Vessels * The aortic root is normal size. Pericardium * There is no pericardial effusion. Stress Parameters * Normal baseline electrocardiogram. * There were no significant arrhythmias. There was transient artifact noted noted when the patient became nauseous and sat up, this was not felt to be an arrhythmia. * The stress ECG response was normal * The stress portion of this study was personally supervised by the undersigned interpreting physician. * Rest heart rate was '60' BPM. * Rest blood pressure was '116/55' * Maximum heart rate achieved was 137 bpm. * Maximum heart rate was 77 % of maximum age-predicted heart rate. * Maximum blood pressure was '236/53' * Maximum Dobutamine infusion rate was '40' mcg/kg/min. * A total of 2.5 mg of IV Metoprolol was administered to reverse Dobutamine-induced tachycardia. * DOBUTAMINE Test stopped due to nausea Left Ventricular Diastolic Function * Grade I diastolic dysfunction, (abnormal relaxation pattern). MMode 2D Measurements and Calculations IVSd 1.1 cm IVSs 1.7 cm LVIDd 4.4 cm LVIDs 3.0 cm LVPWd 1.4 cm LVPWs 1.7 cm IVS/LVPW 0.76 FS 30.9 % EDV(Teich) 87.3 ml ESV(Teich) 36.0 ml EF(Teich) 58.8 % EDV(cubed) 84.7 ml ESV(cubed) 27.9 ml EF(cubed) 67.0 % % IVS thick 56.6 % % LVPW thick 18.8 % LV mass(C)d 207.5 grams LV mass(C)dI 87.3 grams/m\S\2 LV mass(C)s 202.6 grams LV mass(C)sI 85.3 grams/m\S\2 SV(Teich) 51.3 ml SI(Teich) 21.6 ml/m\S\2 SV(cubed) 56.8 ml SI(cubed) 23.9 ml/m\S\2 Ao root diam 3.2 cm Ao root area 8.1 cm\S\2 LA dimension 4.1 cm LA/Ao 1.3 LVAd ap4 44.6 cm\S\2 LVLd ap4 10.5 cm EDV(MOD-sp4) 159.6 ml EDV(sp4-el) 160.8 ml LVAs ap4 24.7 cm\S\2 LVLs ap4 7.9 cm ESV(MOD-sp4) 64.3 ml ESV(sp4-el) 65.6 ml EF(MOD-sp4) 59.7 % EF(sp4-el) 59.2 % LVAd ap2 33.9 cm\S\2 LVLd ap2 9.0 cm EDV(MOD-sp2) 104.2 ml EDV(sp2-el) 108.3 ml LVAs ap2 20.4 cm\S\2 LVLs ap2 7.4 cm ESV(MOD-sp2) 45.5 ml ESV(sp2-el) 47.5 ml EF(MOD-sp2) 56.3 % EF(sp2-el) 56.2 % LVLd %diff -16.39 % EDV(MOD-bp) 138.1 ml LVLs %diff -6.51 % ESV(MOD-bp) 55.6 ml EF(MOD-bp) 59.7 % SV(MOD-sp4) 95.3 ml SI(MOD-sp4) 40.1 ml/m\S\2 SV(MOD-sp2) 58.7 ml SI(MOD-sp2) 24.7 ml/m\S\2 SV(MOD-bp) 82.4 ml SI(MOD-bp) 34.7 ml/m\S\2 SV(sp4-el) 95.2 ml SI(sp4-el) 40.1 ml/m\S\2 SV(sp2-el) 60.8 ml SI(sp2-el) 25.6 ml/m\S\2 Doppler Measurements and Calculations MV E max pola 87.3 cm/sec MV A max pola 73.2 cm/sec MV E/A 1.2 MV dec time 0.28 sec Ao V2 max 151.5 cm/sec Ao max PG 9.2 mmHg Ao max PG (full) 5.1 mmHg LV V1 max PG 4.0 mmHg LV V1 max 100.5 cm/sec
[2018-02-06] MEDS: PANTOprazole SOD 40 MG TAB PO SCH ×2 (13:14→20:25)
[2018-02-06] MEDS: MONTELUKAST SOD 10 MG TAB PO SCH (13:14)
[2018-02-06] MEDS: LISINOPRIL 40 MG TAB PO SCH (13:14)
[2018-02-06] MEDS: HYDROCHLOROTHIAZIDE 50 MG TAB PO SCH (13:15)
[2018-02-06] MEDS: ASPIRIN 81 MG ECTAB PO SCH (13:15)
[2018-02-06] MEDS: CITALOPRAM 40 MG TAB PO SCH (13:15)
[2018-02-06] MEDS: BuPROPion XL 300 MG TABCR PO SCH (13:15)
--- NOTE | 2018-02-06 14:24 | Discharge Instructions ---
Discharge Instructions Date of Service Feb 06, 2018. Admission Reason for Admission: Chest Pain Discharge Discharge Diagnosis / Problem: CHEST DISCOMFORT /DUE TO GERD /ACID REFLUX Discharge Goals Goal(s): Decrease discomfort, Improve function, Increase independence, Improve disease control, Learn about illness, Diagnostic testing, Therapeutic intervention Activity Recommendations Activity Limitations: resume your previous activity . Instructions / Follow-Up Instructions / Follow-Up Hospital follow-up: 02/10/2018 10:30 AM Mya Galvan DO Family Practice [facility] Cardiology follow-up: 02/07/2018 10:30 AM Wilfrid Miranda DO Cardiology, [facility] Current Hospital Diet Patient's current hospital diet: Clear Liquid Diet Discharge Diet Recommended Diet: AHA Diet (Heart Healthy) Pending Studies Studies pending at discharge: no Laboratory Results Lipid Panel Test 02/05/18 07:35 Range/Units Triglycerides Level 148 0-150 mg/dl Cholesterol Level 160 0-200 mg/dl HDL Cholesterol 39 mg/dl Cholesterol/HDL Ratio 4.1 LDL Cholesterol, Calculated 91 mg/dl Medical Emergencies . Who to Call and When: Medical Emergencies: If at any time you feel your situation is an emergency, please call 911 immediately. . Non-Emergent Contact Non-Emergency issues call your: Primary Care Provider . . "Provider Documentation" section prepared by Evelyn Castellanos. .
--- NOTE | 2018-02-06 14:47 | Cardiology Follow-Up ---
Subjective General Date of Service: Feb 06, 2018. Chief Complaint: follow up chest pain Pt evaluation today including: conversation w/ patient, conversation w/ family , physical exam History of Present Illness The patient is a 42 year old male seen in follow up. Patient with continued chest pain, atypical in character for cardiac discomfort. Current complaint is nausea. Dobutamine stress terminated due to nausea, unable to complete study. Patient states he is unable to eat the liquid diet. Allergies Coded Allergies: Oxycodone (Verified Allergy, Severe, THROAT SWELLED UP, HARD TIME BREATHING, 02/04/18) GI UPSET, CONSTIPATION Penicillins (Verified Allergy, Severe, THROAT SWELLING, 02/04/18) Ketorolac (Verified Allergy, Intermediate, UPSET STOMACH/ ITCHY, 02/04/18) Tramadol (Verified Allergy, Intermediate, RASH, UPSET STOMACH, 02/04/18) Social History Smoking Status: Never Smoker Hx Tobacco Use In Past Year?: No Hx Alcohol Use - Type And Amou: No Hx Substance Use - Type And Am: No Problem List Medical Problems: (1) Abdominal pain Status: Acute (2) Bleeding gums Status: Acute (3) Cough Status: Acute (4) Fall Status: Acute (5) Foot sprain Status: Acute (6) Left elbow pain Status: Acute (7) Left sided chest pain Status: Acute (8) Rib pain on left side Status: Acute (9) Rib pain on left side Status: Acute (10) Suprapubic abdominal pain Status: Acute (11) URI (upper respiratory infection) Status: Acute Social History Problems: (1) S/P tooth extraction Status: Acute Physical Exam Vital Signs Last Vital Signs Documentation Date Time Temp Pulse Resp B/P (MAP) Pulse Ox O2 Delivery O2 Flow Rate FiO2 02/06/18 12:05 Room Air 02/06/18 10:55 37.0 65 20 117/70 (86) 94 Physical Exam Psychiatric: Mental Status: active & alert, normal mood Neck: supple, trachea midline Lungs: Auscultation: no wheezing, no rales/crackles, no rhonchi Cardiovascular: Heart Auscultation: RRR, no murmurs, no rubs Extremities: no edema Neurologic: Gait & Station: pertinent finding (no focal deficits ) Assessment and Plan Assessment and Plan Impression: Atypical chest pain Morbid obesity, BMI 47 kg/m2 Nausea Plan; Pt with longstanding h/o atypical chest pain. Had ongoing chest pain after non ischemic stress test in 2014, and follow up cath in 2014 revealed normal coronaries. Had another DSE in 08/2017, with no evidence of ischemia. At present will proceed with lexiscan stress. Will need 2 day study due to size. GI input noted and appreciated.
[2018-02-06] MEDS ORDERED: SODIUM CHLORIDE 0.9% 1000ML 1,000 ML IV SCH (15:30)
--- NOTE | 2018-02-06 15:30 | Progress Note ---
Internal Med Progress Note Date of Service: Feb 06, 2018. Provider Documentation: SUBJECTIVE: Patient had dobutamine stress test earlier today Unable to complete stress test secondary to nausea Scheduled for nuclear stress test tomorrow At present does not have any nausea, no vomiting No complaint of chest heaviness, chest discomfort or shortness of breath Diet advanced to [facility] ,tolerating well Reports of feeling dizzy and lightheaded when standing up, or walking to bathroom No episode of syncope OBJECTIVE: Vital Signs-as noted below Exam: General-obese no sign of discomfort Eyes-[sclera nonicteric, PERRLA/EOMI] ENT-[moist oral mucosa] Neck-[no JVD, no thyromegaly no carotid bruit] Lungs-[clear to auscultation no wheezes or rales] Heart-[regular S1-S2] Abdomen-soft nontender, bowel sounds active Extremities-[no lower extremity edema, no rash or deformity] Neuro-[alert awake oriented 3, no focal neurological deficit] Lab data as noted below. ASSESSMENT & PLAN: Nausea vomiting abdominal pain: -Patient had chronic symptom of nausea Gallbladder ultrasound shows: No gallstones or biliary ductal dilatation Fatty liver Appreciate input from GI Had multiple GI imaging, study done-inconclusive report Patient had EGD in 2011, 2014, 08/2017, 01/2018-for ongoing GI discomfort/nausea- all of the endoscopic results have been unremarkable -Per GI patient should continue with PPI and H2 murphy for acid reflux May need outpatient gastric emptying study -For persistent symptoms, may benefit with outpatient surgical consult for possible gallbladder disease -Liver/gallbladder ultrasound, negative for disease HIDA scan done in 2015 was negative CHEST PAIN -Symptom has resolved -Presentation of chest discomfort possible GI related -Has multiple risk factors for ischemic heart disease. -Family history of premature coronary artery disease: Father suffered an CA at a young age. -Cardiology consult appreciated -Dobutamine stress echo today: The left ventricular wall motion is normal at rest LV ejection fraction 60-65%. No significant valvular heart disease was noted on the resting study. The stress test was terminated prior to reaching target heart rate due to nausea which was not felt to be an angina symptom. ECG response was negative for ischemia. The echocardiogram portion of the stress test was terminated prematurely due to nausea and could not be completed. -Scheduled for nuclear stress test tomorrow, given patient's body habitus may need to do test HYPERTENSION -Mentions of feeling dizzy on lightheaded when standing up -Ordered for orthostatic vitals, gentle IV fluids Continue to monitor in telemetry OBSTRUCTIVE LUNG DISEASE Pulmonary status stable. Continue usual inhalers. GERD -Worsening of symptom associated with nausea vomiting -Bowel rest, GI eval -No report of dark stool or melena Continue PPI. Had multiple EGD in the past -were unremarkable DYSLIPIDEMIA Continue atorvastatin. MORBID OBESITY AHA diet. VTE PROPHYLAXIS Moderate risk for VTE due to prior history of pulmonary embolism. SQ enoxaparin. Ambulate. DISPOSITION Patient reports of having gait disturbance/balance issue -fell when trying to get out of bathtub at least twice last week -PT OT eval requested - mentions he feels much comfortable using the rolling walker in the hospital Prescription for rolling walker placed in the chart pillowcase cleaner updated Expected discharge to home Family Medicine follow-up with Dr. Mya Morales. Vital Signs: Date Time Temp Pulse Resp B/P (MAP) Pulse Ox O2 Delivery O2 Flow Rate FiO2 02/06/18 12:05 Room Air 02/06/18 10:55 37.0 65 20 117/70 (86) 94 02/06/18 08:05 Room Air 02/06/18 07:23 36.4 61 20 91/52 (65) 94 Room Air 02/06/18 04:45 Room Air 02/06/18 03:36 37.1 56 18 91/55 (67) 93 Room Air 02/05/18 23:21 37.0 59 20 106/70 (82) 95 Room Air 02/05/18 23:15 Room Air 02/05/18 20:41 Room Air 02/05/18 18:53 36.5 58 18 101/67 (78) 96 Room Air 02/05/18 16:00 Room Air
[2018-02-06] MEDS: TAMSULOSIN HCL 0.4 MG CAP PO SCH (20:26)
[2018-02-06] MEDS: ENOXAPARIN 40 MG/0.4 ML SYR SQ SCH (20:26)
[2018-02-07] VITALS (12 sets, daily range): BP systolic 100–133; BP diastolic 56–79; PULSE 60–80; TEMP 36.5–37.2; O2SAT 93–97
[2018-02-07] MEDS: ONDANSETRON INJ 2 MG/ML 2 ML VIAL IV PRN ×2 (00:06→15:09)
[2018-02-07] MEDS: HYDROmorphone INJ 1 MG/ML SYR IV PRN ×4 (00:44→20:43)
[2018-02-07] MEDS ORDERED: REGADENOSON 0.4 MG/5 ML SYR ONE (08:24)
--- NOTE | 2018-02-07 09:34 | Cardiology Follow-Up ---
Subjective General Date of Service: Feb 07, 2018. Chief Complaint: follow up chest pain Pt evaluation today including: conversation w/ patient, physical exam History of Present Illness The patient is a 42 year old male seen in cardiology follow-up prior to, during , and post pharmacologic nuclear stress test. Patient states that his nausea was improved and is able to tolerate some food overnight. Chest discomfort was improved. Allergies Coded Allergies: Oxycodone (Verified Allergy, Severe, THROAT SWELLED UP, HARD TIME BREATHING, 02/04/18) GI UPSET, CONSTIPATION Penicillins (Verified Allergy, Severe, THROAT SWELLING, 02/04/18) Ketorolac (Verified Allergy, Intermediate, UPSET STOMACH/ ITCHY, 02/04/18) Tramadol (Verified Allergy, Intermediate, RASH, UPSET STOMACH, 02/04/18) Social History Smoking Status: Never Smoker Hx Tobacco Use In Past Year?: No Hx Alcohol Use - Type And Amou: No Hx Substance Use - Type And Am: No Problem List Medical Problems: (1) Abdominal pain Status: Acute (2) Bleeding gums Status: Acute (3) Cough Status: Acute (4) Fall Status: Acute (5) Foot sprain Status: Acute (6) Left elbow pain Status: Acute (7) Left sided chest pain Status: Acute (8) Rib pain on left side Status: Acute (9) Rib pain on left side Status: Acute (10) Suprapubic abdominal pain Status: Acute (11) URI (upper respiratory infection) Status: Acute Social History Problems: (1) S/P tooth extraction Status: Acute Physical Exam Vital Signs Last Vital Signs Documentation Date Time Temp Pulse Resp B/P (MAP) Pulse Ox O2 Delivery O2 Flow Rate FiO2 02/07/18 08:00 36.5 65 20 120/76 (91) 96 Room Air Physical Exam Psychiatric: Mental Status: active & alert, normal mood Neck: supple, trachea midline Lungs: Auscultation: no wheezing, no rales/crackles, no rhonchi Cardiovascular: Heart Auscultation: RRR, no murmurs, no rubs Extremities: no edema Neurologic: Gait & Station: pertinent finding (no focal deficits ) Assessment and Plan Assessment and Plan Patient underwent pharmacologic nuclear stress test today receiving the Lexiscan administration, and stress images. Because of his size, this is a 2 day protocol. EKG response to pharmacologic stress was normal. The blood pressure and heart rate response to pharmacologic stress were normal. Will await day 2 images due 02/08. Impression: Atypical chest pain Morbid obesity, BMI 47 kg/m2 Nausea Plan; Pt with longstanding h/o atypical chest pain. Had ongoing chest pain after non ischemic stress test in 2014, and follow up cath in 2014 revealed normal coronaries. Had another DSE in 08/2017, with no evidence of ischemia. Continue evaluation/treatment of what I feel is noncardiac nausea. Await D2 of nuclear stress test due tomorrow, 02/08.
[2018-02-07] MEDS: ASPIRIN 81 MG ECTAB PO SCH (10:51)
[2018-02-07] MEDS: CITALOPRAM 40 MG TAB PO SCH (10:51)
[2018-02-07] MEDS: POTASSIUM CHLORIDE 10 MEQ TABCR PO SCH ×3 (10:51→18:59)
[2018-02-07] MEDS: HYDROCHLOROTHIAZIDE 50 MG TAB PO SCH (10:51)
[2018-02-07] MEDS: LISINOPRIL 40 MG TAB PO SCH (10:52)
[2018-02-07] MEDS: PANTOprazole SOD 40 MG TAB PO SCH ×2 (10:52→20:44)
[2018-02-07] MEDS: MONTELUKAST SOD 10 MG TAB PO SCH (10:52)
[2018-02-07] MEDS: BuPROPion XL 300 MG TABCR PO SCH (10:53)
--- NOTE | 2018-02-07 17:34 | Progress Note ---
Subjective Date of Service: Feb 07, 2018. Subjective Pt evaluation today including: conversation w/ patient, physical exam, lab review, review of studies, review of inpatient medication list Saw/examined the patient in room 221 He's doing okay, initial portion of the Lexiscan performed states that the Darryl works for pain had a hiatal hernia repair in December, occasionally gets reflux Problem List Medical Problems: (1) Abdominal pain Status: Acute (2) Bleeding gums Status: Acute (3) Cough Status: Acute (4) Fall Status: Acute (5) Foot sprain Status: Acute (6) Left elbow pain Status: Acute (7) Left sided chest pain Status: Acute (8) Rib pain on left side Status: Acute (9) Rib pain on left side Status: Acute (10) Suprapubic abdominal pain Status: Acute (11) URI (upper respiratory infection) Status: Acute Social History Problems: (1) S/P tooth extraction Status: Acute Review of Systems Respiratory: No cough, No sputum, No shortness of breath Cardiac: + chest pain, No edema, No palpitations Abdomen: + problem reported (reflux), No pain, No nausea, No vomiting, No diarrhea Medications Current Inpatient Medications Medications (Trade) Dose Ordered Sig/Edouard Route Start Time Stop Time Status Last Admin Dose Admin Acetaminophen (Tylenol Tab) 650 mg Q4H PRN PO 02/04/18 14:15 03/06/18 14:14 Al Hydrox/Mg Hydrox/Simethicone (Maalox Max Susp) 15 ml Q4H PRN PO 02/04/18 14:15 03/06/18 14:14 Nitroglycerin (Nitrostat Tab) 0.4 mg UD PRN SL 02/04/18 14:15 03/06/18 14:14 Miscellaneous (Iv Fluids Completed) 1 ea PRN PRN N/A 02/04/18 15:00 02/04/19 14:59 02/07/18 03:56 1 EA Albuterol (Ventolin Hfa Inhaler) 2 puffs Q4 PRN INH 02/04/18 15:00 03/06/18 14:59 Aspirin (Ecotrin Tab) 81 mg QAM PO 02/05/18 09:00 03/07/18 08:59 02/07/18 10:51 81 MG Atorvastatin Calcium (Lipitor Tab) 10 mg QAM PO 02/05/18 09:00 03/07/18 08:59 Future Hold 02/05/18 08:44 10 MG Bupropion HCl (Wellbutrin-Xl Tab) 300 mg QAM PO 02/05/18 09:00 03/07/18 08:59 02/07/18 10:53 300 MG Citalopram Hydrobromide (celeXA TAB) 40 mg QAM PO 02/05/18 09:00 03/07/18 08:59 02/07/18 10:51 40 MG Hydrochlorothiazide (Hydrochlorothiazide Tab) 50 mg QAM PO 02/05/18 09:00 03/07/18 08:59 02/07/18 10:51 50 MG Lisinopril (Zestril Tab) 40 mg QAM PO 02/05/18 09:00 03/07/18 08:59 02/07/18 10:52 40 MG Montelukast Sodium (Singulair Tab) 10 mg QAM PO 02/05/18 09:00 03/07/18 08:59 02/07/18 10:52 10 MG Nitroglycerin (Nitrostat Tab) 0.4 mg UD PRN UT 02/04/18 15:00 03/06/18 14:59 Pantoprazole Sodium (Protonix Tab) 40 mg BID PO 02/04/18 21:00 03/06/18 20:59 02/07/18 10:52 40 MG Potassium Chloride (Klor-Con M10) 10 meq TIDM PO 02/04/18 16:45 03/06/18 17:59 02/07/18 10:51 10 MEQ Tamsulosin HCl (Flomax Cap) 0.4 mg HS PO 02/04/18 21:00 03/06/18 20:59 02/06/18 20:26 0.4 MG Verapamil HCl (Calan-Sr Tab) 180 mg QAM PO 02/05/18 09:00 03/07/18 08:59 Future Hold 02/05/18 08:45 180 MG Hydromorphone HCl (Dilaudid Inj) 1 mg Q4H PRN IV 02/04/18 15:30 02/18/18 15:29 02/07/18 15:09 1 MG Acetaminophen (Tylenol Tab) 1,000 mg Q8 PRN PO 02/04/18 15:30 03/06/18 15:29 Enoxaparin Sodium (Lovenox Inj) 40 mg HS SQ 02/04/18 21:00 03/06/18 20:59 02/06/18 20:26 40 MG Ondansetron HCl (Zofran Inj) 4 mg Q6H PRN IV 02/05/18 08:45 03/07/18 08:44 02/07/18 15:09 4 MG Objective Vital Signs Date Time Temp Pulse Resp B/P (MAP) Pulse Ox O2 Delivery O2 Flow Rate FiO2 02/07/18 16:11 72 20 108/68 (81) 94 Room Air 02/07/18 16:10 66 20 126/76 (93) 96 02/07/18 16:08 36.6 60 20 110/68 (82) 95 Room Air 02/07/18 12:00 36.9 65 18 108/61 (77) 95 Room Air 02/07/18 12:00 Room Air 02/07/18 08:00 36.5 65 20 120/76 (91) 96 Room Air 02/07/18 08:00 Room Air 02/07/18 08:00 36.5 65 18 133/79 (97) 97 Room Air 02/07/18 08:00 60 123/73 (90) Room Air 02/07/18 04:19 37.0 68 20 100/56 (71) 95 Room Air 02/07/18 04:00 95 Room Air 02/07/18 00:01 94 Room Air 02/06/18 23:22 36.9 62 20 128/70 (89) 95 Room Air 69 160/82 (108) 71 170/89 (116) 02/06/18 20:01 37.1 59 20 102/62 (75) 94 Room Air 02/06/18 20:00 94 Room Air Physical Exam General Appearance: no apparent distress, + obese Respiratory/Chest: lungs clear, normal breath sounds, no respiratory distress, no accessory muscle use Cardiovascular: regular rate, rhythm, no edema, no murmur Extremities: normal inspection, no pedal edema Neurologic/Psychiatric: no motor/sensory deficits, alert, normal mood/affect Assessment and Plan This is a 42 year old male with a PMH of morbid obesity, HTN, HLD, hx. of renal cell carcinoma, hx. of PE, recent hiatal hernia repair - presents with substernal chest pain Chest Pain * unlikely cardiac in nature as per cardiology * failed dobutamine stress secondary to nausea * has had cardiac cath in 2014 and multiple stress tests afterwards which have been negative * two day nuclear stress test pending Abdominal Pain * inguinal hernia repair in December * no acute issues noted; possibly reflux related chest pain/abdominal pain * continue PPI BID and may possible add an H2 murphy * can add Carafate if persistent * will wean off of Dilaudid after stress test is performed * states he is able to take Sunman with no allergic reaction HTN * monitor blood pressure and orthostatics * holding CCB, continue Lisinopril and HCTZ for now COPD, likely Obesity Hypoventilation * Pulmonary status stable. * Continue usual inhalers. HLD * Continue atorvastatin Morbid Obesity * AHA diet DVT ppx * Lovenox likely will return home in 1-2 days
[2018-02-07] MEDS: ENOXAPARIN 40 MG/0.4 ML SYR SQ SCH (20:43)
[2018-02-07] MEDS: TAMSULOSIN HCL 0.4 MG CAP PO SCH (20:44)
[2018-02-08] VITALS (11 sets, daily range): BP systolic 106–124; BP diastolic 63–81; PULSE 61–84; TEMP 36.6–37.1; O2SAT 92–97
[2018-02-08] MEDS: HYDROmorphone INJ 1 MG/ML SYR IV PRN ×4 (01:11→17:17)
[2018-02-08 05:44] LABS: HEMATOCRIT 39.7 % (42-52); HEMOGLOBIN 13.4 g/dL (14.0-18.0); MEAN CELL VOLUME 88.8 fL (80-100); MEAN CORPUSCULAR HGB CONC 33.8 g/dl (32-36); MEAN PLATELET VOLUME 8.9 fL (7.4-10.4); PLATELET COUNT 244 K/uL (130-400); RED CELL DISTRIBUTION WIDTH CV 14.3 % (11.5-14.5); RED CELL DISTRIBUTION WIDTH SD 46.6 fL (36.4-46.3); WHITE BLOOD COUNT 7.89 K/uL (4.8-10.8)
[2018-02-08 06:14] LABS: CALCIUM 8.3 mg/dl (8.5-10.1); CREATININE 1.29 mg/dl (0.60-1.40); POTASSIUM 3.6 mmol/L (3.5-5.1)
[2018-02-08] MEDS: HYDROCHLOROTHIAZIDE 50 MG TAB PO SCH (08:18)
[2018-02-08] MEDS: ONDANSETRON INJ 2 MG/ML 2 ML VIAL IV PRN ×2 (08:18→17:17)
[2018-02-08] MEDS: PANTOprazole SOD 40 MG TAB PO SCH ×2 (08:18→21:04)
[2018-02-08] MEDS: CITALOPRAM 40 MG TAB PO SCH (08:18)
[2018-02-08] MEDS: BuPROPion XL 300 MG TABCR PO SCH (08:18)
[2018-02-08] MEDS: ASPIRIN 81 MG ECTAB PO SCH (08:18)
[2018-02-08] MEDS: POTASSIUM CHLORIDE 10 MEQ TABCR PO SCH ×3 (08:18→17:17)
[2018-02-08] MEDS: LISINOPRIL 40 MG TAB PO SCH (08:18)
[2018-02-08] MEDS: MONTELUKAST SOD 10 MG TAB PO SCH (08:18)
--- NOTE | 2018-02-08 16:48 | Cardiology Follow-Up ---
Subjective General Date of Service: Feb 08, 2018. Chief Complaint: follow up chest pain Pt evaluation today including: conversation w/ patient, physical exam History of Present Illness The patient is a 42 year old male seen in follow up. He continues with nausea, and mild abdominal tenderness. No symptoms suggestive of angina. Allergies Coded Allergies: Oxycodone (Verified Allergy, Severe, THROAT SWELLED UP, HARD TIME BREATHING, 02/04/18) GI UPSET, CONSTIPATION Penicillins (Verified Allergy, Severe, THROAT SWELLING, 02/04/18) Ketorolac (Verified Allergy, Intermediate, UPSET STOMACH/ ITCHY, 02/04/18) Tramadol (Verified Allergy, Intermediate, RASH, UPSET STOMACH, 02/04/18) Social History Smoking Status: Never Smoker Hx Tobacco Use In Past Year?: No Hx Alcohol Use - Type And Amou: No Hx Substance Use - Type And Am: No Problem List Medical Problems: (1) Abdominal pain Status: Acute (2) Bleeding gums Status: Acute (3) Cough Status: Acute (4) Fall Status: Acute (5) Foot sprain Status: Acute (6) Left elbow pain Status: Acute (7) Left sided chest pain Status: Acute (8) Rib pain on left side Status: Acute (9) Rib pain on left side Status: Acute (10) Suprapubic abdominal pain Status: Acute (11) URI (upper respiratory infection) Status: Acute Social History Problems: (1) S/P tooth extraction Status: Acute Physical Exam Vital Signs Last Vital Signs Documentation Date Time Temp Pulse Resp B/P (MAP) Pulse Ox O2 Delivery O2 Flow Rate FiO2 02/08/18 16:24 93 Room Air 02/08/18 15:58 37.0 62 20 120/72 (88) 110/69 (83) 110/71 (84) Physical Exam Psychiatric: Mental Status: active & alert, normal mood Neck: supple, trachea midline Lungs: Auscultation: no wheezing, no rales/crackles, no rhonchi Cardiovascular: Heart Auscultation: RRR, no murmurs, no rubs Extremities: no edema Neurologic: Gait & Station: pertinent finding (no focal deficits ) Assessment and Plan Assessment and Plan Pharm nuclear stress negative for ischemia. Impression: Atypical chest pain- negative 2 day nuclear stress resulted today, 02/08, past negative cath 2014 Morbid obesity, BMI 47 kg/m2 Nausea Plan; Non cardiac symptoms. Differ further workup to primary service. Laboratory Results Last 24 Hours Test 02/08/18 05:21 White Blood Count 7.89 K/uL Red Blood Count 4.47 M/uL Hemoglobin 13.4 g/dL Hematocrit 39.7 % Mean Corpuscular Volume 88.8 fL Mean Corpuscular Hemoglobin 30.0 pg Mean Corpuscular Hemoglobin Concent 33.8 g/dl RDW Standard Deviation 46.6 fL RDW Coefficient of Variation 14.3 % Platelet Count 244 K/uL Mean Platelet Volume 8.9 fL Sodium Level 135 mmol/L Potassium Level 3.6 mmol/L Chloride Level 99 mmol/L Carbon Dioxide Level 31 mmol/L Anion Gap 6.0 mmol/L Blood Urea Nitrogen 20 mg/dl Creatinine 1.29 mg/dl Est Creatinine Clear Calc Drug Dose 95.2 ml/min Estimated GFR () 77.6 Estimated GFR (Non- 67.0 BUN/Creatinine Ratio 15.4 Random Glucose 94 mg/dl Calcium Level 8.3 mg/dl
--- NOTE | 2018-02-08 16:51 | MYOCARDIAL PERFUSION SCAN ---
CARDIOLITE LEXISCAN STRESS TEST WORK TYPE: 321. This is a 2-day protocol study performed on 02/07/2018 and 02/08/2018. INDICATION: Chest discomfort. ORDERING PROVIDER: Milton Garrison DO. TECHNIQUE: For the stress portion of the study, 25 mCi of Technetium 99 m Cardiolite IV was injected at 9:20 a.m. on 02/07/2018. Thirty minutes following the injection, imaging of the heart was performed in multiple projection. For the rest portion of the study, 24.1 mCi of Technetium 99 m Cardiolite was injected IV at 10:25 a.m. on 02/08/2018. One hour following the injection, imaging of the heart was performed in the same projections. STRESS TEST: The patient underwent pharmacologic stress testing receiving 0.4 mg of IV Lexiscan. The patient had transient shortness of breath and dyspepsia that resolved early in the post-pharmacologic stress recovery interval. The resting heart rate of 67 beats per minute radha to a maximal heart rate of 101 beats per minute. This value represents 57% of the maximal age predicted heart rate. The resting blood pressure of 104/49, radha to a maximum blood pressure of 136/84 mmHg. The stress test was stopped due to the end of the pharmacologic protocol. The heart rate and blood pressure responses to pharmacologic stress where appropriate. ECHOCARDIOGRAM: Baseline EKG revealed sinus rhythm at 63 beats per minute with nonspecific T-wave flattening in the lateral precordial leads. The EKG response to pharmacologic stress was negative for ischemia with no new ST-segment changes. Rare occasional PVCs were noted on the stress EKG. PATIENT FINDINGS: Stress imaging revealed a small sized perfusion defect limited to the basal aspect of the inferior wall with normal perfusion to the remaining myocardial segments. Resting SPECT images reveal persistent small size perfusion defect, noted at the basal portion of the inferior wall. Gated SPECT images revealed diffuse photopenia with calculated ejection fraction of 36%. FINAL IMPRESSION: There is a small sized fixed perfusion defect limited to the basal portion of the inferior wall. In light of the appearance of the raw data, this was felt to be attenuation artifact. There is normal perfusion to the remaining myocardial segments. There is no evidence of inducible ischemia. Gated SPECT images are limited by artifact related to the patient's body habitus. Although, the calculated left ventricular ejection fraction was moderately reduced at 36%, this is felt to not be a technically reliable measurement of the ejection fraction, as the patient recently had a transthoracic echocardiogram which I had previously reviewed with normal resting left ventricular ejection fraction. The EKG response to pharmacologic stress is normal. The heart rate and blood pressure response to pharmacological stress was normal. It was felt that the stress test is consistent with a very low likelihood of hemodynamically significant coronary artery disease.
[2018-02-08] MEDS ORDERED: HYDROCODONE/ACETAMIN 5/325MG TAB PO PRN (17:30)
--- NOTE | 2018-02-08 17:30 | Progress Note ---
Subjective Date of Service: Feb 08, 2018. Subjective Pt evaluation today including: conversation w/ patient, physical exam, lab review, review of studies, review of inpatient medication list Saw/examined the patient in room 221 c/o RLQ abdominal pain chest pain has improved, no shortness of breath nuclear stress test performed and negative Problem List Medical Problems: (1) Abdominal pain Status: Acute (2) Bleeding gums Status: Acute (3) Cough Status: Acute (4) Fall Status: Acute (5) Foot sprain Status: Acute (6) Left elbow pain Status: Acute (7) Left sided chest pain Status: Acute (8) Rib pain on left side Status: Acute (9) Rib pain on left side Status: Acute (10) Suprapubic abdominal pain Status: Acute (11) URI (upper respiratory infection) Status: Acute Social History Problems: (1) S/P tooth extraction Status: Acute Review of Systems Constitutional: No fever, No chills Respiratory: No cough, No shortness of breath Cardiac: No chest pain, No edema, No palpitations Abdomen: + pain, No nausea, No vomiting, No diarrhea, No constipation Medications Current Inpatient Medications Medications (Trade) Dose Ordered Sig/Edouard Route Start Time Stop Time Status Last Admin Dose Admin Acetaminophen (Tylenol Tab) 650 mg Q4H PRN PO 02/04/18 14:15 03/06/18 14:14 Al Hydrox/Mg Hydrox/Simethicone (Maalox Max Susp) 15 ml Q4H PRN PO 02/04/18 14:15 03/06/18 14:14 Nitroglycerin (Nitrostat Tab) 0.4 mg UD PRN SL 02/04/18 14:15 03/06/18 14:14 Miscellaneous (Iv Fluids Completed) 1 ea PRN PRN N/A 02/04/18 15:00 02/04/19 14:59 02/07/18 03:56 1 EA Albuterol (Ventolin Hfa Inhaler) 2 puffs Q4 PRN INH 02/04/18 15:00 03/06/18 14:59 Aspirin (Ecotrin Tab) 81 mg QAM PO 02/05/18 09:00 03/07/18 08:59 02/08/18 08:18 81 MG Atorvastatin Calcium (Lipitor Tab) 10 mg QAM PO 02/05/18 09:00 03/07/18 08:59 Future Hold 02/05/18 08:44 10 MG Bupropion HCl (Wellbutrin-Xl Tab) 300 mg QAM PO 02/05/18 09:00 03/07/18 08:59 02/08/18 08:18 300 MG Citalopram Hydrobromide (celeXA TAB) 40 mg QAM PO 02/05/18 09:00 03/07/18 08:59 02/08/18 08:18 40 MG Hydrochlorothiazide (Hydrochlorothiazide Tab) 50 mg QAM PO 02/05/18 09:00 03/07/18 08:59 02/08/18 08:18 50 MG Lisinopril (Zestril Tab) 40 mg QAM PO 02/05/18 09:00 03/07/18 08:59 02/08/18 08:18 40 MG Montelukast Sodium (Singulair Tab) 10 mg QAM PO 02/05/18 09:00 03/07/18 08:59 02/08/18 08:18 10 MG Nitroglycerin (Nitrostat Tab) 0.4 mg UD PRN UT 02/04/18 15:00 03/06/18 14:59 Pantoprazole Sodium (Protonix Tab) 40 mg BID PO 02/04/18 21:00 03/06/18 20:59 02/08/18 08:18 40 MG Potassium Chloride (Klor-Con M10) 10 meq TIDM PO 02/04/18 16:45 03/06/18 17:59 02/08/18 17:17 10 MEQ Tamsulosin HCl (Flomax Cap) 0.4 mg HS PO 02/04/18 21:00 03/06/18 20:59 02/07/18 20:44 0.4 MG Verapamil HCl (Calan-Sr Tab) 180 mg QAM PO 02/05/18 09:00 03/07/18 08:59 Future Hold 02/05/18 08:45 180 MG Acetaminophen (Tylenol Tab) 1,000 mg Q8 PRN PO 02/04/18 15:30 03/06/18 15:29 Enoxaparin Sodium (Lovenox Inj) 40 mg HS SQ 02/04/18 21:00 03/06/18 20:59 02/07/18 20:43 40 MG Ondansetron HCl (Zofran Inj) 4 mg Q6H PRN IV 02/05/18 08:45 03/07/18 08:44 02/08/18 17:17 4 MG Acetaminophen/ Hydrocodone Bitart ([place] 5/325 Tab) 1 tab Q6 PRN PO 02/08/18 17:30 02/22/18 17:29 UNV Objective Vital Signs Date Time Temp Pulse Resp B/P (MAP) Pulse Ox O2 Delivery O2 Flow Rate FiO2 02/08/18 16:24 93 Room Air 02/08/18 15:58 37.0 62 20 120/72 (88) 95 Room Air 110/69 (83) 110/71 (84) 02/08/18 12:06 37.0 84 18 120/71 (87) 97 02/08/18 12:01 93 Room Air 02/08/18 08:07 36.6 74 18 124/81 (95) 96 02/08/18 08:01 93 Room Air 02/08/18 04:00 Room Air 02/08/18 03:45 37.0 61 16 106/63 (77) 93 71 107/69 (82) 68 123/73 (90) 02/07/18 23:59 Room Air 02/07/18 23:48 37.2 62 18 118/77 (91) 93 Room Air 02/07/18 20:47 36.6 80 18 127/64 (85) 95 Room Air 02/07/18 20:00 95 Room Air Physical Exam General Appearance: no apparent distress, + obese Respiratory/Chest: chest non-tender, lungs clear, normal breath sounds, no respiratory distress, no accessory muscle use Cardiovascular: regular rate, rhythm, no edema, no murmur Abdomen: normal bowel sounds, soft, + tenderness Laboratory Results Last 24 Hours Test 02/08/18 05:21 White Blood Count 7.89 K/uL Red Blood Count 4.47 M/uL Hemoglobin 13.4 g/dL Hematocrit 39.7 % Mean Corpuscular Volume 88.8 fL Mean Corpuscular Hemoglobin 30.0 pg Mean Corpuscular Hemoglobin Concent 33.8 g/dl RDW Standard Deviation 46.6 fL RDW Coefficient of Variation 14.3 % Platelet Count 244 K/uL Mean Platelet Volume 8.9 fL Sodium Level 135 mmol/L Potassium Level 3.6 mmol/L Chloride Level 99 mmol/L Carbon Dioxide Level 31 mmol/L Anion Gap 6.0 mmol/L Blood Urea Nitrogen 20 mg/dl Creatinine 1.29 mg/dl Est Creatinine Clear Calc Drug Dose 95.2 ml/min Estimated GFR () 77.6 Estimated GFR (Non- 67.0 BUN/Creatinine Ratio 15.4 Random Glucose 94 mg/dl Calcium Level 8.3 mg/dl Assessment and Plan This is a 42 year old male with a PMH of morbid obesity, HTN, HLD, hx. of renal cell carcinoma, hx. of PE, recent hiatal hernia repair - presents with substernal chest pain Chest Pain 02/08 * nuclear stress test - normal * will stop IV Dilaudid * add [place] PRN - patient had been taking this after his inguinal hernia repair with no allergic response * likely discharge home on 02/09 - outpatient general surgery input 02/07 * unlikely cardiac in nature as per cardiology * failed dobutamine stress secondary to nausea * has had cardiac cath in 2014 and multiple stress tests afterwards which have been negative * two day nuclear stress test pending Abdominal Pain * inguinal hernia repair in December * no acute issues noted; possibly reflux related chest pain/abdominal pain * continue PPI BID and may possible add an H2 murphy * can add Carafate if persistent * will wean off of Dilaudid after stress test is performed * states he is able to take [place] with no allergic reaction HTN * monitor blood pressure and orthostatics * holding CCB, continue Lisinopril and HCTZ for now COPD, likely Obesity Hypoventilation * Pulmonary status stable. * Continue usual inhalers. HLD * Continue atorvastatin Morbid Obesity * AHA diet DVT ppx * Lovenox likely will return home in 1-2 days
[2018-02-08] MEDS: TAMSULOSIN HCL 0.4 MG CAP PO SCH (21:04)
[2018-02-08] MEDS: ENOXAPARIN 40 MG/0.4 ML SYR SQ SCH (21:05)
[2018-02-09 03:40] VITALS: BP_SYST 113; BP_SYST 117; BP_SYST 126; BP_DIAS 74; BP_DIAS 76; BP_DIAS 83; PULSE 64; PULSE 75; PULSE 79; TEMP 37.1; O2SAT 96
[2018-02-09 04:00] VITALS: O2SAT 93
[2018-02-09 05:37] LABS: HEMATOCRIT 41.2 % (42-52); HEMOGLOBIN 14.2 g/dL (14.0-18.0); MEAN CORPUSCULAR HEMOGLOBIN 30.7 pg (25-34); MEAN CORPUSCULAR HGB CONC 34.5 g/dl (32-36); MEAN PLATELET VOLUME 9.1 fL (7.4-10.4); PLATELET COUNT 269 K/uL (130-400); RED CELL DISTRIBUTION WIDTH CV 13.9 % (11.5-14.5); RED CELL DISTRIBUTION WIDTH SD 45.2 fL (36.4-46.3); WHITE BLOOD COUNT 7.79 K/uL (4.8-10.8)
[2018-02-09 06:04] LABS: CALCIUM 8.8 mg/dl (8.5-10.1); CREATININE 1.3 mg/dl (0.60-1.40)
[2018-02-09 08:00] VITALS: O2SAT 93
--- NOTE | 2018-02-09 08:32 | Progress Note ---
Subjective Date of Service: Feb 09, 2018. Subjective Pt evaluation today including: conversation w/ patient, physical exam, lab review, review of studies, review of inpatient medication list Saw/examined the patient in room 221 He's doing well, no chest pain; abdominal pain has improved No diarrhea, no constipation, normal bowel movements Eager to go home. Problem List Medical Problems: (1) Abdominal pain Status: Acute (2) Bleeding gums Status: Acute (3) Cough Status: Acute (4) Fall Status: Acute (5) Foot sprain Status: Acute (6) Left elbow pain Status: Acute (7) Left sided chest pain Status: Acute (8) Rib pain on left side Status: Acute (9) Rib pain on left side Status: Acute (10) Suprapubic abdominal pain Status: Acute (11) URI (upper respiratory infection) Status: Acute Social History Problems: (1) S/P tooth extraction Status: Acute Review of Systems Constitutional: No fever, No chills Respiratory: No cough, No sputum, No shortness of breath Cardiac: No chest pain Abdomen: No pain, No nausea (intermittent), No vomiting, No diarrhea Medications Current Inpatient Medications Medications (Trade) Dose Ordered Sig/Edouard Route Start Time Stop Time Status Last Admin Dose Admin Acetaminophen (Tylenol Tab) 650 mg Q4H PRN PO 02/04/18 14:15 03/06/18 14:14 Al Hydrox/Mg Hydrox/Simethicone (Maalox Max Susp) 15 ml Q4H PRN PO 02/04/18 14:15 03/06/18 14:14 Nitroglycerin (Nitrostat Tab) 0.4 mg UD PRN SL 02/04/18 14:15 03/06/18 14:14 Miscellaneous (Iv Fluids Completed) 1 ea PRN PRN N/A 02/04/18 15:00 02/04/19 14:59 02/07/18 03:56 1 EA Albuterol (Ventolin Hfa Inhaler) 2 puffs Q4 PRN INH 02/04/18 15:00 03/06/18 14:59 Aspirin (Ecotrin Tab) 81 mg QAM PO 02/05/18 09:00 03/07/18 08:59 02/08/18 08:18 81 MG Atorvastatin Calcium (Lipitor Tab) 10 mg QAM PO 02/05/18 09:00 03/07/18 08:59 Future Hold 02/05/18 08:44 10 MG Bupropion HCl (Wellbutrin-Xl Tab) 300 mg QAM PO 02/05/18 09:00 03/07/18 08:59 02/08/18 08:18 300 MG Citalopram Hydrobromide (celeXA TAB) 40 mg QAM PO 02/05/18 09:00 03/07/18 08:59 02/08/18 08:18 40 MG Hydrochlorothiazide (Hydrochlorothiazide Tab) 50 mg QAM PO 02/05/18 09:00 03/07/18 08:59 02/08/18 08:18 50 MG Lisinopril (Zestril Tab) 40 mg QAM PO 02/05/18 09:00 03/07/18 08:59 02/08/18 08:18 40 MG Montelukast Sodium (Singulair Tab) 10 mg QAM PO 02/05/18 09:00 03/07/18 08:59 02/08/18 08:18 10 MG Nitroglycerin (Nitrostat Tab) 0.4 mg UD PRN UT 02/04/18 15:00 03/06/18 14:59 Pantoprazole Sodium (Protonix Tab) 40 mg BID PO 02/04/18 21:00 03/06/18 20:59 02/08/18 21:04 40 MG Potassium Chloride (Klor-Con M10) 10 meq TIDM PO 02/04/18 16:45 03/06/18 17:59 02/08/18 17:17 10 MEQ Tamsulosin HCl (Flomax Cap) 0.4 mg HS PO 02/04/18 21:00 03/06/18 20:59 02/08/18 21:04 0.4 MG Verapamil HCl (Calan-Sr Tab) 180 mg QAM PO 02/05/18 09:00 03/07/18 08:59 Future Hold 02/05/18 08:45 180 MG Acetaminophen (Tylenol Tab) 1,000 mg Q8 PRN PO 02/04/18 15:30 03/06/18 15:29 Enoxaparin Sodium (Lovenox Inj) 40 mg HS SQ 02/04/18 21:00 03/06/18 20:59 02/08/18 21:05 40 MG Ondansetron HCl (Zofran Inj) 4 mg Q6H PRN IV 02/05/18 08:45 03/07/18 08:44 02/08/18 17:17 4 MG Acetaminophen/ Hydrocodone Bitart ([place] 5/325 Tab) 1 tab Q6 PRN PO 02/08/18 17:30 02/22/18 17:29 Objective Vital Signs Date Time Temp Pulse Resp B/P (MAP) Pulse Ox O2 Delivery O2 Flow Rate FiO2 02/09/18 04:00 93 Room Air 02/09/18 03:40 37.1 64 20 117/76 (90) 96 Room Air 75 113/74 (87) 79 126/83 (97) 02/08/18 23:59 93 Room Air 02/08/18 23:38 37.1 61 19 123/74 (90) 93 Room Air 02/08/18 20:27 36.9 66 20 108/71 (83) 92 Room Air 02/08/18 20:00 93 Room Air 02/08/18 16:24 93 Room Air 02/08/18 15:58 37.0 62 20 120/72 (88) 95 Room Air 110/69 (83) 110/71 (84) 02/08/18 12:06 37.0 84 18 120/71 (87) 97 02/08/18 12:01 93 Room Air Physical Exam General Appearance: no apparent distress, + obese Respiratory/Chest: chest non-tender, lungs clear, normal breath sounds, no respiratory distress, no accessory muscle use Cardiovascular: regular rate, rhythm, no edema, no murmur Extremities: normal inspection, no pedal edema Laboratory Results Last 24 Hours Test 02/09/18 05:13 02/09/18 07:27 White Blood Count 7.79 K/uL Red Blood Count 4.63 M/uL Hemoglobin 14.2 g/dL Hematocrit 41.2 % Mean Corpuscular Volume 89.0 fL Mean Corpuscular Hemoglobin 30.7 pg Mean Corpuscular Hemoglobin Concent 34.5 g/dl RDW Standard Deviation 45.2 fL RDW Coefficient of Variation 13.9 % Platelet Count 269 K/uL Mean Platelet Volume 9.1 fL Sodium Level 136 mmol/L Potassium Level mmol/L 3.8 mmol/L Chloride Level 99 mmol/L Carbon Dioxide Level 31 mmol/L Anion Gap 6.0 mmol/L Blood Urea Nitrogen 19 mg/dl Creatinine 1.30 mg/dl Est Creatinine Clear Calc Drug Dose 94.0 ml/min Estimated GFR () 76.9 Estimated GFR (Non- 66.4 BUN/Creatinine Ratio 14.8 Random Glucose 94 mg/dl Calcium Level 8.8 mg/dl Assessment and Plan This is a 42 year old male with a PMH of morbid obesity, HTN, HLD, hx. of renal cell carcinoma, hx. of PE, recent hiatal hernia repair - presents with substernal chest pain Chest Pain 02/09 * nuclear stress normal; stopped IV Dilaudid * patient's abdominal pain improved; chest pain resolved * will d/c home today * patient already has [place] at home from previous surgery * outpatient general surgery and PCP follow-up 02/08 * nuclear stress test - normal * will stop IV Dilaudid * add [place] PRN - patient had been taking this after his inguinal hernia repair with no allergic response * likely discharge home on 02/09 - outpatient general surgery input 02/07 * unlikely cardiac in nature as per cardiology * failed dobutamine stress secondary to nausea * has had cardiac cath in 2014 and multiple stress tests afterwards which have been negative * two day nuclear stress test pending Abdominal Pain * inguinal hernia repair in December * no acute issues noted; possibly reflux related chest pain/abdominal pain * continue PPI BID and may possible add an H2 murphy * can add Carafate if persistent * will wean off of Dilaudid after stress test is performed * states he is able to take [place] with no allergic reaction HTN * monitor blood pressure and orthostatics * holding CCB, continue Lisinopril and HCTZ for now COPD, likely Obesity Hypoventilation * Pulmonary status stable. * Continue usual inhalers. HLD * Continue atorvastatin Morbid Obesity * AHA diet DVT ppx * Lovenox likely will return home in 1-2 days
[2018-02-09 08:34] VITALS: BP_SYST 134; BP_SYST 148; BP_SYST 154; BP_DIAS 101; BP_DIAS 69; BP_DIAS 73; PULSE 102; TEMP 37; O2SAT 95
--- NOTE | 2018-02-09 08:41 | Discharge Instructions ---
Discharge Instructions Date of Service Feb 09, 2018. Admission Reason for Admission: Chest Pain Discharge Discharge Diagnosis / Problem: Chest Pain - Abdominal Pain, possible reflux Discharge Goals Goal(s): Decrease discomfort, Improve function, Diagnostic testing, Therapeutic intervention Activity Recommendations Activity Limitations: resume your previous activity . Instructions / Follow-Up Instructions / Follow-Up Please follow-up with Dr. Galvan on February 10 at 10:15AM * Your nuclear stress test was negative * please follow-up with the surgeon (Dr. Pitts) regarding the abdominal pain Current Hospital Diet Patient's current hospital diet: AHA Diet (Heart Healthy) Discharge Diet Recommended Diet: AHA Diet (Heart Healthy) Pending Studies Studies pending at discharge: no Laboratory Results Lipid Panel Test 02/05/18 07:35 Range/Units Triglycerides Level 148 0-150 mg/dl Cholesterol Level 160 0-200 mg/dl HDL Cholesterol 39 mg/dl Cholesterol/HDL Ratio 4.1 LDL Cholesterol, Calculated 91 mg/dl Medical Emergencies . Who to Call and When: Medical Emergencies: If at any time you feel your situation is an emergency, please call 911 immediately. . Non-Emergent Contact Non-Emergency issues call your: Primary Care Provider, Surgeon . . "Provider Documentation" section prepared by Rica Monroe. .
[2018-02-09] MEDS: ONDANSETRON INJ 2 MG/ML 2 ML VIAL IV PRN (08:42)
[2018-02-09] MEDS: ASPIRIN 81 MG ECTAB PO SCH (08:43)
[2018-02-09] MEDS: PANTOprazole SOD 40 MG TAB PO SCH (08:43)
--- NOTE | 2018-02-09 08:43 | Discharge Summary ---
Discharge Summary Date of Service Feb 09, 2018. Discharge Summary Admission Date: Feb 06, 2018 at 19:00 Discharge Date: Feb 09, 2018 Discharge Disposition: Home Principal Diagnosis: Chest Pain - likely GERD Abdominal Pain - recent inguinal hernia repair HTN Medication Reconciliation Continued Medications: Albuterol Hfa (Ventolin Hfa) 200 Puffs/01797 Mcg Aers 2 PUFFS INH Q4 PRN for Shortness of Breath Albuterol Sulf (Proventil 0.083% 2.5MG/3ML) 2.5 Mg/3 Ml Nebu 2.5 MG INH Q4 PRN for PRN, EA Aspirin (Aspirin Chewable) 81 Mg Chew 81 MG PO QAM BEEN HOLD FOR "A WHILE", I HAVE TO BUY SOME Atorvastatin (Lipitor) 10 Mg Tab 10 MG PO QAM, TAB Bupropion Hcl (Wellbutrin Xl) 300 Mg Tab 300 MG PO QAM, TAB Citalopram Hydrobromide (Celexa) 40 Mg Tab 40 MG PO QAM, TAB Hydrochlorothiazide (Hydrochlorothiazide) 50 Mg Tab 50 MG PO QAM Lisinopril (Zestril) 40 Mg Tab 40 MG PO QAM, TAB Mometasone Furoate-Formoterol (Dulera 200/5 Mcg) 1 Aer Aer 2 PUFFS INH BID for 30 Days, #13 GM 3 Refills Montelukast Sodium (Singulair) 10 Mg Tab 10 MG PO QAM, TAB Nitroglycerin (Nitrostat) 0.4 Mg Tab 0.4 MG UT UD PRN for Chest Pain Pantoprazole (Protonix) 40 Mg Tab 40 MG PO BID Potassium Chloride (Micro-K Ext Rel) 10 Meq Capcr 10 MEQ PO TIDM, CAP Tamsulosin HCl (Tamsulosin HCl) 0.4 Mg Cap 0.4 MG PO HS Verapamil Hcl (Calan Sr Ext Rel) 180 Mg Tab 180 MG PO QAM, TAB Admission Information HPI (per Admitting provider): 42-year-old male followed by Dr. Mya Morales for Family Medicine. History of hypertension, dyslipidemia, renal cell carcinoma, pulmonary embolism , and other problems as noted below. Father suffered a myocardial infarction at a young age Patient has had several episodes of chest pain over the years and has undergone stress testing and cardiac catheterization without significant findings. Cardiac catheterization was performed by Dr. Guerrero on 01/14/15; coronary anatomy was unremarkable. Recently experiencing chest pressure, dyspnea, and palpitations with exertion. Last evening he ate supper consisting of meat loaf, mashed potatoes, stuffing, gravy. This morning around 2 a.m. he awoke from sleep with midsternal chest pressure radiating to his left arm. Chest pain associated with dyspnea, mild diaphoresis, nausea. Symptoms improved after while, but then recurred around 4 a.m. He came to the ED for evaluation because of his persistent symptoms. In the ED he received nitroglycerin with relief of his chest discomfort. Chest pain-free at the time of my assessment, but experiencing a headache after receiving nitroglycerin. . Physical Exam (per Admitting): CONSTITUTIONAL vital signs as noted above adult male, obese, no acute distress EYES conjunctivae clear; lids normal pupils equal and reactive to light EARS, NOSE, MOUTH AND THROAT external inspection of ears and nose unremarkable hearing grossly intact to spoken voice oropharynx clear edentulous NECK no masses; trachea midline thyroid normal RESPIRATORY normal respiratory effort; no respiratory distress clear to percussion clear to auscultation CARDIOVASCULAR regular rate and rhythm no murmur, gallop, rub appreciated carotid arteries 2/2; no bruits appreciated abdominal aorta not palpable radial and pedal pulses intact and symmetric capillary refill toes < 2 seconds no pretibial edema GASTROINTESTINAL normal bowel sounds, soft, no palpable masses mild-moderate RUQ tenderness without guarding or rebound no hepatomegaly or splenomegaly appreciated, but exam limited LYMPHATIC no cervical adenopathy MUSCULOSKELETAL no cyanosis; no digital clubbing no calf tenderness motor strength extremities grossly intact SKIN no rash warm and dry NEUROLOGIC PERRL, EOMI, no facial palsy, no dysarthria, tongue midline patellar DTR's 2/2 PSYCHIATRIC oriented to person, place, time mood and affect appropriate . Hospital Course This is a 42 year old male with a PMH of morbid obesity, HTN, HLD, hx. of renal cell carcinoma, hx. of PE, recent hiatal hernia repair - presents with substernal chest pain Chest Pain 02/09 * nuclear stress normal; stopped IV Dilaudid * patient's abdominal pain improved; chest pain resolved * will d/c home today * patient already has [place] at home from previous surgery * outpatient general surgery and PCP follow-up 02/08 * nuclear stress test - normal * will stop IV Dilaudid * add [place] PRN - patient had been taking this after his inguinal hernia repair with no allergic response * likely discharge home on 02/09 - outpatient general surgery input 02/07 * unlikely cardiac in nature as per cardiology * failed dobutamine stress secondary to nausea * has had cardiac cath in 2014 and multiple stress tests afterwards which have been negative * two day nuclear stress test pending Abdominal Pain * inguinal hernia repair in December * no acute issues noted; possibly reflux related chest pain/abdominal pain * continue PPI BID and may possible add an H2 murphy * can add Carafate if persistent * will wean off of Dilaudid after stress test is performed * states he is able to take [place] with no allergic reaction HTN * monitor blood pressure and orthostatics * holding CCB, continue Lisinopril and HCTZ for now COPD, likely Obesity Hypoventilation * Pulmonary status stable. * Continue usual inhalers. HLD * Continue atorvastatin Morbid Obesity * AHA diet DVT ppx * Lovenox likely will return home in 1-2 days Total time spent on discharge = 25 minutes This includes examination of the patient, discharge planning, medication reconciliation, and communication with other providers. Discharge Instructions Please follow-up with Dr. Galvan on February 10 at 10:15AM * Your nuclear stress test was negative * please follow-up with the surgeon (Dr. Pitts) regarding the abdominal pain
[2018-02-09] MEDS: HYDROCHLOROTHIAZIDE 50 MG TAB PO SCH (08:44)
[2018-02-09] MEDS: LISINOPRIL 40 MG TAB PO SCH (08:44)
[2018-02-09] MEDS: BuPROPion XL 300 MG TABCR PO SCH (08:44)
[2018-02-09] MEDS: MONTELUKAST SOD 10 MG TAB PO SCH (08:45)
[2018-02-09] MEDS: CITALOPRAM 40 MG TAB PO SCH (08:45)
[2018-02-09] MEDS: POTASSIUM CHLORIDE 10 MEQ TABCR PO SCH (08:45)
[2018-02-09 08:55] VITALS: BP 154/101; PULSE 102; TEMP 37; O2SAT 95
== END 2018-02-09 09:15 | disposition home or self-care (01) | DRG 313 ==
LOC: C.EDB 12:14 → C.2T 14:13 → ENRESERV 14:42 → OBSVTOIN 02-06 19:00
PROVIDERS: ADMIT Hospitalist; ATTEND Family Medicine
DX: R07.89 Other chest pain (principal); E66.2 Morbid (severe) obesity with alveolar hypoventilation; Z68.42 Body mass index [BMI] 45.0-49.9, adult; R06.00 Dyspnea, unspecified; R11.2 Nausea with vomiting, unspecified; K21.9 Gastro-esophageal reflux disease without esophagitis; K22.4 Dyskinesia of esophagus; R10.9 Unspecified abdominal pain; J44.9 Chronic obstructive pulmonary disease, unspecified; E78.5 Hyperlipidemia, unspecified; F41.0 Panic disorder [episodic paroxysmal anxiety]; Z53.8 Procedure and treatment not carried out for other reasons; Z82.49 Family history of ischemic heart disease and other diseases of the circulatory system; Z86.711 Personal history of pulmonary embolism; Z79.82 Long term (current) use of aspirin; Z79.899 Other long term (current) drug therapy; Z88.0 Allergy status to penicillin; Z88.5 Allergy status to narcotic agent; Z88.6 Allergy status to analgesic agent

== ENCOUNTER 2018-02-19 13:59 | Emergency (ER) | payer OTHER ==
[~2018-02-19] VITALS: Ht 167.6 cm; Wt 133.0 kg
[~2018-02-19 13:59] MED LIST changes: +MOME200A INH
[2018-02-19 14:12] VITALS: TEMP 36.9; Ht 167.6 cm; Wt 133.0 kg
[2018-02-19 14:29] VITALS: O2SAT 97
[2018-02-19] MEDS ORDERED: GI COCKTAIL PO STA (14:33)
[2018-02-19] MEDS ORDERED: OPTIRAY 320 IV PRN (14:45)
[2018-02-19] MEDS ORDERED: LIDOCAINE HCL 2% VISC SOLN 20 ML UDC ONE (14:45)
[2018-02-19] MEDS ORDERED: ALUMINUM/MAGNESIUM SUSP 30 ML UDC ONE (14:45)
[2018-02-19 14:49] LABS: BASO % 0.3 %; BASO ABS # 0.03 K/uL (0-0.2); EOS % 1.6 %; EOS ABS # 0.15 K/uL (0-0.5); HEMATOCRIT 44.2 % (42-52); HEMOGLOBIN 15.4 g/dL (14.0-18.0); IG# 0.12 K/uL (0.00-0.02); LYMPH % 21.2 %; LYMPH ABS # 1.94 K/uL (1.2-3.4); MEAN CELL VOLUME 87.5 fL (80-100); MEAN CORPUSCULAR HEMOGLOBIN 30.5 pg (25-34); MEAN CORPUSCULAR HGB CONC 34.8 g/dl (32-36); MEAN PLATELET VOLUME 8.8 fL (7.4-10.4); MONO % 8.1 %; MONO ABS # 0.74 K/uL (0.11-0.59); NEUT % 67.5 %; NEUT ABS # 6.19 K/uL (1.4-6.5); PLATELET COUNT 311 K/uL (130-400); RED CELL DISTRIBUTION WIDTH CV 13.3 % (11.5-14.5); RED CELL DISTRIBUTION WIDTH SD 42.1 fL (36.4-46.3); WHITE BLOOD COUNT 9.17 K/uL (4.8-10.8)
[2018-02-19 14:57] LABS: BLOOD UREA NITROGEN 17 mg/dl (7-18); CALCIUM 8.9 mg/dl (8.5-10.1); CARBON DIOXIDE 29 mmol/L (21-32); CREATININE 1.15 mg/dl (0.60-1.40); GLUCOSE 85 mg/dl (70-99); POTASSIUM 3.7 mmol/L (3.5-5.1); SODIUM 139 mmol/L (136-145)
[2018-02-19 15:02] LABS: CKMB 0.9 ng/ml (0.5-3.6)
--- NOTE | 2018-02-19 15:02 | DIAGNOSTIC IMAGING REPORT ---
CHEST ONE VIEW PORTABLE CLINICAL HISTORY: 42 years-old Male presenting with Chest Pain. TECHNIQUE: Portable upright AP view of the chest was obtained. COMPARISON: 02/04/2018. FINDINGS: Cardiomediastinal silhouette normal. Mildly low lung volumes with hypoventilatory changes with no other focal opacity. No large effusion or pneumothorax. Osseous structures normal. Upper abdomen normal. IMPRESSION: 1. The low lung volumes with hypoventilatory changes. Electronically signed by: Grayson Bledsoe M.D. 02/19/2018 3:01 PM Dictated Date/Time: 02/19/2018 3:00 PM
--- NOTE | 2018-02-19 15:38 | DIAGNOSTIC IMAGING REPORT ---
(CHEST FOR PE) ANGIO WITH CLINICAL HISTORY: 42 years-old Male presenting with ^CP pmh dvt. TECHNIQUE: Multidetector CT angiography of the chest was performed after administration of intravenous contrast. 3-D volumetric and/or maximum intensity projection (MIP) images were subsequently reconstructed for review. IV contrast: 79 mL of Optiray 320. A dose lowering technique was used consistent with the principles of ALARA (as low as reasonably achievable). COMPARISON: 04/29/2015. CT DOSE (mGy.cm): The estimated cumulative dose is 660.46 mGy.cm. FINDINGS: Front End Ui Developer topogram: Unremarkable. Pulmonary vasculature: The study is suboptimal for the assessment of the pulmonary vascular tree secondary to timing of the contrast bolus. Allowing for limited image quality, no central filling defect to suggest pulmonary embolus. Main pulmonary artery is not enlarged. No flattening of the interventricular septum. No intracardiac filling defect. No reflux of contrast into the hepatic veins. Remaining chest: On soft tissue windows, normal thyroid and thoracic inlet. No axillary, supraclavicular, hilar, or mediastinal lymphadenopathy. Normal aorta. Normal heart size. No pericardial or pleural effusion. Hepatic steatosis. Congenital hypoplasia of the medial segments of the left hepatic lobe. Gallbladder decompressed. On lung windows, no focal infiltrate or nodule. Airways patent. On bone windows, degenerative changes of the spine. IMPRESSION: 1. Allowing for suboptimal image quality, no evidence of pulmonary embolus. No acute intrathoracic pathology. 2. Hepatic steatosis. Electronically signed by: Grayson Bledsoe M.D. 02/19/2018 3:36 PM Dictated Date/Time: 02/19/2018 3:32 PM
[2018-02-19 15:58] VITALS: BP 157/90; PULSE 61; O2SAT 98
[2018-02-19] MEDS ORDERED: SUCR1TAB29 PO (16:04)
--- NOTE | 2018-02-19 18:22 | EMERGENCY ROOM VISIT NOTE ---
History Report prepared by Lazaro: Esperanza Gonzalez Under the Supervision of: Dr. Azar Justice D.O. First contact with patient: 14:16 Chief Complaint: CHEST PAIN Stated Complaint: LEFT SIDE PAIN, CHEST PAIN, LEFT ARM PRIVATE PAIN Nursing Triage Summary: patient c/o left sided chest pain and SOB yesterday evening. "this morning my arm numb and tingling." patient states he took a nitro yesterday and pain decreased. "my privates are also hurtin' to. patinet c/o bilateral scrotum pain." History of Present Illness The patient is a 42 year old male who presents to the Emergency Room with complaints of constant chest pain beginning yesterday afternoon. The patient states his chest pressure began yesterday while he was exerting himself. He describes the pain as a burning coming up through his chest. He has been getting the same pain for the past several months. The pain is in the middle of the sternum to the left. He does have some shortness of breath yesterday and some tingling in his arm but denies any of this now. Denies any diaphoresis. This is the same exact pain that he was admitted for earlier this month. The patient was seen in the ED on 02/06 for chest pain and was admitted. He had a negative stress test when he was in the hospital. The patient had an negative heart catheterization in 2014. The patient states his pain is different from the last time he was in the ED. He also report nausea, and diarrhea. Pt denies headache, change in vision, fevers, shortness of breath, vomiting, pain with urination, and melena. Source of History: patient Onset: yesterday Position: chest Quality: other (pain) Timing: constant Modifying Factors (Worsening): other (exertion) Associated Symptoms: + chest pain, + nausea, No SOB, No vomiting, No urinary symptoms Review of Systems See HPI for pertinent positives & negatives. A total of 10 systems reviewed and were otherwise negative. Past Medical & Surgical Medical Problems: (1) Asthma (2) Asthma, Unspecified, W (Acute) Exacerbation (3) Asthma, Unspecified, W (Acute) Exacerbation (4) Depression (5) Diab Hannah Wo Compl, Type Ii Or Unspec Type, Not Uncntrld (6) GERD (gastroesophageal reflux disease) (7) History of basal cell carcinoma (8) History of pulmonary embolism (9) History of renal cell carcinoma (10) Hypertension (11) Hypertension Nos (12) Obesity, morbid, BMI 40.0-49.9 (13) Sleep apnea Surgical Problems: (1) History of partial nephrectomy (2) Status post inguinal hernia repair Family History Coronary artery disease FATHER Diabetes mellitus FATHER Hypertension MOTHER Kidney disease FATHER Social History Smoking Status: Never Smoker Alcohol Use: none Drug Use: none Marital Status: Housing Status: lives with family Occupation Status: employed Current/Historical Medications Scheduled Aspirin (Aspirin Chewable), 81 MG PO QAM Atorvastatin (Lipitor), 10 MG PO QAM Bupropion Hcl (Wellbutrin Xl), 300 MG PO QAM Citalopram Hydrobromide (Celexa), 40 MG PO QAM Hydrochlorothiazide (Hydrochlorothiazide), 50 MG PO QAM Lisinopril (Zestril), 40 MG PO QAM Mometasone Furoate-Formoterol (Dulera 200/5 Mcg), 2 PUFFS INH BID Montelukast Sodium (Singulair), 10 MG PO QAM Pantoprazole (Protonix), 40 MG PO BID Potassium Chloride (Micro-K Ext Rel), 10 MEQ PO TIDM Sucralfate (Carafate), 1 GM PO TID Tamsulosin HCl (Tamsulosin HCl), 0.4 MG PO HS Verapamil Hcl (Calan Sr Ext Rel), 180 MG PO QAM Scheduled PRN Albuterol Hfa (Ventolin Hfa), 2 PUFFS INH Q4 PRN for Shortness of Breath Albuterol Sulf (Proventil 0.083% 2.5MG/3ML), 2.5 MG INH Q4 PRN for PRN Nitroglycerin (Nitrostat), 0.4 MG UT UD PRN for Chest Pain Allergies Coded Allergies: Oxycodone (Verified Allergy, Severe, THROAT SWELLED UP, HARD TIME BREATHING, 02/04/18) GI UPSET, CONSTIPATION Penicillins (Verified Allergy, Severe, THROAT SWELLING, 02/04/18) Ketorolac (Verified Allergy, Intermediate, UPSET STOMACH/ ITCHY, 02/04/18) Tramadol (Verified Allergy, Intermediate, RASH, UPSET STOMACH, 02/04/18) Physical Exam Vital Signs Date Time Temp Pulse Resp B/P (MAP) Pulse Ox O2 Delivery O2 Flow Rate FiO2 02/19/18 15:58 61 18 157/90 98 Room Air 02/19/18 14:29 97 Room Air 02/19/18 14:28 68 02/19/18 14:12 36.9 71 20 169/97 95 Room Air Physical Exam GENERAL: Sitting up in bed, smiling, alert, well appearing, well nourished, no distress, non-toxic EYE EXAM: normal conjunctiva. OROPHARYNX: no exudate, no erythema, lips, buccal mucosa, and tongue normal and mucous membranes are moist NECK: supple, no nuchal rigidity, no adenopathy, non-tender LUNGS: Clear to auscultation. Normal chest wall mechanics HEART: no murmurs, S1 normal and S2 normal ABDOMEN: abdomen soft, non-tender, normo-active bowel sounds, no masses, no rebound or guarding. BACK: Back is symmetrical on inspection and there is no deformity, no midline tenderness, no CVA tenderness. SKIN: no rashes and no bruising UPPER EXTREMITIES: Radial pulses equal bilaterally, upper extremities are grossly normal. LOWER EXTREMITIES: No pitting edema, calves equal bilaterally. NEURO EXAM: Normal sensorium, cranial nerves II-XII grossly intact, normal speech, no gross weakness of arms, no gross weakness of legs. Medical Decision & Procedures ER Provider Diagnostic Interpretation: Radiology results as stated below per my review and the radiologist's interpretation: (CHEST FOR PE) ANGIO WITH FINDINGS: Sticker Hand topogram: Unremarkable. Pulmonary vasculature: The study is suboptimal for the assessment of the pulmonary vascular tree secondary to timing of the contrast bolus. Allowing for limited image quality, no central filling defect to suggest pulmonary embolus. Main pulmonary artery is not enlarged. No flattening of the interventricular septum. No intracardiac filling defect. No reflux of contrast into the hepatic veins. Remaining chest: On soft tissue windows, normal thyroid and thoracic inlet. No axillary, supraclavicular, hilar, or mediastinal lymphadenopathy. Normal aorta. Normal heart size. No pericardial or pleural effusion. Hepatic steatosis. Congenital hypoplasia of the medial segments of the left hepatic lobe. Gallbladder decompressed. On lung windows, no focal infiltrate or nodule. Airways patent. On bone windows, degenerative changes of the spine. IMPRESSION: 1. Allowing for suboptimal image quality, no evidence of pulmonary embolus. No acute intrathoracic pathology. 2. Hepatic steatosis. Electronically signed by: Grayson Bledsoe M.D. CHEST ONE VIEW PORTABLE FINDINGS: Cardiomediastinal silhouette normal. Mildly low lung volumes with hypoventilatory changes with no other focal opacity. No large effusion or pneumothorax. Osseous structures normal. Upper abdomen normal. IMPRESSION: 1. The low lung volumes with hypoventilatory changes. Electronically signed by: Grayson Bledsoe M.D. Laboratory Results 02/19/18 14:20 Red Blood Count 5.05, Mean Corpuscular Volume 87.5, Mean Corpuscular Hemoglobin 30.5, Mean Corpuscular Hemoglobin Concent 34.8, Mean Platelet Volume 8.8, Neutrophils (%) (Auto) 67.5, Lymphocytes (%) (Auto) 21.2, Monocytes (%) (Auto) 8.1, Eosinophils (%) (Auto) 1.6, Basophils (%) (Auto) 0.3, Neutrophils # (Auto) 6.19, Lymphocytes # (Auto) 1.94, Monocytes # (Auto) 0.74, Eosinophils # (Auto) 0.15, Basophils # (Auto) 0.03 02/19/18 14:20 Test 02/19/18 14:20 White Blood Count 9.17 K/uL (4.8-10.8) Red Blood Count 5.05 M/uL (4.7-6.1) Hemoglobin 15.4 g/dL (14.0-18.0) Hematocrit 44.2 % (42-52) Mean Corpuscular Volume 87.5 fL (80-100) Mean Corpuscular Hemoglobin 30.5 pg (25-34) Mean Corpuscular Hemoglobin Concent 34.8 g/dl (32-36) Platelet Count 311 K/uL (130-400) Mean Platelet Volume 8.8 fL (7.4-10.4) Neutrophils (%) (Auto) 67.5 % Lymphocytes (%) (Auto) 21.2 % Monocytes (%) (Auto) 8.1 % Eosinophils (%) (Auto) 1.6 % Basophils (%) (Auto) 0.3 % Neutrophils # (Auto) 6.19 K/uL (1.4-6.5) Lymphocytes # (Auto) 1.94 K/uL (1.2-3.4) Monocytes # (Auto) 0.74 K/uL (0.11-0.59) Eosinophils # (Auto) 0.15 K/uL (0-0.5) Basophils # (Auto) 0.03 K/uL (0-0.2) RDW Standard Deviation 42.1 fL (36.4-46.3) RDW Coefficient of Variation 13.3 % (11.5-14.5) Immature Granulocyte % (Auto) 1.3 % Immature Granulocyte # (Auto) 0.12 K/uL (0.00-0.02) Anion Gap 8.0 mmol/L (3-11) Est Creatinine Clear Calc Drug Dose 106.0 ml/min Estimated GFR () 89.2 Estimated GFR (Non- 77.0 BUN/Creatinine Ratio 14.8 (10-20) Calcium Level 8.9 mg/dl (8.5-10.1) Total Creatine Kinase 119 U/L (39-308) Creatine Kinase MB 0.9 ng/ml (0.5-3.6) Creatine Kinase MB Ratio 0.8 (0-3.0) Troponin I < 0.015 ng/ml (0-0.045) Laboratory results per my review. Medications Administered Medications (Trade) Dose Ordered Sig/Edouard Route Start Time Stop Time Status Last Admin Dose Admin Lidocaine HCl (Viscous Lidocaine 2% Soln) 20 ml STK-MED ONCE .ROUTE 02/19/18 14:45 02/19/18 14:46 DC 02/19/18 14:47 20 ML Al Hydroxide/Mg Hydroxide (Maalox Susp) 30 ml STK-MED ONCE .ROUTE 02/19/18 14:45 02/19/18 14:46 DC 02/19/18 14:46 30 ML ECG Per My Interpretation Indication: chest pain Rate (beats per minute): 60 Rhythm: normal sinus Findings: no ectopy, other (normal axis) Comparison ECG Date: 02/06/18 Change: no significant change ED Course ED COURSE: Vital signs were reviewed and showed hypertensive The patients medical record was reviewed The above diagnostic studies were performed and reviewed. ED treatments and interventions as stated above. 1423: The patient was evaluated in room C9. A complete history and physical examination was performed. 1433: Ordered GI cocktail 24 ml PO. 1445: Ordered Maalox Susp 30 ml .ROUTE, Lidocaine HCl 20 ml .ROUTE. 1538: The patient states his chest pain is resolved after the GI cocktail. 1556: I reviewed the patient's case with Dr. Broderick Guillory. He said the patient can follow up as an outpatient. 1622: Upon reevaluation, the patient is resting comfortably.I discussed my findings with the patient and he understands and agrees with the treatment plan. Based on the patients age, coexisting illnesses, exam and lab findings the decision to treat as an outpatient was made. The patient remained stable while under my care. The patient appeared well at the time of discharge. Medical Decision Differential diagnoses includes but is not limited to acute coronary syndrome, myocardial infarction, pericarditis, pulmonary embolus, aortic dissection, pneumonia, pneumothorax, musculoskeletal, shingles, esophageal. Patient is a 42-year-old male who presents the ER for chest pain which started yesterday and has been consistent since then. Patient was recently admitted and discharged for the same complaints. Patient had dobutamine stress which was negative at that time. EKG was unchanged. Troponin was negative with pain greater than 8 hours. Due to the history of PEs CT PE was performed and was unremarkable. CBC along with BMP was unremarkable. Patient was given a GI cocktail and is playing completely resolved. I discussed my findings with cardiology as they have extensively worked him up recently with his negative cardiac cath in 2015 and a negative stress test 2 weeks ago. They recommend having the patient follow-up as an outpatient. 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 Discussed with Pt concerning signs and symptoms to watch out for. Pt was instructed to follow up with their PCP and discussed with the patient their option to return to the ED at anytime for persistent or worsening symptoms. The appropriate anticipatory guidance and out-patient management, including indications for return to the emergency department, were explained at length to the patient and understood. Medication Reconcilliation Current Medication List: was personally reviewed by me Blood Pressure Screening Patient's blood pressure: Elevated blood pressure Blood pressure disposition: Elevated BP felt to be situational Consults Time Called: 1550 Consulting Physician: Dr. Broderick Guillory Returned Call: [phone] I reviewed the patient's case with Dr. Broderick Guillory. He said the patient can follow up as an outpatient. Impression Primary Impression: Chest pain Scribe Attestation The scribe's documentation has been prepared under my direction and personally reviewed by me in its entirety. I confirm that the note above accurately reflects all work, treatment, procedures, and medical decision making performed by me. Departure Information Dispostion Home / Self-Care Prescriptions Sucralfate (CARAFATE) 1 Gm Tab 1 GM PO TID for reflux, #30 TAB Prov: Azar Justice, DO 02/19/18 Referrals Mya Galvan D.ORamiro (PCP) Forms Call Back Authorization, HOME CARE DOCUMENTATION FORM, IMPORTANT VISIT INFORMATION Patient Instructions Chest Pain - [facility], [facility] Additional Instructions Please follow up with your primary care doctor with in the next 24 hours. Any worsening of your symptoms, please return to the ED immediately. This includes any fevers greater than 100.4, worsening pain, chest pain, shortness breath, persistent nausea, vomiting, unable to eat or drink, or any other concerning signs or symptoms from your standpoint. Please take Protonix as previously prescribed. He may benefit from Carafate which will assist with your reflux. Problem Qualifiers Primary Impression: Chest pain Chest pain type: unspecified Qualified Codes: R07.9 - Chest pain, unspecified
== END 2018-02-19 16:17 | disposition home or self-care (01) ==
LOC: C.EDB 13:59 → C.EDC 16:17
DX: R07.9 Chest pain, unspecified (principal); R11.0 Nausea; R19.7 Diarrhea, unspecified; J45.909 Unspecified asthma, uncomplicated; K21.9 Gastro-esophageal reflux disease without esophagitis; E11.9 Type 2 diabetes mellitus without complications; I10 Essential (primary) hypertension; Z79.82 Long term (current) use of aspirin; F41.8 Other specified anxiety disorders; Z82.49 Family history of ischemic heart disease and other diseases of the circulatory system; Z83.3 Family history of diabetes mellitus; Z84.1 Family history of disorders of kidney and ureter; Z88.6 Allergy status to analgesic agent; Z88.0 Allergy status to penicillin; Z86.711 Personal history of pulmonary embolism

== ENCOUNTER → 2018-02-24 | Outpatient (CLI) | payer OTHER ==
[~2018-02-24] MED LIST changes: +SUCR1TAB29 PO
--- NOTE | 2018-02-24 10:19 | DIAGNOSTIC IMAGING REPORT ---
GI SERIES W/AIR ROUTINE CLINICAL HISTORY: DYSKINESIA OF ESOPHAGUSdysphagia COMPARISON STUDY: None FLUOROSCOPY TIME: 1.5 minutes. FINDINGS: Patient initiated swallowing function well. Esophagus is normal in course and caliber. Configuration stomach is unremarkable. The duodenal bulb fills well. Duodenal sweep is unremarkable. IMPRESSION: Normal study. The above report was generated using voice recognition software. It may contain grammatical, syntax or spelling errors. Electronically signed by: Raudel Kerr M.D. 02/24/2018 10:18 AM Dictated Date/Time: 02/24/2018 10:17 AM
== END | disposition home or self-care (01) ==
LOC: C.RAD 08:54
PROVIDERS: ATTEND Surgery
DX: K22.4 Dyskinesia of esophagus (principal)

== ENCOUNTER 2018-03-12 20:59 | Emergency (ER) | payer OTHER ==
[~2018-03-12] VITALS: Ht 167.6 cm; Wt 137.9 kg
[~2018-03-12 20:59] MED LIST changes: -SUCR1TAB29 PO
[2018-03-12 21:00] VITALS: TEMP 37; O2SAT 96; Ht 167.6 cm; Wt 137.9 kg
[2018-03-12] MEDS ORDERED: DiphenhydrAMINE HCL 50 MG/ML VIAL IV STA (21:59)
[2018-03-12] MEDS ORDERED: METOCLOPRAMIDE HCL INJ 5 MG/ML 2 ML VIAL IV STA (21:59)
[2018-03-12] MEDS ORDERED: LIDOCAINE HCL 2% VISC SOLN 20 ML UDC PO STA (21:59)
[2018-03-12] MEDS ORDERED: ALUMINUM/MAGNESIUM SUSP 30 ML UDC PO STA (21:59)
[2018-03-12 22:02] LABS: BASO % 0.2 %; BASO ABS # 0.02 K/uL (0-0.2); EOS % 1.3 %; EOS ABS # 0.11 K/uL (0-0.5); HEMOGLOBIN 13.7 g/dL (14.0-18.0); IG# 0.03 K/uL (0.00-0.02); LYMPH % 19.4 %; LYMPH ABS # 1.61 K/uL (1.2-3.4); MEAN CELL VOLUME 88.7 fL (80-100); MEAN CORPUSCULAR HEMOGLOBIN 30.4 pg (25-34); MEAN CORPUSCULAR HGB CONC 34.3 g/dl (32-36); MEAN PLATELET VOLUME 9.3 fL (7.4-10.4); MONO % 10.6 %; MONO ABS # 0.88 K/uL (0.11-0.59); NEUT % 68.1 %; NEUT ABS # 5.66 K/uL (1.4-6.5); PLATELET COUNT 275 K/uL (130-400); RED CELL DISTRIBUTION WIDTH SD 45.9 fL (36.4-46.3); WHITE BLOOD COUNT 8.31 K/uL (4.8-10.8)
[2018-03-12 22:10] LABS: ALBUMIN 3.6 gm/dl (3.4-5.0); ALT/SGPT 51 U/L (12-78); AST/SGOT 26 U/L (15-37); BLOOD UREA NITROGEN 16 mg/dl (7-18); CALCIUM 8.2 mg/dl (8.5-10.1); CARBON DIOXIDE 30 mmol/L (21-32); CREATININE 1.12 mg/dl (0.60-1.40); GLUCOSE 99 mg/dl (70-99); LIPASE 111 U/L (73-393); POTASSIUM 3.8 mmol/L (3.5-5.1); SODIUM 140 mmol/L (136-145)
--- NOTE | 2018-03-12 22:13 | DIAGNOSTIC IMAGING REPORT ---
CHEST ONE VIEW PORTABLE CLINICAL HISTORY: 42 years-old Male presenting with CHEST PAIN. TECHNIQUE: AP and crosstable lateral views of the chest were obtained. COMPARISON: 02/19/2018. FINDINGS: Cardiac silhouette mildly enlarged. Pulmonary vasculature prominence. Mildly low lung volumes with hypoventilatory changes. No focal opacity. No large effusion or pneumothorax. Osseous structures normal. IMPRESSION: 1. Mildly low lung volumes with hypoventilatory changes. 2. Mild cardiomegaly suggestion of volume overload. No jd pulmonary edema. Electronically signed by: Grayson Bledsoe M.D. 03/12/2018 10:12 PM Dictated Date/Time: 03/12/2018 10:09 PM
[2018-03-12 22:15] LABS: ALKALINE PHOSPHATASE 103 U/L (45-117); TOTAL PROTEIN 7.2 gm/dl (6.4-8.2)
[2018-03-12] MEDS ORDERED: ACETAMINOPHEN 500 MG TAB PO STA (23:31)
[2018-03-13 00:10] VITALS: BP 105/82; PULSE 65; O2SAT 98
--- NOTE | 2018-03-13 05:19 | EMERGENCY ROOM VISIT NOTE ---
History First contact with patient: 21:48 Chief Complaint: CARDIAC ASSESSMENT Stated Complaint: CHEST PAIN Nursing Triage Summary: Pt. arrives via EMS transport from home with reports of chest pain that started approximately one hour prior to arrival after [facility] Police responded to a call from the patient and his regarding receiving a scam text/phone call. EMS states patient has history of anxiety, depression, HTN and had a negative heart cath in the past. Patient took 1 nitro prior to EMS arrival and was given an additional 2 SL nitro and 324mg of ASA by EMS. Pt. also complains of right sided abdominal pain and states he has gallbladder problems. History of Present Illness The patient is a 42 year old male who presents to the Emergency Room with complaints of chest discomfort after getting attacks from a scan were saying that they will shoot him if he does not give them money. He summoned the police who arrived and informed him that this is a scam and not to worry about it. He then got nervous and came to the ER. Patient states the chest discomfort is now resolved. He had a echo last month that showed no acute change. Patient also complains of chronic ongoing right upper quadrant discomfort for the past several months he was seen Dr. Pitts and had a negative HIDA scan and ultrasound in the past. Patient also complains of nausea. Patient denies dyspnea, exertional chest pain, diaphoresis, vomiting, diarrhea, back pain, urinary symptoms, leg pain or swelling. No prior heart disease. Patient states he feels much better after talking to the police and realizing this was just a scam. Review of Systems An 10 system review of systems was completed with positives and pertinent negatives listed in the HPI. Past Medical/Surgical History Medical Problems: (1) Asthma (2) Asthma, Unspecified, W (Acute) Exacerbation (3) Asthma, Unspecified, W (Acute) Exacerbation (4) Depression (5) Diab Hannah Wo Compl, Type Ii Or Unspec Type, Not Uncntrld (6) GERD (gastroesophageal reflux disease) (7) History of basal cell carcinoma (8) History of pulmonary embolism (9) History of renal cell carcinoma (10) Hypertension (11) Hypertension Nos (12) Obesity, morbid, BMI 40.0-49.9 (13) Sleep apnea Surgical Problems: (1) History of partial nephrectomy (2) Status post inguinal hernia repair Family History Coronary artery disease FATHER Diabetes mellitus FATHER Hypertension MOTHER Kidney disease FATHER Social History Smoking Status: Never Smoker Alcohol Use: none Drug Use: none Marital Status: Housing Status: lives with family Occupation Status: employed Current/Historical Medications Scheduled Aspirin (Aspirin Chewable), 81 MG PO QAM Atorvastatin (Lipitor), 10 MG PO QAM Bupropion Hcl (Wellbutrin Xl), 300 MG PO QAM Citalopram Hydrobromide (Celexa), 40 MG PO QAM Hydrochlorothiazide (Hydrochlorothiazide), 50 MG PO QAM Lisinopril (Zestril), 40 MG PO QAM Mometasone Furoate-Formoterol (Dulera 200/5 Mcg), 2 PUFFS INH BID Montelukast Sodium (Singulair), 10 MG PO QAM Pantoprazole (Protonix), 40 MG PO BID Potassium Chloride (Micro-K Ext Rel), 10 MEQ PO TIDM Tamsulosin HCl (Tamsulosin HCl), 0.4 MG PO HS Verapamil Hcl (Calan Sr Ext Rel), 180 MG PO QAM Scheduled PRN Albuterol Hfa (Ventolin Hfa), 2 PUFFS INH Q4 PRN for Shortness of Breath Albuterol Sulf (Proventil 0.083% 2.5MG/3ML), 2.5 MG INH Q4 PRN for PRN Nitroglycerin (Nitrostat), 0.4 MG UT UD PRN for Chest Pain Physical Exam Vital Signs Date Time Temp Pulse Resp B/P (MAP) Pulse Ox O2 Delivery O2 Flow Rate FiO2 03/13/18 00:10 65 16 105/82 98 Room Air 03/12/18 23:35 79 18 138/69 98 Room Air 03/12/18 22:03 64 24 113/52 97 Room Air 03/12/18 21:08 74 03/12/18 21:00 96 Room Air 03/12/18 21:00 96 Room Air 03/12/18 21:00 37.0 71 23 133/78 96 Room Air Physical Exam VITALS: Vitals are noted on the nurse's note and reviewed by myself. Vital signs stable. GENERAL: Pleasant male anxious appearing, in no acute distress, nondiaphoretic, well-developed well-nourished. SKIN: The skin was without rashes, erythema, edema, or bruising. There is no tenting of the skin. Capillary reflex less than 2 seconds. HEAD: Normocephalic atraumatic. EARS: External auditory canals clear, tympanic membranes pearly aldana without erythema or effusion bilaterally. EYES: Pupils equal round and reactive to light and accommodation. Conjunctivae without injection, sclerae without icterus. Extraocular movements intact. NOSE: Patent, turbinates without inflammation or discharge. MOUTH: Mucous membranes moist. Pharynx without erythema or exudate. Uvula midline. Airway patent. Tongue does not deviate. NECK: Supple without nuchal rigidity. No lymphadenopathy. No thyromegaly. Cervical spine is nontender. No JVD. HEART: Regular rate and rhythm chest nontender to palpation LUNGS: Clear to auscultation bilaterally without wheezes, rales or rhonchi. No retractions or accessory muscle use. ABDOMEN: Positive bowel sounds x 4. Normal tympanic percussion. Soft, protuberant, obese, minimally tender right upper quadrant, without masses or organomegaly. Dawson sign negative. No guarding or rebound tenderness. No CVA tenderness MUSCULOSKELETAL: No muscle atrophy, erythema, noted. NEURO: Patient was alert and oriented to person place and time. Normal sensation to light and sharp touch. No focal neurological deficits. Medical Decision & Procedures Laboratory Results 03/12/18 21:25 Red Blood Count 4.51, Mean Corpuscular Volume 88.7, Mean Corpuscular Hemoglobin 30.4, Mean Corpuscular Hemoglobin Concent 34.3, Mean Platelet Volume 9.3, Neutrophils (%) (Auto) 68.1, Lymphocytes (%) (Auto) 19.4, Monocytes (%) (Auto) 10.6, Eosinophils (%) (Auto) 1.3, Basophils (%) (Auto) 0.2, Neutrophils # (Auto ) 5.66, Lymphocytes # (Auto) 1.61, Monocytes # (Auto) 0.88, Eosinophils # (Auto ) 0.11, Basophils # (Auto) 0.02 03/12/18 21:25 Test 03/12/18 21:25 03/12/18 23:33 White Blood Count 8.31 K/uL (4.8-10.8) Red Blood Count 4.51 M/uL (4.7-6.1) Hemoglobin 13.7 g/dL (14.0-18.0) Hematocrit 40.0 % (42-52) Mean Corpuscular Volume 88.7 fL (80-100) Mean Corpuscular Hemoglobin 30.4 pg (25-34) Mean Corpuscular Hemoglobin Concent 34.3 g/dl (32-36) Platelet Count 275 K/uL (130-400) Mean Platelet Volume 9.3 fL (7.4-10.4) Neutrophils (%) (Auto) 68.1 % Lymphocytes (%) (Auto) 19.4 % Monocytes (%) (Auto) 10.6 % Eosinophils (%) (Auto) 1.3 % Basophils (%) (Auto) 0.2 % Neutrophils # (Auto) 5.66 K/uL (1.4-6.5) Lymphocytes # (Auto) 1.61 K/uL (1.2-3.4) Monocytes # (Auto) 0.88 K/uL (0.11-0.59) Eosinophils # (Auto) 0.11 K/uL (0-0.5) Basophils # (Auto) 0.02 K/uL (0-0.2) RDW Standard Deviation 45.9 fL (36.4-46.3) RDW Coefficient of Variation 14.0 % (11.5-14.5) Immature Granulocyte % (Auto) 0.4 % Immature Granulocyte # (Auto) 0.03 K/uL (0.00-0.02) Anion Gap 5.0 mmol/L (3-11) Est Creatinine Clear Calc Drug Dose 111.2 ml/min Estimated GFR () 92.1 Estimated GFR (Non- 79.5 BUN/Creatinine Ratio 14.4 (10-20) Calcium Level 8.2 mg/dl (8.5-10.1) Total Bilirubin 0.3 mg/dl (0.2-1) Direct Bilirubin < 0.1 mg/dl (0-0.2) Aspartate Amino Transf (AST/SGOT) 26 U/L (15-37) Alanine Aminotransferase (ALT/SGPT) 51 U/L (12-78) Alkaline Phosphatase 103 U/L (45-117) Troponin I < 0.015 ng/ml (0-0.045) Total Protein 7.2 gm/dl (6.4-8.2) Albumin 3.6 gm/dl (3.4-5.0) Lipase 111 U/L (73-393) Bedside Troponin I < 0.030 ng/ml (0-0.045) Medications Administered Medications (Trade) Dose Ordered Sig/Edouard Route Start Time Stop Time Status Last Admin Dose Admin Metoclopramide HCl (Reglan Inj) 10 mg NOW STAT IV 03/12/18 21:59 03/12/18 22:01 DC 03/12/18 22:13 10 MG Diphenhydramine HCl (Benadryl Inj) 12.5 mg NOW STAT IV 03/12/18 21:59 03/12/18 22:01 DC 03/12/18 22:14 12.5 MG Lidocaine HCl (Viscous Lidocaine 2% Soln) 10 ml NOW STAT PO 03/12/18 21:59 03/12/18 22:01 DC 03/12/18 22:13 10 ML Al Hydroxide/Mg Hydroxide (Maalox Susp) 30 ml NOW STAT PO 03/12/18 21:59 03/12/18 22:01 DC 03/12/18 22:13 30 ML Acetaminophen (Tylenol Tab) 1,000 mg NOW STAT PO 03/12/18 23:31 03/12/18 23:32 DC 03/12/18 23:36 1,000 MG ED Course Prior records/ancillary studies reviewed. Triage Nursing notes reviewed. Additional history obtained from family. The patient's history was concerning for abdominal pain and mild chest discomfort after getting a text that he was going to be shot if he does not get money. Differential diagnosis: Etiologies such as anxiety, appendicitis, diverticulitis, PUD, biliary pathology , UTI, pancreatitis, obstruction, mesenteric ischemia, aortic pathology, infections, inflammatory bowel disease, renal colic, as well as others were entertained. Physical examination findings: As above. ER treatment provided: GI cocktail On reassessment the patient felt better. Diagnostics interpreted by me: ECG: Normal sinus, normal intervals, no acute ST-T wave changes. Impression normal sinus rhythm interpreted by myself The labs revealed 2 negative troponins greater than 2 hours apart Imaging studies: Ultrasound negative for acute cholecystitis per radiology Chest x-ray with no acute consolidation, pneumothorax or free of my interpretation HEART SCORE: Hx: high/mod/low suspicion: 0 ECG: ST depression/nonspecific changes/normal: 0 Age: Greater than 65/45-64/less than 45: 0 Risk factors: (Hypertension, hyperlipidemia, diabetes, coronary disease, tobacco use, cocaine use): 1 Troponin: Greater than 2 times normal limits/1-2 times normal limits/normal: 0 Total: 1 Exam and history seem consistent with chronic ongoing abdominal discomfort with unclear etiology with brief episode of chest discomfort that resolved most likely related to anxiety from the threats. Patient had 2 negative troponins. Normal EKG. He was neurovascularly and neurologically intact. He felt much better to be medicated as above. He was eating crackers and drinking Coke. He is advised to follow-up this week with his family care doctor here in the ER sooner for abdominal pain, fevers, chest pain, worsening signs or symptoms or as needed. Patient's heart score was 1.By the evaluation outlined above emergent etiologies such as appendicitis, diverticulitis, PUD, biliary pathology , UTI, pancreatitis, obstruction, mesenteric ischemia, aortic pathology, infections, inflammatory bowel disease, renal colic, as well as others were deemed relatively unlikely. The pt informed about the findings as listed above. All questions were answered and pleased with the treatment. Return instructions were outlined and the patient was discharged in stable condition. Case reviewed with my attending Referral: The patient was referred back to their primary care physician for follow-up in 2 to 3 days for a recheck of the current condition. The chart was completed utilizing [employer] Speech voice recognition software. Grammatical errors, random word insertions, pronoun errors, and incomplete sentences are an occassional consequence of this system due to software limitations, ambient noise, and hardware issues. Any formal questions or concerns about the content, text, or information contained within the body of this dictation should be directly addressed to the physician assistant head cashier for clarification. Medical Decision As above Medication Reconcilliation Current Medication List: was personally reviewed by me Blood Pressure Screening Patient's blood pressure: Normal blood pressure Impression Primary Impression: Right upper quadrant abdominal pain Additional Impressions: Chest pain Nausea Departure Information Dispostion Home / Self-Care Condition GOOD Forms Call Back Authorization, IMPORTANT VISIT INFORMATION Patient Instructions Chest Pain - [facility], Abdominal Pain - [facility], [facility] Additional Instructions Acetaminophen(Tylenol) may be used for fever or pain. Use 1000mg every six hours as needed. Avoid using more than 3000mg in a 24 hour period. Rest and drink plenty of fluids as tolerated. Continue current medications. Avoid strenuous activities and anything that worsens your pain. Resume normal activities once your symptoms resolve. Return to the ER immediately for worsening or persistent chest pain, abdominal pain, vomiting, fevers, chest pains, difficulty breathing, worsening of your condition, or as needed. Follow up with your primary physician in 2-3 days for a recheck of your current condition. Problem Qualifiers Additional Impressions: Chest pain Chest pain type: unspecified Qualified Codes: R07.9 - Chest pain, unspecified
--- NOTE | 2018-03-13 06:45 | DIAGNOSTIC IMAGING REPORT ---
BILIARY ULTRASOUND CLINICAL HISTORY: Right upper quadrant abdominal pain COMPARISON STUDY: 02/06/2018 FINDINGS: The study was difficult from a technical standpoint due to the patient's body habitus. The pancreas is not visualized. No focal hepatic masses are visualized. The liver was of increased echogenicity, nonspecific finding often seen in hepatic steatosis. There is no right-sided hydronephrosis. No gallstones are visualized. There is no ductal dilatation. The common bile duct measured 4 mm. IMPRESSION: 1. Technically limited study 2. No gallstones identified. No evidence of ductal dilatation 3. Increased hepatic echogenicity, a nonspecific finding most often seen in hepatic steatosis Electronically signed by: Cristóbal Ferguson M.D. 03/13/2018 6:44 AM Dictated Date/Time: 03/13/2018 6:43 AM
== END 2018-03-13 00:15 | disposition home or self-care (01) ==
LOC: EDBD 20:59 → C.EDB 21:00
DX: R07.9 Chest pain, unspecified (principal); R10.11 Right upper quadrant pain; R11.0 Nausea; K21.9 Gastro-esophageal reflux disease without esophagitis; E66.01 Morbid (severe) obesity due to excess calories; Z68.41 Body mass index [BMI] 40.0-44.9, adult; J45.909 Unspecified asthma, uncomplicated; I10 Essential (primary) hypertension; G47.30 Sleep apnea, unspecified; F32.9 Major depressive disorder, single episode, unspecified; Z79.82 Long term (current) use of aspirin

== ENCOUNTER 2018-03-20 19:56 | Emergency (ER) | payer OTHER ==
[~2018-03-20] VITALS: Ht 167.6 cm; Wt 135.1 kg
[~2018-03-20 19:56] MED LIST changes: -ALBINS/ INH; +ALBINS/ NEB
[2018-03-20 20:13] VITALS: TEMP 36.6; Ht 167.6 cm; Wt 135.1 kg
[2018-03-20] MEDS ORDERED: SODIUM CHLORIDE 0.9% 1000ML 1,000 ML IV STA (20:48)
--- NOTE | 2018-03-20 20:52 | EMERGENCY ROOM VISIT NOTE ---
History Report prepared by Lazaro: Phillip Yoo Under the Supervision of: Dr. Kolby Andrew M.D. First contact with patient: 20:44 Chief Complaint: ABDOMINAL PAIN Stated Complaint: LT SIDE PAIN LOWER BACK AND PRIVATE History of Present Illness The patient is a 42 year old male who presents to the Emergency Room with complaints of constant, left-sided abdominal pain beginning earlier today. The patient states his symptoms radiate into his left back and bending increases his discomfort. He reports he could not pick anything up at work today. The patient notes he no longer is on blood thinners. Source of History: patient Onset: earlier today Position: abdomen (left sided) Timing: constant Modifying Factors (Worsening): movement (bending over) Associated Symptoms: + back pain Review of Systems See HPI for pertinent positives & negatives. A total of 10 systems reviewed and were otherwise negative. Past Medical & Surgical Medical Problems: (1) Asthma (2) Asthma, Unspecified, W (Acute) Exacerbation (3) Asthma, Unspecified, W (Acute) Exacerbation (4) Depression (5) Diab Hannah Wo Compl, Type Ii Or Unspec Type, Not Uncntrld (6) GERD (gastroesophageal reflux disease) (7) History of basal cell carcinoma (8) History of pulmonary embolism (9) History of renal cell carcinoma (10) Hypertension (11) Hypertension Nos (12) Obesity, morbid, BMI 40.0-49.9 (13) Sleep apnea Surgical Problems: (1) History of partial nephrectomy (2) Status post inguinal hernia repair Family History Coronary artery disease FATHER Diabetes mellitus FATHER Hypertension MOTHER Kidney disease FATHER Social History Smoking Status: Never Smoker Alcohol Use: none Drug Use: none Marital Status: Housing Status: lives with family Occupation Status: employed Current/Historical Medications Scheduled Aspirin (Aspirin Chewable), 81 MG PO QAM Atorvastatin (Lipitor), 10 MG PO QAM Bupropion Hcl (Wellbutrin Xl), 300 MG PO QAM Citalopram Hydrobromide (Celexa), 40 MG PO QAM Hydrochlorothiazide (Hydrochlorothiazide), 50 MG PO QAM Lisinopril (Zestril), 40 MG PO QAM Mometasone Furoate-Formoterol (Dulera 200/5 Mcg), 2 PUFFS INH BID Montelukast Sodium (Singulair), 10 MG PO QAM Pantoprazole (Protonix), 40 MG PO BID Potassium Chloride (Micro-K Ext Rel), 10 MEQ PO TIDM Tamsulosin HCl (Tamsulosin HCl), 0.4 MG PO HS Verapamil Hcl (Calan Sr Ext Rel), 180 MG PO QAM Scheduled PRN Albuterol Hfa (Ventolin Hfa), 2 PUFFS INH Q4H PRN for Shortness of Breath Albuterol Sulf (Proventil 0.083% 2.5MG/3ML), 2.5 MG NEB Q4H PRN for SOB/Wheezing Nitroglycerin (Nitrostat), 0.4 MG UT UD PRN for Chest Pain Allergies Coded Allergies: Oxycodone (Verified Allergy, Severe, THROAT SWELLED UP, HARD TIME BREATHING, 02/04/18) GI UPSET, CONSTIPATION Penicillins (Verified Allergy, Severe, THROAT SWELLING, 02/04/18) Ketorolac (Verified Allergy, Intermediate, UPSET STOMACH/ ITCHY, 02/04/18) Tramadol (Verified Allergy, Intermediate, RASH, UPSET STOMACH, 02/04/18) Dicyclomine (Verified Allergy, Mild, RASH, 03/20/18) Physical Exam Vital Signs Date Time Temp Pulse Resp B/P (MAP) Pulse Ox O2 Delivery O2 Flow Rate FiO2 03/20/18 23:16 57 18 153/103 97 03/20/18 21:50 82 19 97 Room Air 03/20/18 20:13 36.6 76 20 176/110 96 Physical Exam GENERAL: Awake, alert, well-appearing, in no acute distress HENT: Normocephalic, atraumatic. Oropharynx unremarkable. EYES: Normal conjunctiva. Sclera non-icteric. NECK: Supple. No nuchal rigidity. FROM. No JVD. RESPIRATORY: Clear to auscultation. CARDIAC: Regular rate, normal rhythm. Extremities warm and well perfused. Pulses equal. ABDOMEN: Soft, non-distended. No tenderness to palpation. No rebound or guarding. No masses. RECTAL: Deferred. MUSCULOSKELETAL: Chest examination reveals no tenderness. The back is symmetrical on inspection without obvious abnormality. There is no CVA tenderness to palpation. No joint edema. LOWER EXTREMITIES: Calves are equal size bilaterally and non-tender. No edema. No discoloration. NEURO: Normal sensorium. No sensory or motor deficits noted. SKIN: No rash or jaundice noted. Medical Decision & Procedures ER Provider Diagnostic Interpretation: Radiology results as stated below per my review and radiologist interpretation: RENAL ULTRASOUND HISTORY: Left lower quadrant abdominal pain. COMPARISON: Abdominal ultrasound 02/06/2018. Abdomen and pelvis CT 12/20/2017. FINDINGS: Right kidney: 11.9 cm. No hydronephrosis. Normal corticomedullary differentiation and cortical thickness. Left kidney: 11.0 cm. No hydronephrosis. The cortex is slightly echogenic and there is associated cortical scarring. This remains unchanged. Bladder: No bladder wall thickening. The bilateral ureteral jets were identified. IMPRESSION: 1. No hydronephrosis. 2. Slightly echogenic left kidney with associated cortical scarring. Electronically signed by: Aguilar Juarez M.D. 03/20/2018 10:26 PM Dictated Date/Time: 03/20/2018 10:24 PM KUB HISTORY: Left lower quadrant abdominal pain. COMPARISON: KUB 05/16/2016. Abdomen and pelvis CT 12/20/2017. FINDINGS: The bowel gas pattern is unremarkable. There are no dilated loops of small bowel to suggest an obstruction. Stable 3 mm stone within the upper pole the right kidney. No left renal calculi. No ureteral calculi. No pneumoperitoneum or pneumatosis. Suture material within the right lower quadrant. IMPRESSION: 1. Stable right-sided nephrolithiasis. 2. No left renal or ureteral calculi identified. Electronically signed by: Aguilar Juarez M.D. 03/20/2018 10:28 PM Dictated Date/Time: 03/20/2018 10:26 PM Laboratory Results 03/20/18 20:45 Red Blood Count 4.96, Mean Corpuscular Volume 88.7, Mean Corpuscular Hemoglobin 29.8, Mean Corpuscular Hemoglobin Concent 33.6, Mean Platelet Volume 9.1, Neutrophils (%) (Auto) 64.2, Lymphocytes (%) (Auto) 23.5, Monocytes (%) (Auto) 10.8, Eosinophils (%) (Auto) 0.9, Basophils (%) (Auto) 0.2, Neutrophils # (Auto ) 5.94, Lymphocytes # (Auto) 2.18, Monocytes # (Auto) 1.00, Eosinophils # (Auto ) 0.08, Basophils # (Auto) 0.02 03/20/18 20:45 Test 03/20/18 20:45 White Blood Count 9.26 K/uL (4.8-10.8) Red Blood Count 4.96 M/uL (4.7-6.1) Hemoglobin 14.8 g/dL (14.0-18.0) Hematocrit 44.0 % (42-52) Mean Corpuscular Volume 88.7 fL (80-100) Mean Corpuscular Hemoglobin 29.8 pg (25-34) Mean Corpuscular Hemoglobin Concent 33.6 g/dl (32-36) Platelet Count 300 K/uL (130-400) Mean Platelet Volume 9.1 fL (7.4-10.4) Neutrophils (%) (Auto) 64.2 % Lymphocytes (%) (Auto) 23.5 % Monocytes (%) (Auto) 10.8 % Eosinophils (%) (Auto) 0.9 % Basophils (%) (Auto) 0.2 % Neutrophils # (Auto) 5.94 K/uL (1.4-6.5) Lymphocytes # (Auto) 2.18 K/uL (1.2-3.4) Monocytes # (Auto) 1.00 K/uL (0.11-0.59) Eosinophils # (Auto) 0.08 K/uL (0-0.5) Basophils # (Auto) 0.02 K/uL (0-0.2) RDW Standard Deviation 45.7 fL (36.4-46.3) RDW Coefficient of Variation 14.1 % (11.5-14.5) Immature Granulocyte % (Auto) 0.4 % Immature Granulocyte # (Auto) 0.04 K/uL (0.00-0.02) Urine Color YELLOW Urine Appearance CLEAR (CLEAR) Urine pH 5.0 (4.5-7.5) Urine Specific [place] 1.020 (1.000-1.030) Urine Protein NEG (NEG) Urine Glucose (UA) NEG (NEG) Urine Ketones NEG (NEG) Urine Occult Blood NEG (NEG) Urine Nitrite NEG (NEG) Urine Bilirubin NEG (NEG) Urine Urobilinogen NEG (NEG) Urine Leukocyte Esterase NEG (NEG) Anion Gap 5.0 mmol/L (3-11) Est Creatinine Clear Calc Drug Dose 102.6 ml/min Estimated GFR () 84.7 Estimated GFR (Non- 73.1 BUN/Creatinine Ratio 16.3 (10-20) Calcium Level 8.6 mg/dl (8.5-10.1) Total Bilirubin 0.3 mg/dl (0.2-1) Direct Bilirubin < 0.1 mg/dl (0-0.2) Aspartate Amino Transf (AST/SGOT) 45 U/L (15-37) Alanine Aminotransferase (ALT/SGPT) 56 U/L (12-78) Alkaline Phosphatase 120 U/L (45-117) Total Protein 7.7 gm/dl (6.4-8.2) Albumin 3.9 gm/dl (3.4-5.0) Lipase 118 U/L (73-393) Labs reviewed by ED physician. Medications Administered Medications (Trade) Dose Ordered Sig/Edouard Route Start Time Stop Time Status Last Admin Dose Admin Sodium Chloride 1,000 ml @ 999 mls/hr Q1H1M STAT IV 03/20/18 20:48 03/20/18 21:48 DC 03/20/18 21:29 999 MLS/HR Diphenhydramine HCl (Benadryl Inj) 50 mg NOW STAT IV 03/20/18 21:16 03/20/18 21:17 DC 03/20/18 21:29 50 MG Prochlorperazine Edisylate (Compazine Inj) 10 mg NOW STAT IV 03/20/18 21:16 03/20/18 21:17 DC 03/20/18 21:29 10 MG Magnesium Citrate (Citrate Of Magnesia Soln) 296 ml NOW STAT PO 03/20/18 22:38 03/20/18 22:39 DC 03/20/18 23:02 296 ML Potassium Chloride (Klor-Con M10) 40 meq STK-MED ONCE .ROUTE 03/20/18 23:00 03/20/18 23:01 DC 03/20/18 23:00 40 MEQ ED Course 2045: Past medical records reviewed. The patient was evaluated in room C12B. A complete history and physical examination was performed. 2047: Ordered Sodium Chloride 1000 ml @ 999 mls/hr IV 2115: Ordered Compazine Inj 10 mg IV, Benadryl 50mg IV 2237: Ordered Magnesium Citrate 296ml PO 2300: Ordered Potassium Chloride 40meq .ROUTE 1: Upon reexamination the patient is resting and feeling much better. I discussed results and treatment plan with the patient. He verbalizes agreement and understanding. The patient is ready for discharge. Medical Decision Etiologies such as appendicitis, diverticulitis, PUD, biliary pathology, UTI, pancreatitis, obstruction, mesenteric ischemia, aortic pathology, infections, inflammatory bowel disease, renal colic, as well as others were entertained. This is a 42-year-old male who presents emergency department complaining of left lower quadrant abdominal pain. Serial abdominal examinations were performed on the patient in the emergency department and at no time to the patient exhibited a surgical abdomen. I will also note that the patient is afebrile does not have an elevation in his white blood cell count. The patient refused Bentyl here in the emergency department because of previous allergic reaction. He was therefore given Benadryl as well as Compazine. Repeat examination revealed improvement in the patient's symptoms. The patient does appear to have constipation on his KUB. He has no evidence of stones on his ultrasound. Based on these findings I feel that the patient can be safely discharged home. I recommended that the patient perform a magnesium [employer]-R[employer] cleanout with follow-up with his primary care physician. Patient was in agreement with the treatment plan. Medication Reconcilliation Current Medication List: was personally reviewed by me Blood Pressure Screening Patient's blood pressure: Elevated blood pressure Blood pressure disposition: Referred to PCP Impression Primary Impression: Abdominal pain Scribe Attestation The scribe's documentation has been prepared under my direction and personally reviewed by me in its entirety. I confirm that the note above accurately reflects all work, treatment, procedures, and medical decision making performed by me. Departure Information Dispostion Home / Self-Care Referrals Mya Galvan D.O. Forms Call Back Authorization, HOME CARE DOCUMENTATION FORM, IMPORTANT VISIT INFORMATION Patient Instructions Diet Clear Liquid Dc, ED Abdominal Pain Unkn Cause Male, ED Constipation, My [facility] Additional Instructions Clear liquid diet next 48 hours Take 1/2 bottle of Mag Citrate Repeat second half in six hours You have been examined and treated today on an emergency basis only. This is not a substitute for, or an effort to provide, complete comprehensive medical care. It is impossible to recognize and treat all injuries or illnesses in a single emergency department visit. It is therefore important that you follow up closely with Dr Newhouser. Call as soon as possible for an appointment. Thank you for your time and consideration. I look forward to speaking with you again soon. Please don't hesitate to call us if you have any questions. Problem Qualifiers Primary Impression: Abdominal pain Abdominal location: left lower quadrant Qualified Codes: R10.32 - Left lower quadrant pain
[2018-03-20] MEDS ORDERED: DICYCLOMINE HCL 10 MG/ML 2 ML AMP IM ONE (21:00)
[2018-03-20 21:03] LABS: BASO % 0.2 %; BASO ABS # 0.02 K/uL (0-0.2); EOS % 0.9 %; EOS ABS # 0.08 K/uL (0-0.5); HEMOGLOBIN 14.8 g/dL (14.0-18.0); IG# 0.04 K/uL (0.00-0.02); LYMPH % 23.5 %; LYMPH ABS # 2.18 K/uL (1.2-3.4); MEAN CELL VOLUME 88.7 fL (80-100); MEAN CORPUSCULAR HEMOGLOBIN 29.8 pg (25-34); MEAN CORPUSCULAR HGB CONC 33.6 g/dl (32-36); MEAN PLATELET VOLUME 9.1 fL (7.4-10.4); MONO % 10.8 %; NEUT % 64.2 %; NEUT ABS # 5.94 K/uL (1.4-6.5); PLATELET COUNT 300 K/uL (130-400); RED CELL DISTRIBUTION WIDTH CV 14.1 % (11.5-14.5); RED CELL DISTRIBUTION WIDTH SD 45.7 fL (36.4-46.3); WHITE BLOOD COUNT 9.26 K/uL (4.8-10.8)
[2018-03-20] MEDS ORDERED: DiphenhydrAMINE HCL 50 MG/ML VIAL IV STA (21:16)
[2018-03-20] MEDS ORDERED: PROCHLORPERAZINE 5 MG/ML 2 ML VIAL IV STA (21:16)
[2018-03-20 21:20] LABS: ALBUMIN 3.9 gm/dl (3.4-5.0); ALT/SGPT 56 U/L (12-78); BLOOD UREA NITROGEN 20 mg/dl (7-18); CALCIUM 8.6 mg/dl (8.5-10.1); CARBON DIOXIDE 30 mmol/L (21-32); GLUCOSE 98 mg/dl (70-99); LIPASE 118 U/L (73-393); POTASSIUM 3.4 mmol/L (3.5-5.1); SODIUM 140 mmol/L (136-145)
[2018-03-20 21:23] LABS: ALKALINE PHOSPHATASE 120 U/L (45-117); AST/SGOT 45 U/L (15-37); TOTAL PROTEIN 7.7 gm/dl (6.4-8.2)
--- NOTE | 2018-03-20 22:27 | DIAGNOSTIC IMAGING REPORT ---
RENAL ULTRASOUND HISTORY: Left lower quadrant abdominal pain. COMPARISON: Abdominal ultrasound 02/06/2018. Abdomen and pelvis CT 12/20/2017. FINDINGS: Right kidney: 11.9 cm. No hydronephrosis. Normal corticomedullary differentiation and cortical thickness. Left kidney: 11.0 cm. No hydronephrosis. The cortex is slightly echogenic and there is associated cortical scarring. This remains unchanged. Bladder: No bladder wall thickening. The bilateral ureteral jets were identified. IMPRESSION: 1. No hydronephrosis. 2. Slightly echogenic left kidney with associated cortical scarring. Electronically signed by: Aguilar Juarez M.D. 03/20/2018 10:26 PM Dictated Date/Time: 03/20/2018 10:24 PM
--- NOTE | 2018-03-20 22:29 | DIAGNOSTIC IMAGING REPORT ---
KUB HISTORY: Left lower quadrant abdominal pain. COMPARISON: KUB 05/16/2016. Abdomen and pelvis CT 12/20/2017. FINDINGS: The bowel gas pattern is unremarkable. There are no dilated loops of small bowel to suggest an obstruction. Stable 3 mm stone within the upper pole the right kidney. No left renal calculi. No ureteral calculi. No pneumoperitoneum or pneumatosis. Suture material within the right lower quadrant. IMPRESSION: 1. Stable right-sided nephrolithiasis. 2. No left renal or ureteral calculi identified. Electronically signed by: Aguilar Juarez M.D. 03/20/2018 10:28 PM Dictated Date/Time: 03/20/2018 10:26 PM
[2018-03-20] MEDS ORDERED: POTASSIUM CHLORIDE 20 MEQ TABCR PO STA (22:34)
[2018-03-20] MEDS ORDERED: MAGNESIUM CITRATE 296 ML/BTL PO STA (22:38)
[2018-03-20] MEDS ORDERED: POTASSIUM CHLORIDE 10 MEQ TABCR ONE (23:00)
[2018-03-20 23:16] VITALS: BP 153/103; PULSE 57; O2SAT 97
== END 2018-03-20 23:17 | disposition home or self-care (01) ==
LOC: C.EDB 19:57 → C.EDC 23:17
DX: R10.32 Left lower quadrant pain (principal); J45.909 Unspecified asthma, uncomplicated; E11.9 Type 2 diabetes mellitus without complications; K21.9 Gastro-esophageal reflux disease without esophagitis; I10 Essential (primary) hypertension; F32.9 Major depressive disorder, single episode, unspecified; Z85.828 Personal history of other malignant neoplasm of skin; Z85.528 Personal history of other malignant neoplasm of kidney; Z90.5 Acquired absence of kidney; Z98.890 Other specified postprocedural states; Z86.711 Personal history of pulmonary embolism; Z82.49 Family history of ischemic heart disease and other diseases of the circulatory system; Z83.3 Family history of diabetes mellitus; Z79.82 Long term (current) use of aspirin; Z79.899 Other long term (current) drug therapy

== ENCOUNTER 2018-03-28 19:42 | Emergency (ER) | payer OTHER ==
[~2018-03-28] VITALS: Ht 167.6 cm; Wt 134.7 kg
[2018-03-28 19:45] VITALS: BP 159/98; TEMP 36.9; Ht 167.6 cm; Wt 134.7 kg
--- NOTE | 2018-03-28 19:59 | EMERGENCY ROOM VISIT NOTE ---
History First contact with patient: 19:48 Chief Complaint: ARM PAIN Stated Complaint: FELL DOWN STEPS, HIT STONE, LEFT ARM PAIN History of Present Illness The patient is a 42 year old male who presents to the Emergency Room with complaints of left arm pain after a fall. The patient reports that one of his steps broke when he was walking up the stairs and he fell, striking his left arm off of a rock. The injury occurred just prior to arrival. He is having difficulty moving the elbow due to pain. He rates his discomfort a 10/10. He has not taken any medication for pain. He denies numbness or weakness. He denies hitting his head or any other injuries. Review of Systems A complete 10 point review of systems was reviewed with the patient with pertinent positives and negatives as per history of present illness. All else were negative. Past Medical/Surgical History Medical Problems: (1) Asthma (2) Asthma, Unspecified, W (Acute) Exacerbation (3) Asthma, Unspecified, W (Acute) Exacerbation (4) Depression (5) Diab Hannah Wo Compl, Type Ii Or Unspec Type, Not Uncntrld (6) GERD (gastroesophageal reflux disease) (7) History of basal cell carcinoma (8) History of pulmonary embolism (9) History of renal cell carcinoma (10) Hypertension (11) Hypertension Nos (12) Obesity, morbid, BMI 40.0-49.9 (13) Sleep apnea Surgical Problems: (1) History of partial nephrectomy (2) Status post inguinal hernia repair Family History Coronary artery disease FATHER Diabetes mellitus FATHER Hypertension MOTHER Kidney disease FATHER Social History Smoking Status: Never Smoker Alcohol Use: none Drug Use: none Marital Status: Housing Status: lives with family Occupation Status: employed Current/Historical Medications Scheduled Aspirin (Aspirin Chewable), 81 MG PO QAM Atorvastatin (Lipitor), 10 MG PO QAM Bupropion Hcl (Wellbutrin Xl), 300 MG PO QAM Citalopram Hydrobromide (Celexa), 40 MG PO QAM Hydrochlorothiazide (Hydrochlorothiazide), 50 MG PO QAM Lisinopril (Zestril), 40 MG PO QAM Mometasone Furoate-Formoterol (Dulera 200/5 Mcg), 2 PUFFS INH BID Montelukast Sodium (Singulair), 10 MG PO QAM Pantoprazole (Protonix), 40 MG PO BID Potassium Chloride (Micro-K Ext Rel), 10 MEQ PO TIDM Tamsulosin HCl (Tamsulosin HCl), 0.4 MG PO HS Verapamil Hcl (Calan Sr Ext Rel), 180 MG PO QAM Scheduled PRN Albuterol Hfa (Ventolin Hfa), 2 PUFFS INH Q4H PRN for Shortness of Breath Albuterol Sulf (Proventil 0.083% 2.5MG/3ML), 2.5 MG NEB Q4H PRN for SOB/Wheezing Nitroglycerin (Nitrostat), 0.4 MG UT UD PRN for Chest Pain Physical Exam Vital Signs Date Time Temp Pulse Resp B/P (MAP) Pulse Ox O2 Delivery O2 Flow Rate FiO2 03/28/18 20:50 82 18 99 03/28/18 19:45 36.9 88 20 159/98 98 Room Air Physical Exam VITALS: Vitals are noted on the nurse's note and reviewed by myself. Vital signs stable. GENERAL: This is a 42-year-old male, in no acute distress, nondiaphoretic, well- developed well-nourished. SKIN: No ecchymosis, abrasions or lacerations. MUSCULOSKELETAL: No deformity of the left upper extremity. There is tenderness to palpation of the left mid humerus, elbow and midforearm. Range of motion decreased secondary to patient discomfort. NEURO: Patient was alert and oriented to person place and time. Distal sensation intact. Medical Decision & Procedures ER Provider Diagnostic Interpretation: L HUMERUS MIN 2 VIEWS ROUTINE, L ELBOW MIN 3 VIEWS ROUTINE, L FOREARM 2 VIEWS ROUTINE FINDINGS: HUMERUS: No acute fracture, dislocation or opaque foreign body. ELBOW: No acute fracture, dislocation, significant degenerative changes, opaque foreign body or large joint effusion. FOREARM: No acute fracture, dislocation or significant degenerative changes. No opaque foreign body. IMPRESSION: No acute fracture or dislocation. Medical Decision Differential diagnosis includes fracture, contusion, sprain, dislocation, among others. The patient was evaluated as above. X-rays were obtained and read by radiology as above with no acute fractures noted. Patient has an arm sling at home and was advised to wear this. He will follow-up with his PCP/orthopedics as needed. Conservative measures were discussed. He verbalized understanding of my assessment and treatment plan and was discharged home in good condition. Medication Reconcilliation Current Medication List: was personally reviewed by me Blood Pressure Screening Patient's blood pressure: Elevated blood pressure Blood pressure disposition: Elevated BP felt to be situational Impression Primary Impression: Contusion of left arm Departure Information Dispostion Home / Self-Care Condition GOOD Referrals Mya Galvan D.O. (PCP) Patient Instructions My [facility] Additional Instructions You have been treated in the Emergency Department for Elbow Pain. For pain control, you can use the following coex-mqj-kysyyke medicines (if >12 yo): - Regular strength (325mg/tab) Tylenol (acetaminophen) 2 tabs every 4-6 hours as needed. Do not exceed 12 tablets in a 24 hour period. Avoid taking more than 4 grams (4000 mg) of Tylenol per day. This includes any other sources of acetaminophen you may take on a regular basis. - Regular strength (200 mg/tab) Advil (ibuprofen) 1-2 tabs every 4-6 hours as needed. Do not exceed a dose of 3200 mg per day. If this is a recent injury (<24 hrs), ice can be applied to the area of pain for the first 3 days to help decrease pain and inflammation. Wear the sling as needed for pain. Follow-up with your primary care provider or orthopedics for any persistent pain. Return to the Emergency Department if your current symptoms worsen despite treatment course outlined above, or if you develop any of the following symptoms : intractable pain despite aforementioned treatment course or new onset of numbness or tingling of the arm. Problem Qualifiers Primary Impression: Contusion of left arm Encounter type: initial encounter Qualified Codes: S40.022A - Contusion of left upper arm, initial encounter
--- NOTE | 2018-03-28 20:27 | DIAGNOSTIC IMAGING REPORT ---
L HUMERUS MIN 2 VIEWS ROUTINE, L ELBOW MIN 3 VIEWS ROUTINE, L FOREARM 2 VIEWS ROUTINE HISTORY: 42 years-old Male fall, left arm injury acute left arm pain status post fall COMPARISON: None available TECHNIQUE: 2 views of the left humerus, 3 views of the left elbow and 2 views of the left forearm FINDINGS: HUMERUS: No acute fracture, dislocation or opaque foreign body. ELBOW: No acute fracture, dislocation, significant degenerative changes, opaque foreign body or large joint effusion. FOREARM: No acute fracture, dislocation or significant degenerative changes. No opaque foreign body. IMPRESSION: No acute fracture or dislocation. The above report was generated using voice recognition software. It may contain grammatical, syntax or spelling errors. Electronically signed by: Marquis Edmonds M.D. 03/28/2018 8:26 PM Dictated Date/Time: 03/28/2018 8:24 PM
[2018-03-28 20:50] VITALS: PULSE 82; O2SAT 99
== END 2018-03-28 20:51 | disposition home or self-care (01) ==
LOC: C.EDB 19:43 → C.EDD 20:51
DX: S40.022A Contusion of left upper arm, initial encounter (principal); W10.9XXA Fall (on) (from) unspecified stairs and steps, initial encounter; J45.909 Unspecified asthma, uncomplicated; F32.9 Major depressive disorder, single episode, unspecified; E11.9 Type 2 diabetes mellitus without complications; K21.9 Gastro-esophageal reflux disease without esophagitis; Z85.828 Personal history of other malignant neoplasm of skin; Z86.711 Personal history of pulmonary embolism; Z85.528 Personal history of other malignant neoplasm of kidney; Z90.5 Acquired absence of kidney; I10 Essential (primary) hypertension; E66.01 Morbid (severe) obesity due to excess calories; Z68.41 Body mass index [BMI] 40.0-44.9, adult; G47.30 Sleep apnea, unspecified; I25.10 Atherosclerotic heart disease of native coronary artery without angina pectoris; Z83.3 Family history of diabetes mellitus; Z84.1 Family history of disorders of kidney and ureter; Z79.82 Long term (current) use of aspirin; Z79.899 Other long term (current) drug therapy